=== PATIENT | female | born 1945 | race Caucasian/White ===

== ENCOUNTER 2020-03-05 08:10 | Outpatient (CLI) | payer MEDICARE, SELFPAY ==
[2020-03-05 10:00] LABS: Basophils Percent Auto 0.7 % (0.2-1.2); Eosinophils Absolute Auto 0.3 K/mm3 (0-0.3); Eosinophils Percent Auto 4.4 % (0-4.4); Hematocrit 37.7 % (37.0-47.0); Hemoglobin 12.1 g/dL (12.0-15.0); Immature Granulocyte Absolute 0.02 K/mm3 (0.00-0.031); Immature Granulocyte Percent A 0.3 % (0-0.5); Lymphocytes Absolute Auto 1.56 K/mm3 (0.9-3.2); Lymphocytes Percent Auto 26.2 % (18.3-44.2); Mean Corpuscular HGB Conc 32.1 g/dl (32-36); Mean Corpuscular Volume 93.5 fl (80-100); Mean Platelet Volume 9.4 fl (7.4-10.4); Monocytes Absolute Auto 0.5 K/mm3 (0.1-0.6); Monocytes Percent Auto 7.7 % (2.6-8.5); Neutrophils Absolute Auto 3.6 K/mm3 (1.3-6.7); Neutrophils Percent Auto 60.7 % (45.5-73.1); Platelet Count Result 287 k/mm3 (150-375); Red Blood Count 4.03 M/mm3 (4.2-5.4); Red Cell Distribution Width 13.2 % (11.5-14.5)
[2020-03-05 10:10] LABS: INR 0.9; Prothrombin Time 12.1 Seconds (11.1-14.7)
[2020-03-05 10:11] LABS: Partial Thromboplastin Time 23.6 SECONDS (22.3-36.8)
[2020-03-05 10:25] LABS: Alanine Aminotransferase 15 U/L (4-35); Albumin Level 4.4 g/dL (3.5-5.1); Alkaline Phosphatase 97 U/L (38-126); Aspartate Amino Transferase 26 U/L (14-36); Bilirubin,Total 0.3 mg/dL (0.2-1.3); Blood Urea Nitrogen 11 mg/dL (7-17); Calcium 9.4 mg/dL (8.4-10.2); Carbon Dioxide 28 mmol/L (22-30); Chloride 104 mmol/L (98-107); Estimated Glomerular Filt Rate > 60; Glucose 128 mg/dL (65-105); Potassium 3.4 mmol/L (3.4-5.0); Sodium 138 mmol/L (137-145)
[2020-03-05 10:42] LABS: Hemoglobin A1C 6.5 % (<5.7)
== END 2020-03-05 08:11 | disposition home or self-care (01) ==
LOC: ANHSURGERY 08:14
PROVIDERS: PCP Family Medicine; Visit Provider Urology
DX: E11.9 Type 2 diabetes mellitus without complications (principal); N81.4 Uterovaginal prolapse, unspecified; Z01.812 Encounter for preprocedural laboratory examination
CPT/HCPCS: 36415; 80053; 83036; 85025; 85610; 85730; 86850; 86900; 86901; 87077; 87086; 87088

== ENCOUNTER 2020-03-12 00:08 | Outpatient (CLI) | payer MEDICARE, SELFPAY ==
[2020-03-12 17:53] LABS: SARS-CoV-2 RNA PCR Negative
== END 2020-03-12 00:09 | disposition home or self-care (01) ==
LOC: ANHCOVIDDT 00:09
PROVIDERS: PCP Family Medicine; Visit Provider Urology
DX: Z20.828 Contact with and (suspected) exposure to other viral communicable diseases (principal); Z01.812 Encounter for preprocedural laboratory examination
CPT/HCPCS: 87635; C9803; U0003

== ENCOUNTER 2020-03-15 01:56 | Day surgery (SDC) | payer MEDICARE, SELFPAY ==
[2020-03-05 09:29] VITALS: BP 150/79; PULSE 68; RESP 16; TEMP 37; O2SAT 100
[2020-03-05 09:45] VITALS: BMI 27.3
[2020-03-05 09:46] VITALS: BMI 27.3
[2020-03-15] VITALS (20 sets, daily range): BP systolic 107–153; BP diastolic 41–72; PULSE 46–85; RESP 9–20; TEMP 36.2–36.7; O2SAT 91–100
--- NOTE | 2020-03-15 01:27 | PM.IMHP ---
H&P: HPI History of Present Illness Chief complaint: Uterine Polapse Narrative: Katja Diaz is a 75 year old female with a long history of pelvic relaxation with grade 3 cystocele and cervical descensus. She was unsing a pessary and does not want to use the pessary anymore. She has been evaluated by Dr. Chen and has opted for hysterectomy with the sacralcolpopexy. Review of Systems Review of Systems: All systems reviewed & are unremarkable except as noted in HPI and below Constitutional: Constitutional: Reports as per HPI Cardiovascular: Cardiovascular: Reports no additional cardiovascular complaints and Denies dyspnea Respiratory: Respiratory: Reports no additional respiratory complaints and Denies dyspnea Gastrointestinal: Gastrointestinal: Reports no additional gastrointestinal complaints and Denies abdominal pain Genitourinary: Genitourinary: Reports as per HPI Integumentary/Breasts: Skin/Breast: Reports as per HPI, Denies breast pain and Denies breast mass Neurologic: Reports system reviewed and no additional complaints, except as documented Psychiatric: Psychiatric: Reports no additional psychiatric complaints Endocrine: Endocrine: Reports no additional endocrine complaints [facility] Past Medical History Medical History (Updated 03/15/20 @ 06:54 by Chas Pedro MD) Arthritis Blockage of coronary artery of heart Chronic neck pain Cystocele Diabetes GERD (gastroesophageal reflux disease) History of shingles Hypertension Hypothyroidism Pelvic relaxation Surgical History Surgical History (Updated 03/15/20 @ 06:54 by Chas Pedro MD) History of coronary artery stent placement x1 stent 2012 Hx of cardiac catheterization 2012 1 STENT Social History Social History Smoking status: Never smoker Second hand tobacco smoke exposure: No Alcohol intake: never Gender identity (if verbalized by the patient): Female Meds Home Medications and Allergies Home Medications Medication Instructions Recorded Confirmed Type aspirin 81 mg tablet,delayed 81 mg PO DAILY 08/25/19 03/15/20 History release calcium carbonate 600 mg calcium 600 mg PO DAILY 08/25/19 03/15/20 History (1,500 mg) tablet esomeprazole magnesium 20 mg 20 mg PO DAILY 08/25/19 03/15/20 History capsule,delayed release losartan 25 mg tablet 25 mg PO BID 08/25/19 03/15/20 History metoprolol tartrate 25 mg tablet 12.5 mg PO BID 08/25/19 03/15/20 History levothyroxine 100 mcg tablet 100 mcg PO DAILY #90 tablet 09/10/19 03/15/20 Rx metformin 500 mg tablet,extended 500 mg PO DAILY #90 tablet 12/24/19 03/15/20 Rx release 24 hr cholecalciferol (vitamin D3) 50 50 mcg PO DAILY 01/02/20 03/15/20 History mcg (2,000 unit) capsule Adult Probiotic 3,000 mmu cells PO DAILY 03/05/20 03/15/20 History Multiple Vitamin, Womens 1 tablet PO DAILY 03/05/20 03/15/20 History docusate sodium [Colace] 100 mg PO BID #60 cap 03/15/20 Rx hydrocodone-acetaminophen [[place]] 1 tablet PO Q4H PRN #20 tablet 03/15/20 Rx Allergies Allergy/AdvReac Type Severity Reaction Status Date / Time clindamycin Allergy Unknown Rash Verified 03/15/20 06:21 Penicillins Allergy Unknown Swelling Verified 03/15/20 06:21 of Lip/Tongue/Throat Sulfa (Sulfonamide Allergy Unknown Rash Verified 03/15/20 06:21 Antibiotics) lisinopril AdvReac Mild Cough Verified 03/15/20 06:21 Exam Const: General: healthy appearing, no acute distress, alert and awake Nutritional Appearance: well nourished Orientation/consciousness: oriented to person, oriented to place, oriented to time and patient oriented x3 HENMT: Head: normal to inspection Eyes: General: appearance normal, both eyes and all related structures Neck: Neck: normal visual inspection Lymphatic: no lymphadenopathy noted Resp: Effort & Inspection: normal respiratory effort and other Auscultation: clear to auscultation bilaterall
--- NOTE | 2020-03-15 06:05 | WPDHPUPDATE1 ---
History and Physical Update Update Date/Time: 03/15/20 06:05 History and Physical has been reviewed, including an updated exam of the patient. There are NO changes in the patient's condition. Risks, benefits, and alternatives have been discussed and questions answered. Patient agrees to proceed with procedure.
[2020-03-15] MEDS: LACTATED RINGERS 1,000 ML 30 ML IV CONT ×2 (06:35→10:33)
[2020-03-15 06:45] LABS: Glucose Point of Care 111 (65-105)
--- NOTE | 2020-03-15 06:49 | WPDANESEPPF ---
Anes - Initial Pre Proc Eval Procedure: Operation Date: 03/15/20 07:30 Proposed Procedures p Robotic Sacrocolpopexy,Possible Urethral Sling - Holland Chen MD s Robotic Assisted Supracervical Hysterectomy, Bilateral Salpingo-Oophorectomy - Artem Ayala MD Date/Time: 03/15/20 06:49 Surgeon: Holland Chen MD Pre Op Diagnosis: Uterine Polapse Patient Data Age: 75 Gender: F Height: 1.55 m Weight: 65.8 kg Last Vital Signs Temp 37.0 C 03/05/20 09:29 Pulse 68 03/05/20 09:29 Resp 16 03/05/20 09:29 BP 150/79 H 03/05/20 09:29 Pulse Ox 100 03/05/20 09:29 Allergies Allergy/AdvReac Type Severity Reaction Status Date / Time clindamycin Allergy Unknown Rash Verified 03/15/20 06:21 Penicillins Allergy Unknown Swelling Verified 03/15/20 06:21 of Lip/Tongue/Throat Sulfa (Sulfonamide Allergy Unknown Rash Verified 03/15/20 06:21 Antibiotics) lisinopril AdvReac Mild Cough Verified 03/15/20 06:21 Home Medications Medication Instructions Recorded Confirmed Type aspirin 81 mg tablet,delayed 81 mg PO DAILY 08/25/19 03/15/20 History release calcium carbonate 600 mg calcium 600 mg PO DAILY 08/25/19 03/15/20 History (1,500 mg) tablet esomeprazole magnesium 20 mg 20 mg PO DAILY 08/25/19 03/15/20 History capsule,delayed release losartan 25 mg tablet 25 mg PO BID 08/25/19 03/15/20 History metoprolol tartrate 25 mg tablet 12.5 mg PO BID 08/25/19 03/15/20 History levothyroxine 100 mcg tablet 100 mcg PO DAILY #90 tablet 09/10/19 03/15/20 Rx metformin 500 mg tablet,extended 500 mg PO DAILY #90 tablet 12/24/19 03/15/20 Rx release 24 hr cholecalciferol (vitamin D3) 50 50 mcg PO DAILY 01/02/20 03/15/20 History mcg (2,000 unit) capsule lactobacillus combination no.8 3,000 mmu cells PO DAILY 03/05/20 03/15/20 History [Adult Probiotic] lrjsvyaonltl-Ce-ruyv-minerals 1 tablet PO DAILY 03/05/20 03/15/20 History [Multiple Vitamin, Womens] Laboratory Tests 03/15/20 06:36 POC Capillary Glucose 111 mg/dl H mg/dl (65-105) Other Studies: stress 03/2019 - normal perfusion, ef 73% Patient hx anesthesia problems: none Family hx anesthesia problems: none PMFSH Past Medical History Medical History (Updated 03/15/20 @ 06:54 by Chas Pedro MD) Arthritis Blockage of coronary artery of heart Chronic neck pain Cystocele Diabetes GERD (gastroesophageal reflux disease) History of shingles Hypertension Hypothyroidism Pelvic relaxation Surgical History Surgical History (Updated 03/15/20 @ 06:54 by Chas Pedro MD) History of coronary artery stent placement x1 stent 2011 Hx of cardiac catheterization 2011 1 STENT Social History Social History Smoking status: Never smoker Second hand tobacco smoke exposure: No Alcohol intake: never Gender identity (if verbalized by the patient): Female Anes - Eval Final PreProcedure Day of Procedure 03/15/20 06:49 Patient weight: overweight Heart: regular rate and rhythm Lungs: clear to auscultation and normal air movement Airway: Mallampati scale class II Neurological: alert and oriented Last oral intake: >/= 8 hours ASA classification: III Emergent: no Anesthetic plan: proceed Anesthesia type and monitoring: general ETT Informed Consent: The patient's anesthetic plan and its attendant risks and benefits were discussed with the patient/family/POA. Questions were solicited and answers provided to the satisfaction of the patient/family/POA.
--- NOTE | 2020-03-15 07:34 | SUR.PREOP ---
family update provided to daughter anthony
[2020-03-15] MEDS: levoFLOXacin 500 MG/D5W 100 ML 500 MG/100 ML BAG 100 MG IVPB (07:39)
[2020-03-15] MEDS: metroNIDAZOLE 500 MG/ISO 100ML 500 MG/100 ML BAG 100 MG IVPB ×2 (07:50→17:24)
--- NOTE | 2020-03-15 09:00 | P.OP_ITS ---
Procedure Note - Detailed Date of procedure: 03/16/20 Pre-op diagnosis: Uterine Polapse 1. Pelvic organ prolapse 2.Cystocele Post-op diagnosis: same Procedure performed: Robotic assisted laparoscopic supracervical hysterectomy with bilateral salpingo-oophorectomy. Description of procedure: Patient was taken to the operating room. General endotracheal anesthesia was administered. She was placed in low lithotomy pos ition and prepped and draped in sterile fashion. An exam under anesthesia was performed she was noted to have a prolapsing cystocele her cervix was within 1 cm of the introitus. At this time Dr. Chen started the procedure with insertion of the ports please see his note for dictation of this. After the ports were inserted then attention was turned to the surgery console and attention was turned to the right round ligament which was grafted incised in the midline and cauterized. The anterior leaf of the broad ligament was further dissected anteriorly dissecting the peritoneum from the of the bladder from the lower uterine segment. Attention was then turned to the left infundibulopelvic ligament which was cauterized and incised the fallopian tube was then cauterized from the broad ligament. The broad ligament was further cauterized the ascending uterine vessels were cauterized the uterine arteries were skeletonized and the uterine arteries were then cauterized on the right side. Attention was then turned to the left side the distal fallopian tube was adhesed to the left pelvic wall the adhesions were lysed the distal fallopian tube was then cauterized the infundibulopelvic ligament on the left was cauterized and incised the fallopian tube was further cauterized from the broad ligament. Attention was then turned to the left round ligament which was grasped in the middle and dense and cauterized and incised the anterior leaf of the broad ligament was further dissected anteriorly the vesicouterine peritoneum was dissected from the lower uterine segment the bladder was mobilized from the lower uterine segment the ascending uterine vessels were cauterized the uterine arteries were skeletonized. The cervix was then cauterized from the lower uterine segment. The cervical bed was cauterized hemostasis was noted. An Endo-Catch bag was inserted and the uterus fallopian tubes and ovaries were placed into the back and secured. Hemostasis was noted at the surgery site patient tolerated procedure well EBL was less than [address] Chen then took over the care of the patient. Anesthesia: GETA Surgeon: Artem Ayala MD Estimated blood loss (mL): 5 Drains: No Packing: No Pathology: yes (uterus with right and left fallopian tubes and ovaries) Complications: No immediate complications Condition: stable Disposition: other (Patient remained in room for Dr. Chen's procedure.) Findings: Normal uterus fallopian tubes and atretic ovaries bilaterally.
[2020-03-15] MEDS: BUPIVACAINE/EPINEPHRINE 0.25% 50 ML VIAL 27 ML INFILTRATE (10:01)
--- NOTE | 2020-03-15 10:18 | PM.PROC ---
Procedure Note - Detailed Date of procedure: 03/15/20 Pre-op diagnosis: Uterine Polapse Uterine prolapse Female perineal laxity Stress urinary incontinence Post-op diagnosis: same Procedure performed: Robotic assisted laparoscopic sacral colpopexy Perineoplasty Mid urethral sling Cystoscopy Description of procedure: She understood the risks of bleeding, infection, damage to surrounding organs, bowel injury, bowel obstruction, recurrence of prolapse, persistent or recurrent stress incontinence, mesh related complications including exposure and extrusion, diskitis, postoperative voiding dysfunction including incontinence and retention, hip and leg pain, dyspareunia, and she agrees to proceed. She was correctly identified and informed consent was obtained. She was brought to the operating room. She was given general anesthesia. She was placed in the dorsal lithotomy position. All pressure points were padded. She was given appropriate perioperative antibiotics. Time-out performed. I anesthetized the skin 3 fingerbreadths cephalad to the umbilicus. I incised the skin. I dissected down to locate the fascia. I grasped the fascia with Jose clamps. I entered the fascia sharply. I placed Vicryl sutures for later fascial closure. I placed a midline trocar. Under direct vision 2 additional trocars were placed on the right and left upper quadrant. For a few wispy adhesions of omentum to the anterior abdominal wall. These were taken down sharply. There is no sign of any injury. She was placed in steep Trendelenburg and the robot was docked. Her pairer performed the portion of the procedure and left the specimen and a sac which was extracted. I then sat at the console. With the Sizer in the vagina I created a plane on the anterior and posterior vaginal wall. This was done for several cm taking great care not to injure the vagina, bladder, or rectum. I introduced the mesh into the abdomen. I sewed the anterior leaflet of mesh on the anterior vaginal wall and posterior leaf of the mesh on the posterior vaginal wall with several Whitsett-Mal sutures taking great care not to go through and through. I then reflected the colon laterally. I opened up the posterior peritoneum over the sacral promontory. I carried this into the cul-de-sac. I kept the ureters lateral. I freed up the edges. I located the anterior longitudinal ligament of the sacrum. I tensioned the mesh appropriately. I did a vaginal exam to ensure prolapse reduction without undue tension. I then sewed the proximal leaflet of mesh onto the ligament with 3 sutures of 2 0 Whitsett-Mal. Next the mass was meticulously retroperitonealized with a running 2 0 Monocryl suture. I allowed the colon to go back into its normal anatomic location. There is no signs of any impingement or stricturing. The abdomen was exited. Fascia was closed. Skin was closed with Monocryl and glue. She was repositioned and prepped for perineal surgery. She had quite a bit of perineal laxity. I zhen out a kayce-shaped area of skin in the perineum. I anesthetized the skin. I removed this area of skin sharply. I then performed a perineoplasty with 0 Vicryl suture. I used a 2 0 Vicryl suture to close mucosa to mucosa. She had excellent perineal support without undue narrowing of the vagina. I turned my attention towards the urethral sling. Examination revealed a mild amount of cystocele. She had excellent apical support. Examination of the apex revealed an excoriated cervix but no sign of any mesh exposure or exposure of suture. I marked out the thigh incisions. I anesthetize the skin and made those incisions. I anesthetized the anterior vaginal wall over the mid urethra. I made a 1 cm incision. I dissected out laterally taking great care not to injure the urethra or the vaginal wall. I next passed the helical trocars to 1st on the left and then on the right. This was done from the thigh incision towards the vaginal inc
[2020-03-15] MEDS: ONDANSETRON INJ 4 MG/2 ML VIAL IV PUSH ×2 (11:20→17:30)
[2020-03-15] MEDS: SCOPOLAMINE 1.5 MG PATCH TRANSDERM (11:42)
[2020-03-15] MEDS: HALOPERIDOL LACTATE 5 MG/ML VIAL 1 MG IV PUSH (12:18)
--- NOTE | 2020-03-15 13:06 | PC.NURSE ---
This patient, Katja Diaz, was received from PACU on 03/15/20 at 1306. Personal belongings at side. . Patient/family oriented to unit policies and routines
[2020-03-15] MEDS: KCL 20 MEQ/D5/0.45% SOD CHL 1,000 ML 100 ML IV CONT (13:44)
[2020-03-15] MEDS: KETOROLAC 15 MG/ML VIAL (*BKC) IV PUSH (13:45)
[2020-03-15] MEDS: MORPHINE SULFATE 2 MG/ML INJ IV PUSH (13:46)
[2020-03-16] MEDS: metroNIDAZOLE 500 MG/ISO 100ML 500 MG/100 ML BAG 100 MG IVPB ×2 (01:00→09:55)
[2020-03-16 02:00] VITALS: BP 120/48; PULSE 72; RESP 20; TEMP 37.2; O2SAT 96
[2020-03-16] MEDS: ONDANSETRON INJ 4 MG/2 ML VIAL IV PUSH ×2 (02:11→13:07)
[2020-03-16] MEDS: KETOROLAC 15 MG/ML VIAL (*BKC) IV PUSH (02:12)
[2020-03-16 04:50] VITALS: BP 93/42; PULSE 73; RESP 16; TEMP 37.7; O2SAT 95
[2020-03-16 05:56] VITALS: PULSE 73; RESP 16; O2SAT 95
[2020-03-16 06:50] VITALS: BP 114/57; PULSE 62; RESP 18; TEMP 37
--- NOTE | 2020-03-16 07:35 | PM.GYNPNOP ---
[employer] - A/P Assessment and plan (1) Encounter for postoperative care: Code(s): Z48.89 - Encounter for other specified surgical aftercare Status: Acute Assessment and Plan: She is doing OK. Encourage ambulation. Adequate pain control. Anticipate this later today once ambulating and eating better. Postoperative Procedures: Procedures Operation Date: 03/15/20 07:30 Actual Procedures Side Surgeon p Robotic Sacrocolpopexy, Urethral Sling Holland Chen MD s Robotic Assisted Supracervical Hysterectomy, Bilateral Salpingo-Oophorectomy Artem Ayala MD Time Spent With Patient Time: Total time spent is greater than 50% in coordination of care (as documented) at patient's floor/unit and/or counseling patient: Time with patient: less than 15 minutes [employer]- PN:Subj Post-Op Subjective Date/time seen: 03/16/20 07:35 She had nausea and emesis last pm and early this am. She tolerated a few cheerios this am. She has sat up in chair. Has not ambulated. No flatus. Interval history: She has set up in a chair. She has had a good pain control. Subjective: pain is well controlled and patient is tolerating oral intake Review of Systems Review of Systems: All systems reviewed & are unremarkable except as noted in HPI and below Cardiovascular: Cardiovascular: Reports no additional cardiovascular complaints Respiratory: Respiratory: Reports no additional respiratory complaints Gastrointestinal: Gastrointestinal: Reports belching Genitourinary: Genitourinary: Reports no additional female genitourinary complaints Musculoskeletal: Musculoskeletal: Reports no additional musculoskeletal complaints Exam Const: General: comfortable and no acute distress Orientation/consciousness: oriented to person, oriented to place and oriented to time Resp: Auscultation: clear to auscultation bilaterally Cardio: Rate: regular rate Rhythm: regular rhythm GI: GI Palp: Yes Soft to palpation and No Tenderness to palpation present (GI) Auscultation: Hypoactive bowel sounds present and other (mild distension, no guarding, nontender) Neuro: General: oriented to person, oriented to place and oriented to time Extrem: General: no calf tenderness Psych: Mental Status: mental status grossly normal [employer] - PN: Obj Data Vital Signs Vital Signs: Vital Signs - 24 hr 03/15/20 10:32 03/15/20 10:45 03/15/20 11:00 Temperature 97.2 F L Pulse Rate 79 56 L 58 L Respiratory Rate 9 L 12 16 Blood Pressure 125/47 L 131/59 L 146/55 H Pulse Oximetry 100 100 93 03/15/20 11:15 03/15/20 11:30 03/15/20 11:45 Temperature 97.6 F Pulse Rate 46 L 49 L 54 L Respiratory Rate 14 16 18 Blood Pressure 127/46 L 130/56 L Pulse Oximetry 91 97 98 03/15/20 12:00 03/15/20 12:15 03/15/20 12:30 Temperature Pulse Rate 51 L 61 47 L Respiratory Rate 13 18 12 Blood Pressure 133/72 139/63 120/57 L Pulse Oximetry 97 97 98 03/15/20 12:45 03/15/20 13:14 03/15/20 13:15 Temperature 97.8 F 97.8 F Pulse Rate 49 L 58 L 59 L Respiratory Rate 12 20 16 Blood Pressure 134/48 L 146/50 H 146/50 H Pulse Oximetry 99 100 100 03/15/20 13:30 03/15/20 14:00 03/15/20 14:30 Temperature Pulse Rate 56 L 85 62 Respiratory Rate 16 16 16 Blood Pressure 134/51 L 153/72 H 111/45 L Pulse Oximetry 100 100 100 03/15/20 15:00 03/15/20 16:00 03/15/20 17:00 Temperature 97.4 F L 98.1 F 97.7 F Pulse Rate 56 L 60 54 L Respiratory Rate 16 18 20 Blood Pressure 107/41 L 152/58 H 140/62 Pulse Oximetry 100 100 03/15/20 18:45 03/16/20 02:00 03/16/20 04:50 Temperature 97.8 F 98.9 F 99.8 F H Pulse Rate 62 72 73 Respiratory Rate 18 20 16 Blood Pressure 146/72 H 120/48 L 93/42 L Pulse Oximetry 100 96 95 03/16/20 05:56 03/16/20 06:50 Temperature 98.6 F Pulse Rate 73 62 Respiratory Rate 16 18 Blood Pressure 114/57 L Pulse Oximetry 95 Intake/Output Intake/Output: Intake & Output 03/13/20 03/14/20 03/15/20 03/16/20 23:59 23:59 23:59 2
--- NOTE | 2020-03-16 07:55 | WPDANESPN ---
Anes - Prog Note Post-Op Date/Time: 03/16/20 07:55 Cardiovascular status: normal Respiratory status: normal Airway patency: baseline Mental status: baseline Post-Op hydration status: normal Vital Signs: Last Vital Signs Temp 37.0 C 03/16/20 06:50 Pulse 62 03/16/20 06:50 Resp 18 03/16/20 06:50 BP 114/57 L 03/16/20 06:50 Pulse Ox 95 03/16/20 05:56 I/O: Intake & Output 03/15/20 03/15/20 03/16/20 15:59 23:59 07:59 Intake Total 800 500 200 Output Total 275 250 800 Balance 525 250 -600 Post-procedural complaints: none Patient Feedback: Patient satisfied with anesthetic care.
[2020-03-16] MEDS: ENOXAPARIN 30 MG/0.3 ML SYRINGE SUB-Q (09:55)
[2020-03-16] MEDS: DOCUSATE SODIUM 100 MG CAPSULE PO (10:03)
[2020-03-16] MEDS: LOSARTAN POTASSIUM 25 MG TABLET PO (10:05)
[2020-03-16] MEDS: metFORMIN HCL XR 500 MG TAB.SR.24H PO (10:05)
[2020-03-16] MEDS: PANTOPRAZOLE 40 MG TABLET PO (10:06)
[2020-03-16] MEDS: LEVOTHYROXINE SODIUM 100 MCG TABLET PO (10:07)
[2020-03-16 10:08] VITALS: PULSE 72
[2020-03-16] MEDS: METOPROLOL TARTRATE 25 MG TABLET 12.5 MG PO (10:08)
[2020-03-16] MEDS: ACETAMINOPHEN 325 MG TABLET 650 MG PO ×2 (11:58→15:42)
--- NOTE | 2020-03-16 12:45 | WPDUROPN2 ---
Progress Note: A&P Assessment and Plan (1) Cystocele: Status: Acute Assessment and Plan: Ok to discharge home after noon dose of antibiotics, if unable to urinate please place 16fr neal and follow up for neal removal. Patient will receive a fluid bolus as she is nauseated and vomiting therefore doesn't have enough intake to produce urine. We will also give Ondansetron and give her some more time to urinate and get nausea under control. Subjective Subjective Date/Time Seen: 03/16/20 12:45 POD #1 Robotic Assisted Laparoscopic Sacral Colpopexy Review of Systems Cardiovascular: Cardiovascular: Denies chest pain Respiratory: Respiratory: Reports no additional respiratory complaints Gastrointestinal: Gastrointestinal: Reports abdominal pain (at incisions only), Reports nausea and Denies vomiting Genitourinary: Genitourinary: Reports other (neal out, no urination yet) Exam Resp: Effort & Inspection: normal respiratory effort Cardio: Rate: regular rate GI: GI Palp: Yes abdominal tenderness (over incisons only) and Yes Soft to palpation : Speculum Exam - Vagina: No vaginal bleeding Extrem: General: no edema Objective Data Vital Signs Vital Signs: Vital Signs - 24 hr 03/15/20 13:14 03/15/20 13:15 03/15/20 13:30 Temperature 97.8 F 97.8 F Pulse Rate 58 L 59 L 56 L Respiratory Rate 20 16 16 Blood Pressure 146/50 H 146/50 H 134/51 L Pulse Oximetry 100 100 100 03/15/20 14:00 03/15/20 14:30 03/15/20 15:00 Temperature 97.4 F L Pulse Rate 85 62 56 L Respiratory Rate 16 16 16 Blood Pressure 153/72 H 111/45 L 107/41 L Pulse Oximetry 100 100 100 03/15/20 16:00 03/15/20 17:00 03/15/20 18:45 Temperature 98.1 F 97.7 F 97.8 F Pulse Rate 60 54 L 62 Respiratory Rate 18 20 18 Blood Pressure 152/58 H 140/62 146/72 H Pulse Oximetry 100 100 03/16/20 02:00 03/16/20 04:50 03/16/20 05:56 Temperature 98.9 F 99.8 F H Pulse Rate 72 73 73 Respiratory Rate 20 16 16 Blood Pressure 120/48 L 93/42 L Pulse Oximetry 96 95 95 03/16/20 06:50 03/16/20 10:08 Temperature 98.6 F Pulse Rate 62 72 Respiratory Rate 18 Blood Pressure 114/57 L Pulse Oximetry Intake/Output Intake/Output: Intake & Output 03/13/20 03/14/20 03/15/20 03/16/20 23:59 23:59 23:59 23:59 Intake Total 1300 300 Output Total 525 800 Balance 775 -500 Meds/Results Medications: Active Medications Generic Name Dose Route Start Last Admin Trade Name Freq PRN Reason Stop Dose Admin Acetaminophen 650 mg 03/15/20 12:59 03/16/20 11:58 Tylenol Tablet PO 650 mg Q4H PRN Administration Mild Pain (1-3) or Fever Hydrocodone Bitart/Acetaminophen 1 tab 03/15/20 12:59 [place] 5-325 Mg PO Q4H PRN Pain Rated 4-5 Dextrose 12.5 gm 03/15/20 12:59 Dextrose 50% Syringe IV PUSH PRN PRN Hypoglycemia Protocol Diphenhydramine HCl 25 mg 03/15/20 12:59 Benadryl Inj IV PUSH Q6H PRN Itching Docusate Sodium 100 mg 03/15/20 12:59 03/16/20 10:03 Colace Capsule PO 100 mg DAILY DONNIE Administration Enoxaparin Sodium 30 mg 03/16/20 09:00 03/16/20 09:55 Lovenox SUB-Q 30 mg DAILY DONNIE Administration Glucagon 1 mg 03/15/20 12:59 Glucagon For Inj IM PRN PRN Hypoglycemia Protocol Glucose 15 gm 03/15/20 12:59 Glutose 15 PO PRN PRN Hypoglycemia Protocol Dextrose 1,000 mls @ 100 mls/hr 03/15/20 12:59 Dextrose 5% 1,000 Ml IVPB PRN PRN Hypoglycemia Protocol Potassium Chloride/Dextrose/Sod Cl 1,000 mls @ 100 mls/hr 03/15/20 12:59 03/15/20 13:44 Kcl 20 Meq/D5/0.45% Sod Chl IV CONT 100 mls/hr .Q10H DONNIE Administration Metronidazole 500 mg in 100 mls @ 100 mls/hr 03/15/20 16:00 03/16/20 09:55 Flagyl 500 Mg/Iso Soln 100 Ml IVPB 100 mls/hr Q8H DONNIE Administration Insulin Aspart 3 - 6 units 06/22/20 12:59 Novolog SUB-Q [facility] Protocol Ketorolac T
[2020-03-16] MEDS: LACTATED RINGERS 1,000 ML 100 ML IV CONT (13:07)
--- NOTE | 2020-03-16 13:30 | PC.NURSE ---
pt voided but missed the Uhat.
--- NOTE | 2020-03-16 14:46 | PC.NURSE ---
Bladder scan done; pt has 39 remaining in bladder per scanner results.
== END 2020-03-16 15:46 | disposition home or self-care (01) ==
LOC: ANHSURGERY 08:13 → ANHOB2 13:04
PROVIDERS: Obstetrics & Gynecology; PCP Family Medicine; Visit Provider Urology
PROC: (CPT 57425; principal; 2020-03-15 07:30)
PROC: 0UT94ZZ Resection of Uterus, Percutaneous Endoscopic Approach (ICD-10-PCS; CPT 57425; 2020-03-15 07:30)
DX: N81.89 Other female genital prolapse (principal); N39.3 Stress incontinence (female) (male); N80.0 Endometriosis of uterus; N73.6 Female pelvic peritoneal adhesions (postinfective); I10 Essential (primary) hypertension; I25.10 Atherosclerotic heart disease of native coronary artery without angina pectoris; E03.9 Hypothyroidism, unspecified; E11.9 Type 2 diabetes mellitus without complications; K21.9 Gastro-esophageal reflux disease without esophagitis; Z95.5 Presence of coronary angioplasty implant and graft; Z79.82 Long term (current) use of aspirin; Z79.84 Long term (current) use of oral hypoglycemic drugs
CPT/HCPCS: 57425; 57288; 58542; S2900; 88307; 99199; A9270; C1771; C1781; J0131; J0330; J1100; J1170; J1630; J1650; J1885; J1956; J2270; J2370; J2405; J2704; J2710; J3010; J3480; J7030; J7120

== ENCOUNTER 2020-11-29 13:59 | Outpatient (CLI) | payer MEDICARE, SELFPAY | END 2020-11-29 14:00 | disposition home or self-care (01) | LOC: ANHCOVIDVC 13:59 | PROVIDERS: PCP Physician Assistant | DX: Z23 Encounter for immunization (principal) | CPT/HCPCS: 0001A; 91300 ==

== ENCOUNTER 2020-12-20 13:30 | Outpatient (CLI) | payer MEDICARE, SELFPAY | END 2020-12-20 13:31 | disposition home or self-care (01) | LOC: ANHCOVIDVC 13:30 | PROVIDERS: PCP Physician Assistant | DX: Z23 Encounter for immunization (principal) | CPT/HCPCS: 0002A; 91300 ==

== ENCOUNTER 2021-08-19 16:25 | Emergency (ER) | payer MEDICARE, SELFPAY ==
--- NOTE | ~2021-08-19 | CT_ITS ---
EXAMINATION: CT brain wo con DATE: 08/19/2021 18:20 INDICATION: Status post fall. Headache. TECHNIQUE: Computed tomography (CT) of the head was performed without intravenous contrast. The dose- length product was 605.33 mGy-cm. Automated exposure control and iterative reconstruction technique w ere employed. COMPARISON: None FINDINGS: Generalized atrophy. There are scattered mild periventricular and subcortical white matter changes, most likely related to small vessel ischemic disease (microangiopathy). No ventriculomegaly or midline shift. Basilar cisterns are patent. No acute intracranial hemorrhage, infarction, mass or mass effect. There is chronic mucosal thickening of the left sphenoid sinus with mucoperiosteal react ion. Mastoids are pneumatized. IMPRESSION: 1. No acute intracranial abnormality. 2: Chronic left sphenoid sinus disease. 3: Chronic age-related findings. Reviewed, dictated and finalized at location A. HT ENGINEER
--- NOTE | ~2021-08-19 | XR_ITS ---
XR shoulder LT min 2V 08/19/2021 17:40 Indication: Left shoulder pain after trauma Procedure: 3 views left shoulder Comparison: No prior studies for comparison. Findings: Osteopenia. There is a left humeral neck fracture which may be comminuted. There is probabl e pseudosubluxation of the humeral head. Surrounding osseous structures within normal limits. Impression: 1: Nondisplaced left humeral neck fracture with probable pseudosubluxation. Reviewed, dictated and finalized at location A. TRICIAN'S ASSISTANT Impression: 1: Nondisplaced left humeral neck fracture with probable pseudosubluxation.
--- NOTE | ~2021-08-19 | CT_ITS ---
EXAMINATION: CT facial & cervical spine wo DATE: 08/19/2021 18:20 INDICATION: Facial and neck pain after fall TECHNIQUE: Computed tomography (CT) of the maxillofacial region and cervical spine was performed with out intravenous contrast. The dose-length product was 243.76 mGy-cm. Automated exposure control and iterative reconstruction technique were employed. COMPARISON: None FINDINGS: MAXILLOFACIAL CT: Chronic left sphenoid sinus disease. Nasal bone is intact. Orbits are within normal limits without ev idence for blowout fracture. Zygomatic arches and pterygoid plates within normal limits. No acute abn ormality of the mandible. Temporomandibular joints demonstrate mild degenerative changes symmetricall y. CERVICAL SPINE CT: Normal cervical alignment. There is degenerative disc disease at C5-6 and C6-7. Odontoid process with in normal limits. There is mild multilevel facet and uncinate degenerative change. There is biapical pleural thickening/scarring. No evidence for perched facet. No significant paraspinal soft tissue abn ormality. There is carotid atherosclerosis. IMPRESSION: 1. No acute abnormality of the facial bones or cervical spine. Reviewed, dictated and finalized at location A. MBLER MOTOR VEHICLE
--- NOTE | ~2021-08-19 | XR_ITS ---
XR femur LT min 2V 08/19/2021 18:29 Indication: Left leg pain after fall Procedure: 2 views left femur Comparison: No prior studies for comparison. Findings: There are amorphous areas of chondroid matrix in the distal aspect of the femur which may r epresent enchondromas or bone infarcts. No acute fracture, subluxation or dislocation. There is mild degenerative change of the left hip. No focal soft tissue abnormality. Impression: 1: No acute fracture. Reviewed, dictated and finalized at location A. ENGINEER Impression: 1: No acute fracture.
--- NOTE | ~2021-08-19 | XR_ITS ---
XR chest 1V portable 08/19/2021 18:29 Indication: Status post fall. Chest pain. Procedure: AP view of the chest Comparison: 10/16/2011 Findings: Heart size normal. There is atherosclerosis of the aorta. Calcified granulomas of the right lower lung. No focal air space disease, pulmonary edema, pleural effusion or suspected pneumothorax. There is biapical pleural thickening/scarring. There is atherosclerosis and ectasia of the aorta. Impression: 1: No acute cardiopulmonary disease. Reviewed, dictated and finalized at location A. ITECTURE CONSULTANT Impression: 1: No acute cardiopulmonary disease.
[2021-08-19 16:43] VITALS: BP 149/72; PULSE 77; RESP 15; TEMP 36.8; O2SAT 98
[2021-08-19] MEDS: HYDROcodone/acetaminophen (*CRX) 5-325 MG TABLET 1 TAB PO (18:37)
--- NOTE | 2021-08-19 18:46 | ED.FALL ---
HPI - Fall General Chief Complaint: Fall Stated Complaint: fall, left shoulder pain Time Seen by Provider: 08/19/21 17:40 Source: RN notes reviewed History of Present Illness HPI Narrative: Patient presents to emergency department from home for a fall. Patient states that they had come back home and she is carrying a drink and she had been down to get something for her cats when she had slipped and fell into the 2 steps to lead up her house patient landed on her left shoulder and had pain at that time in her left shoulder with pain with any movement of the left shoulder she states she did strike the right side of her head and does not believe she lost consciousness she also notes a bruise on her chin and left mid leg patient has been able to get up and ambulate since the fall she denies being on any blood thinners denies a headache vision changes shortness of breath or abdominal pain she does note mild pain in the left upper chest as well as left upper back around the region of the shoulder Related Data Home Medications Medication Instructions Recorded Confirmed aspirin 81 mg tablet,delayed 81 mg PO DAILY 08/25/19 07/06/21 release calcium carbonate 600 mg calcium 600 mg PO DAILY 08/25/19 07/06/21 (1,500 mg) tablet esomeprazole magnesium 20 mg 20 mg PO DAILY 08/25/19 07/06/21 capsule,delayed release losartan 25 mg tablet 25 mg PO BID 08/25/19 07/06/21 metoprolol tartrate 25 mg tablet 12.5 mg PO BID 08/25/19 07/06/21 cholecalciferol (vitamin D3) 50 50 mcg PO DAILY 01/02/20 07/06/21 mcg (2,000 unit) capsule Adult Probiotic 3,000 mmu cells PO DAILY 03/05/20 07/06/21 Multiple Vitamin, Womens 1 tablet PO DAILY 03/05/20 07/06/21 hydrocortisone valerate 0.2 % 1 applic TOPICAL BID PRN 07/07/20 07/06/21 topical cream Allergies Allergy/AdvReac Type Severity Reaction Status Date / Time clindamycin Allergy Unknown Rash Verified 07/06/21 10:33 Penicillins Allergy Unknown Swelling Verified 07/06/21 10:33 of Lip/Tongue/Throat Sulfa (Sulfonamide Allergy Unknown Rash Verified 07/06/21 10:33 Antibiotics) lisinopril AdvReac Mild Cough Verified 07/06/21 10:33 Review of Systems Review of Systems: Gen.: Denies fevers or chills ENT: Denies congestion Respiratory: Denies shortness of breath or cough CV: Denies chest pain or palpitations GI: Denies abdominal pain nausea, emesis or diarrhea Musculoskeletal: See HPI Neuro: Denies numbness, tingling, weakness or focal weakness Skin: Denies rash Except as documented, all other systems reviewed and negative PMFSH Past Medical History Medical History Arthritis Blockage of coronary artery of heart Chronic neck pain Cystocele Diabetes GERD (gastroesophageal reflux disease) History of shingles Hypertension Hypothyroidism Pelvic relaxation Prolapsed bladder Surgical History Surgical History H/O: hysterectomy History of coronary artery stent placement x1 stent 2012 Hx of cardiac catheterization 2012 1 STENT Family History Family History Father Carcinoma of colon, Onset Age: 77 Patient's father is Family history of malignant neoplasm of stomach Sibling Family history of malignant melanoma Acute myocardial infarction Grandparent Family history of type 2 diabetes mellitus Diabetes mellitus Family history of cardiovascular disease Cerebrovascular accident Family history of throat cancer Social History Social History Smoking status: Never smoker Second hand tobacco smoke exposure: No Alcohol intake: never Gender identity (if verbalized by the patient): Female Exam Narrative: APPEARANCE: Well appearing, no apparent distress, well-nourished. HEENT: normocephalic no tenderness palpation of bilateral zygomatic arc
[2021-08-19 19:16] VITALS: BP 143/74; PULSE 78; RESP 18; O2SAT 100
== END 2021-08-19 19:18 | disposition home or self-care (01) ==
PROVIDERS: Emergency Provider Emergency Medicine; PCP Family Medicine
DX: S42.215A Unspecified nondisplaced fracture of surgical neck of left humerus, initial encounter for closed fracture (principal); S70.12XA Contusion of left thigh, initial encounter; S00.83XA Contusion of other part of head, initial encounter; Z79.82 Long term (current) use of aspirin; E11.9 Type 2 diabetes mellitus without complications; K21.9 Gastro-esophageal reflux disease without esophagitis; I10 Essential (primary) hypertension; E03.9 Hypothyroidism, unspecified; N81.10 Cystocele, unspecified; Z95.5 Presence of coronary angioplasty implant and graft; J32.3 Chronic sphenoidal sinusitis; W01.0XXA Fall on same level from slipping, tripping and stumbling without subsequent striking against object, initial encounter
CPT/HCPCS: 70450; 70486; 71045; 72125; 73030; 73552; 99284; A9270

== ENCOUNTER 2022-05-10 00:30 | Day surgery (SDC) | payer MEDICARE, SELFPAY ==
[2022-05-09 12:51] VITALS: BMI 26.4
[2022-05-10] VITALS (15 sets, daily range): BP systolic 101–145; BP diastolic 47–70; PULSE 53–67; RESP 12–21; TEMP 36.5; O2SAT 95–100; BMI 26.5
[2022-05-10 09:14] LABS: Basophils Absolute Auto 0.1 K/mm3 (0.0-0.1); Basophils Percent Auto 0.8 % (0.2-1.2); Eosinophils Absolute Auto 0.2 K/mm3 (0-0.3); Eosinophils Percent Auto 4.1 % (0-4.4); Hematocrit 36.4 % (37.0-47.0); Hemoglobin 11.7 g/dL (12.0-15.0); Immature Granulocyte Absolute 0.02 K/mm3 (0.00-0.031); Immature Granulocyte Percent A 0.3 % (0-0.5); Lymphocytes Absolute Auto 1.54 K/mm3 (0.9-3.2); Lymphocytes Percent Auto 26.1 % (18.3-44.2); Mean Corpuscular HGB Conc 32.1 g/dl (32-36); Mean Corpuscular Hemoglobin 30.1 pg (26-34); Mean Corpuscular Volume 93.6 fl (80-100); Mean Platelet Volume 9.1 fl (7.4-10.4); Monocytes Absolute Auto 0.5 K/mm3 (0.1-0.6); Neutrophils Absolute Auto 3.6 K/mm3 (1.3-6.7); Neutrophils Percent Auto 60.7 % (45.5-73.1); Platelet Count Result 274 k/mm3 (150-375); Red Blood Count 3.89 M/mm3 (4.2-5.4); Red Cell Distribution Width 13.3 % (11.5-14.5); White Blood Count 5.9 K/mm3 (4.5-10.0)
[2022-05-10 09:26] LABS: Anion Gap 9 mmol/L (8-16); Blood Urea Nitrogen 8 mg/dL (7-17); Calcium 9.4 mg/dL (8.4-10.2); Carbon Dioxide 28 mmol/L (22-30); Chloride 101 mmol/L (98-107); Estimated CRCL calculation 43 ml/min; Estimated Glomerular Filt Rate > 60; Glucose 105 mg/dL (65-110); Potassium 3.7 mmol/L (3.4-5.0); Sodium 138 mmol/L (137-145)
--- NOTE | 2022-05-10 10:09 | WPDMODSED ---
Moderate Sedation Note-Pt Data Patient Data Diagnosis: coronary artery disease with previous PCI exertional dyspnea abnormal nuclear stress test Present Complaint: exertional dyspnea/intermittent chest discomfort Procedure to be performed/Plan: left heart catheterization Allergies Allergy/AdvReac Type Severity Reaction Status Date / Time clindamycin Allergy Unknown Rash Verified 05/10/22 09:09 Penicillins Allergy Unknown Swelling Verified 05/10/22 09:09 of Lip/Tongue/Throat Sulfa (Sulfonamide Allergy Unknown Rash Verified 05/10/22 09:09 Antibiotics) hydrocodone AdvReac Severe Vomiting Verified 05/10/22 09:09 lisinopril AdvReac Mild Cough Verified 05/10/22 09:09 Home Medications Medication Instructions Recorded Confirmed Type aspirin 81 mg tablet,delayed 81 mg PO DAILY 08/25/19 05/09/22 History release (Adult Low Dose Aspirin) calcium carbonate 600 mg calcium 600 mg PO DAILY 08/25/19 05/09/22 History (1,500 mg) tablet (Calcium) esomeprazole magnesium 20 mg 20 mg PO DAILY 08/25/19 05/09/22 History capsule,delayed release (Nexium) losartan 25 mg tablet 25 mg PO BID 08/25/19 05/09/22 History metoprolol tartrate 25 mg tablet 12.5 mg PO BID 08/25/19 05/10/22 History cholecalciferol (vitamin D3) 50 50 mcg PO DAILY 01/02/20 05/09/22 History mcg (2,000 unit) capsule lactobacillus combination no.8 3 3,000 mmu cells PO DAILY 03/05/20 05/09/22 History billion cell capsule (Adult Probiotic) xqwbzrbqawax-Lf-mdcu-minerals 1 tablet PO DAILY 03/05/20 05/09/22 History (Multiple Vitamin, Womens tablet) docusate sodium 100 mg capsule 100 mg PO BID #60 caps 03/15/20 05/09/22 Rx (Colace) lancets (Accu-Chek Fastclix Lancet #100 ea 10/04/21 04/12/22 Rx Drum) blood sugar diagnostic (OneTouch #100 ea 04/12/22 04/12/22 Rx Ultra Test strips) levothyroxine 88 mcg tablet 88 mcg PO DAILY #90 tabs 04/17/22 05/09/22 Rx triamcinolone acetonide 0.1 % 1 applic topical BID PRN external 04/25/22 05/09/22 Rx topical ointment vaginal irritation #30 grams metformin 500 mg tablet,extended 500 mg PO DAILY 05/09/22 05/09/22 History release 24 hr Current Medications: Active Medications Sodium Chloride (Normal Saline Iv) 500 mls @ 100 mls/hr IV CONT .[facility] Sedation/Anesthesia: No previous sedation/anesthesia problems (including family history). [facility] Past Medical History Medical History Arthritis Blockage of coronary artery of heart Chronic neck pain Cystocele Diabetes GERD (gastroesophageal reflux disease) History of shingles Hypertension Hypothyroidism Left humeral fracture Pelvic relaxation Prolapsed bladder Surgical History Surgical History H/O: hysterectomy History of coronary artery stent placement x1 stent 2011 Hx of cardiac catheterization 2012 1 STENT Family History Family History Father Carcinoma of colon, Onset Age: 77 Patient's father is Family history of malignant neoplasm of stomach Sibling Family history of malignant melanoma Acute myocardial infarction Grandparent Family history of type 2 diabetes mellitus Diabetes mellitus Family history of cardiovascular disease Cerebrovascular accident Family history of throat cancer Social History Social History (Updated 04/12/22 @ 10:11 by Analy Ellison CMA) Smoking status: Never smoker Second hand tobacco smoke exposure: No Alcohol intake: never Substance use: never Substance use type: does not use Living arrangements: with family Gender identity (if verbalized by the patient): Female Spiritual care concerns: No Mod Sed Physical Exam Physical Exam Pre Procedural Exam: Normal: Appearance, Neck, Throat, Airway, Lungs, Heart Size, Heart Rate, Heart Rhythm, Neuro Exam and Extremities Hour
--- NOTE | 2022-05-10 10:42 | P.PCNCC_ITS ---
Cardiac Cath Procedure Note Date of procedure:: 05/10/22 Performing physician:: Emerson Wright MD Indication:: coronary artery disease with previous PCI abnormal nuclear stress test Brief clinical history:: this is a 77-year-old woman with a history of coronary disease with stenting of her left anterior descending 10 years ago. She is reporting symptoms of some exertional shortness of breath as well as some nonexertional intermittent chest pain. Nuclear stress testing has demonstrated evidence of anterior ischemia Procedure Procedure performed:: left ventriculogram coronary angiogram Sedation/Medication given:: Versed 2 mg Access site:: right femoral artery Estimated blood loss:: 20 cc Procedure note:: the patient was brought to the cardiac catheterization postabsorptive state where the right femoral triangle was prepared and draped in the normal fashion. Anesthesia was given with 1% lidocaine infiltrated locally. Using the modified Seldinger technique the right femoral artery was punctured and a 5 [place]i vascular sheath was placed. After this left heart catheterization carried out. A 5 [place]raini angled pigtail catheter was used left-sided as well as to inject the left ventriculogram in the 30 degree LUCIA projection. Following this I used a 5 [place]raini JR4 catheter to engage and inject the right coronary artery and then a 5 [place]i FL4 catheter to engage and inject the left coronary artery. the cineangiograms were then reviewed and the case was terminated angiogram was done of the femoral artery through the sheath after which I elected to have the sheath removed with direct manual compression. The procedure was well tolerated. There were no apparent complications. 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 Findings:: Hemodynamics: Central aortic pressure is 110 42 left ventricle 1100 end- diastolic pressure is 6 there no gradient across the aortic valve. Left ventricle: The LV is normal in size there appears to be mild concentric hypertrophy identified. Contractility is nicely preserved in all segments the ejection fraction appears to be 60-65% by visual estimation the left main coronary artery is nicely patent the left anterior descending artery is a moderate caliber vessel extending down to the apex. There is visible stent material in the mid LAD. Left anterior descending has minimal luminal irregularities but no flow-limiting disease is seen. The stented segment remains nicely patent. There is a mid diagonal branch stable off a in the stented segment has ostial stenosis of about 50-60%. The circumflex is a moderate caliber artery that is dominant to the posterior circulation the circumflex is smooth appearing and angiographically free of disease. The right coronary artery is very small in caliber non dominant and unremarkable angiographically Conclusion:: 1. left coronary dominant circulation with no evidence of significant coronary lesions at this time 2. well-preserved left ventricular systolic contractility 3. stented segment of the patient's LAD which was treated 10 years ago remains nicely patent Emerson Wright MD [facility]
== END 2022-05-10 16:35 | disposition home or self-care (01) ==
PROVIDERS: PCP Family Medicine; Visit Provider Specialist
PROC: 4A023N7 Measurement of Cardiac Sampling and Pressure, Left Heart, Percutaneous Approach (ICD-10-PCS; CPT 93452; principal; 2022-05-10 10:00)
DX: R94.39 Abnormal result of other cardiovascular function study (principal); I25.10 Atherosclerotic heart disease of native coronary artery without angina pectoris; Z95.5 Presence of coronary angioplasty implant and graft; I10 Essential (primary) hypertension; E78.5 Hyperlipidemia, unspecified; E03.9 Hypothyroidism, unspecified; E11.9 Type 2 diabetes mellitus without complications; K21.9 Gastro-esophageal reflux disease without esophagitis; Z79.82 Long term (current) use of aspirin; Z79.84 Long term (current) use of oral hypoglycemic drugs
CPT/HCPCS: 36415; 80048; 85025; 93458; C1887; C1894; J0583; J1644; J2250; J3010; J7040

== ENCOUNTER 2023-06-01 06:39 | Outpatient (CLI) | payer MEDICARE, SELFPAY ==
--- NOTE | ~2023-06-01 | CT_ITS ---
CT of the Abdomen and Pelvis: Indication: Anemia Technique: 2.5 mm axial scans were obtained through the abdomen and pelvis following intravenous adm inistration of 100 cc of Omnipaque 350. Dose reduction technique was used on this scan by utilizing a utomated exposure control and iterative reconstruction technique. The dose-length product (DLP) was 3 83.18 mGy-cm. COMPARISON: 11/11/2013 Findings: Scans through the lung bases demonstrate moderate to large hiatal hernia. The liver, spleen, pancreas, gallbladder, adrenals and right kidney are within normal limits. 4 mm no nobstructing left lower pole renal stone present. There are atherosclerotic calcifications of the aor ta. No lymphadenopathy. No bowel obstruction or bowel wall thickening. There is no evidence to suggest acute appendicitis. Images through the pelvis were performed. Possible urinary bladder wall thickening. No adnexal mass e vident. No ascites. Impression: Moderate to large hiatal hernia, unchanged. 4 mm nonobstructing left lower pole renal stone. Possible urinary bladder wall thickening. Correlate for cystitis. Reviewed, dictated and finalized at location M. Impression: Moderate to large hiatal hernia, unchanged. 4 mm nonobstructing left lower pole renal stone. Possible urinary bladder wall thickening. Correlate for cystitis.
== END 2023-06-01 06:40 | disposition home or self-care (01) ==
PROVIDERS: PCP Family Medicine; Visit Provider Nurse Practitioner Family
DX: D64.9 Anemia, unspecified (principal); N20.0 Calculus of kidney
CPT/HCPCS: 74177; Q9967

== ENCOUNTER 2024-08-25 12:08 | Outpatient (CLI) | payer MEDICARE, SELFPAY ==
--- NOTE | ~2024-08-25 | XR_ITS ---
AP view of the pelvis and AP and lateral views of the bilateral hips Clinical history: Pain Findings: No acute fracture or dislocation is seen. Osseous alignment is anatomic. Bilateral hip and SI joint spaces are preserved. Soft tissues are unremarkable. Impression: No significant abnormality is seen. Reviewed, dictated and finalized at [facility]. MARKETING DIRECTOR Impression: No significant abnormality is seen.
--- NOTE | ~2024-08-25 | XR_ITS ---
Lumbosacral Spine: AP, oblique, and lateral views Clinical History: Pain Findings: The normal lordotic curve is maintained. The vertebral bodies and posterior elements are i ntact. There is mild to moderate degenerative disc narrowing throughout the lumbar spine. There is mo derate to advanced facet arthropathy, especially from L4 through S1.. The sacroiliac joints are norm ally outlined. Impression: Moderate degenerative spondylosis overall, as above. Reviewed, dictated and finalized at location M. NO HOST Impression: Moderate degenerative spondylosis overall, as above.
== END 2024-08-25 12:09 | disposition home or self-care (01) ==
LOC: MICIMG 12:10
PROVIDERS: PCP Family Medicine; Visit Provider Family Medicine
DX: M47.816 Spondylosis without myelopathy or radiculopathy, lumbar region (principal); M25.552 Pain in left hip; M25.551 Pain in right hip
CPT/HCPCS: 72110; 73521

== ENCOUNTER 2024-11-15 17:40 | Inpatient (IN) | payer MEDICARE, SELFPAY ==
[2024-11-15] VITALS (34 sets, daily range): BP systolic 100–134; BP diastolic 58–94; PULSE 61–118; RESP 11–28; TEMP 36.6–36.8; O2SAT 88–100
--- NOTE | ~2024-11-15 | XR_ITS ---
EXAMINATION: XR chest 2V DATE: 11/15/2024 18:20 INDICATION: Chest pain. TECHNIQUE: Frontal and lateral views of the chest were obtained. COMPARISON: Chest single view 08/19/21 FINDINGS: Again seen is mild scarring at the lung apices. Calcified pulmonary nodules and calcified h ilar and mediastinal lymph nodes are consistent with old granulomatous disease. There is a diffuse in terstitial pattern in the lungs, consistent with pulmonary edema. There is a small left pleural effus ion. No pneumothorax. The heart size is normal. IMPRESSION: 1. Mild pulmonary edema. 2. Small left pleural effusion. Reviewed, dictated and finalized at location A. REACTOR OPERATOR
--- NOTE | ~2024-11-15 | XR_ITS ---
Portable chest x-ray Comparison: 11/15/2024 Clinical History: Shortness of breath Findings: Welun-az-mgdfwaqb bilateral pleural effusions are present, with moderate bibasilar/perihil ar pulmonary edema pattern. Cardiomediastinal silhouette is stable. Bones and soft tissues are unrem arkable. Impression: Moderate pulmonary edema pattern with small to moderate bilateral pleural effusions. Correlate clinic ally for pneumonia. Reviewed, dictated and finalized at [facility]. NT CUTTER Impression: Moderate pulmonary edema pattern with small to moderate bilateral pleural effus ions. Correlate clinically for pneumonia.
--- NOTE | 2024-11-15 17:42 | ECG_ITS ---
Test Date: 2024-11-15 17:49:19 Measurements Intervals [place] Rate: 75 P: 9 MS: 117 QRS: 15 QRSD: 102 T: 63 QT: 365 QTc: 408 Interpretive Statements SINUS RHYTHM WITH MARKED SINUS ARRHYTHMIA WITH SHORT MS INTERVAL BORDERLINE ST-T WAVE ABNORMALITY- INF/LAT LEADS BASELINE ARTIFACT- I, II, AVR, AVL, AVF BORDERLINE ECG No previous ECG available for comparison Electronically Signed On 11-16-2024 07:20:18 [employer] by Faustino Díaz D.O.
--- OUTSIDE RECORDS SUMMARY | 2024-11-15 17:42 | XMS_ITS | Referral Summary ---
Author Organization [facility] [address] [place] [id number] Care Team Providers Care Utility Porter Name Role Phone Zora Chavez MD Primary Care Provider [phone] Encounters Date Type Department Care Team Description 10/21/2024 1:00 PM REPAIRER ART OBJECTS Ancillary Procedure 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); Hypertension associated with diabetes (HCC); PVC's (premature ventricular contractions); Palpitations 10/02/2024 2:15 PM REPAIRER ART OBJECTS Ancillary Procedure [facility] Cardiology [address] [place] [phone] PVC's (premature ventricular contractions); Palpitations 10/02/2024 1:30 PM REPAIRER ART OBJECTS Office Visit [facility] Cardiology [address] [place] [address] [place] [phone] Gracia Moore MD 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) (Primary Dx); Hyperlipidemia associated with type 2 diabetes mellitus (HCC); Hypertension associated with diabetes (HCC); PVC's (premature ventricular contractions); Palpitations from Last 3 Months Allergies Active Allergy Reactions Criticality Noted Date Comments Clindamycin Itching Medium Reaction: ITCHING, , , Penicillins Hives,Swelling High Reaction: HIVES, Dgicmqm-Vus-Csg Reductase Inhibitors Sulfa (Sulfonamide Antibiotics) Itching,Rash Medium 01/20/2010 Reaction: ITCHING, Medications multivitamin tablet tablet take 1 tablet by oral route every day with food 0 2 Active aspirin 81 mg tablet take 1 tablet (81MG) by oral route every day 0 2 Active metFORMIN XR (GLUCOPHAGE XR) 500 mg 24 hr tablet Take 1 tablet (500 mg total) by mouth daily 1 Active triamcinolone (KENALOG) 0.1 % ointment 2 Active Accu-Chek Fastclix Lancet Drum misc USE DIRECTED DAILY TO CHECK GLUCOSE 2 Active levothyroxine (SYNTHROID) 88 mcg tablet Take 1 tablet (88 mcg total) by mouth formulator before breakfast Active FeroSuL 325 mg (65 mg iron) tablet Take 1 tablet (325 mg total) by mouth daily 3 Active losartan (COZAAR) 25 mg tablet Take 1 tablet by mouth twice daily 180 tablet 2 4 Active metoprolol tartrate (LOPRESSOR) 25 mg immediate release tablet TAKE 1/2 TABLET (12.5 MG TOTAL) BY MOUTH 2 (TWO) TIMES A DAY. 90 tablet 2 4 Active Active Problems Problem Noted Date Diagnosed Date Palpitations 10/02/2024 Nonintractable headache 03/30/2021 Loss of balance 03/30/2021 Memory loss 03/30/2021 Atypical chest pain 03/24/2019 Mitral valve insufficiency and aortic valve insu fficiency 10/10/2018 Coronary artery disease of n ative artery of [place] river heart with stable angina pectoris 10/15/2017 Hyperlipidemia LDL goal <70 04/09/2017 Hyperlipidemia associated with type 2 diabetes m ellitus 04/09/2017 PVC's (premature ventricular contractions) 04/09 Raynaud's syndrome without gangrene 04/09/2017 Hypertension associated with diabetes 07/29/2014 Overview (12/28/2016): Essential hypertension Atherosclerosis of coronary artery 07/29/2014 Overview (12/28/2016): Coronary atherosclerosis Social History Tobacco Use Types Packs/Day Years Used Date Smoking Tobacco: Never Smokeless Tobacco: Never Tobacco Cessation:Counseling Given: Not Answered Alcohol Use Standard Drinks/Week Comments No 0 (1 standard drink = 0.6 oz pur e alcohol) AUDIT-C Answer Date Recorded Q1: How often do you have a drink containing alc ohol? Never 05/12/2021 Average Number of Drinks Not on file 021 Frequency of Binge Drinking Not on file 04/24 Comments No Sex and Gender Information Value Date Recorded Sex Assigned at Not on file Legal Sex Female 10:31 AM REPAIRER ART OBJECTS Gender Identity Not on file Sexual Orientation Not on file Last Filed Vital Signs Vital Sign Reading Time Taken Comments Blood Pressure 114/60 10/02/2024 1:45 PM REPAIRER ART OBJECTS Pulse 60 10/02/2024 1:45 PM REPAIRER ART OBJECTS Temperature - - Respiratory Rate 18 01/31/2023 9:09 AM CDT Oxygen Saturation 99% 10/02/2024 1:45 PM REPAIRER ART OBJECTS Inhaled Oxygen Concentration - - Weight 62.1 kg (137 lb) 10/02/2024 1:45 PM REPAIRER ART OBJECTS Height 157.5 cm (5' 2 ) 10/02/2024 1:45 PM REPAIRER ART OBJECTS Body Mass Index 25.06 10/02/2024 1:45 PM REPAIRER ART OBJECTS Plan of Treatment Not on file Procedures Procedure Name Priority Date/Time Associated Diagnosis Comments TRANSTHORACIC ECHO (TTE) COMPLETE W DOPPLER/CF WO CONTRAST Routine 10/21/2024 1:30 PM REPAIRER ART OBJECTS 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) Hypertension associated with diabetes (HCC) PVC's (premature ventricular contractions) Palpitations ELECTROCARDIOGRAM REPORT Routine 025 3:41 PM REPAIRER ART OBJECTS 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) PVC's (premature ventricular contractions) Palpitations MCT - MOBILE CARDIAC TELEMETRY EVENT MONITOR Routine 10/02/2024 3:24 PM REPAIRER ART OBJECTS PVC's (premature ventricular contractions) Palpitations LIPID PANEL Routine 10/09/2023 from Last 3 Months or Most Recently Relevant to Health Maintenance Results * TRANSTHORACIC ECHO (TTE) COMPLETE W DOPPLER/CF WO CONTRAST (10/21/2024 1:30 PM REPAIRER ART OBJECTS) LV EF 55-60 % CONS SCIMAGE Anatomical Region Laterality Modality Ultrasound 10/21/2024 12:5 4 PM REPAIRER ART OBJECTS Narrative 10/21/2024 4:[address] [facility] Cardiology [address], [place] [address] [address], [place] [address] P:[phone] P:[phone] Echocardiographic Report Patient Name: AMBER OLIVIER K : 1945 Study Date: 10/21/2024 12:54:34 PM Gender: F Tech: Location: [place] Ref Provider: GRACIA MOORE Height(Cm): 157 BSA: 1.65 Weight(Kg): 62.1 Heart Rate: 56 BP: 114 / 60 Quality: Good Order Provider: GRACIA MOORE PROCEDURES: Echocardiographic Report: Transthoracic echocardiogram with complete 2D, M-Mode, and color Doppler examination. With Strain Analysis. INDICATIONS: CAD, HTN, Diabetes, PVC's, Palpitations. MEASUREMENTS: 2D/MM Value Range Doppler Value Range EF Mod BP 58 % [ 54 - 74 ] ANDREZ Vmax 2.32 cm2 [ 2.00 - 4.00 ] EF Teich MM 76 % [ 54 - 74 ] AV Mean PG 4 mmHg Estimated EF 55-60 % AV Peak Kan 1.45 m/s [ 1.00 - 1.70 ] LVIDd 2D 4.84 cm [ 3.80 - 5.20 ] AV Peak PG 8 mmHg LVIDd MM 5.20 cm [ 3.80 - 5.20 ] AV VTI 31.88 cm LVIDs 2D 3.16 cm [ 2.20 - 3.50 ] LVOT Diam 1.99 cm [ 1.70 - 2.10 ] LVIDs MM 2.85 cm [ 2.20 - 3.50 ] LVOT Peak Kan 1.08 m/s [ 0.70 - 1.10 ] LVPWd 2D 0.79 cm [ 0.60 - 0.90 ] LVOT VTI 21.79 cm LVPWd MM 0.88 cm [ 0.60 - 0.90 ] MV E Peak Kan 1.23 m/s [ 0.60 - 1.30 ] IVSd 2D 1.10 cm [ 0.60 - 0.90 ] MV A Peak Kan 1.03 m/s [ 1.00 - 1.20 ] IVSd MM 0.76 cm [ 0.60 - 0.90 ] MV Decel Time 279 msec [ 104 - 258 ] LA Dimension MM 3.41 cm [ 2.70 - 3.80 ] PV Peak Kan 0.81 m/s [ 0.40 - 0.80 ] AoR Diam MM 3.13 cm [ 2.70 - 3.70 ] TR Peak Kan 3.00 m/s [ 1.00 - 2.80 ] LA Volume Index 29 cc/m2 [ 16 - 34 ] TR Peak PG 36 mmHg RVSP 44.00 mmHg [ 10.00 - 36.00 ] Lateral E` 0.07 m/s [ 0.10 - 0.15 ] E` 0.05 m/s E/E` 18 2D/MM Value Range Doppler Value Range - FINDINGS: Interpretation Site: Exam was interpreted at [facility]. Left Ventricle: Normal left ventricular size. Normal left ventricular wall thickness. Normal global left ventricular systolic function. Diastolic dysfunction is present. Ejection fraction is measured at 58 %. Ejection Fraction is visually estimated to be 55-60 %. Global Longitudinal Strain is -18 %. GLS is borderline. These segments of the LV are hypokinetic: apical segment and apical septum segment. Right Ventricle: Normal right ventricular size. Normal right ventricular systolic function. Left Atrium: There is mild enlargement of left atrium. Right Atrium: The right atrium is normal in size. Atrial Septum: Normal atrial septum. Mitral Valve: Mitral valve leaflets appear mildly thickened. Moderate mitral valve regurgitation. There is no hemodynamically significant mitral stenosis by Doppler. Aortic Valve: No evidence of hemodynamically significant aortic stenosis by Doppler. Aortic cusps appear mildly sclerotic. Trileaflet aortic valve. Moderate aortic valve regurgitation. Tricuspid Valve: Normal appearance of the tricuspid valve. Mild pulmonary hypertension based on right ventricular systolic pressure. Estimated peak RVSP is 44 mmHg. Mild tricuspid regurgitation. Pulmonic Valve: Normal appearance of the pulmonic valve. No pulmonic stenosis. Mild pulmonic regurgitation. Pericardium: Normal pericardium with no significant pericardial effusion. Aorta: Normal aortic root. IVC: Normal size and normal respiratory collapse consistent with normal right atrial pressure (<5 mmHg). CONCLUSIONS: Normal left ventricular size. Normal left ventricular wall thickness. Normal global left ventricular systolic function. Diastolic dysfunction is present. Ejection fraction is measured at 58 %. Ejection Fraction is visually estimated to be 55-60 %. Global Longitudinal Strain is -18 %. GLS is borderline. These segments of the LV are hypokinetic: apical segment and apical septum segment. There is mild enlargement of left atrium. Mitral valve leaflets appear mildly thickened. Moderate mitral valve regurgitation. Aortic cusps appear mildly sclerotic. Trileaflet aortic valve. Moderate aortic valve regurgitation. Mild pulmonary hypertension based on right ventricular systolic pressure. Estimated peak RVSP is 44 mmHg. Mild tricuspid regurgitation. Mild pulmonic regurgitation. Normal sinus rhythm. Electronically Signed By: Gracia Moore MD 10/21/2024 4:55:53 PM REPAIRER ART OBJECTS Procedure Note Gracia Moore MD - 10/21/2024 [facility] Cardiology [address], [place] [address] [address] [address] P:[phone] P:[phone] Echocardiographic Report Patient Name: AMBER OLIVIER K : 1945 Study Date: 10/21/2024 12:54:34 PM Gender: F Tech: Location: [place] Ref Provider: GRACIA MOORE Height(Cm): 157 BSA: 1.65 Weight(Kg): 62.1 Heart Rate: 56 BP: 114 / 60 Quality: Good Order Provider: GRACIA MOORE PROCEDURES: Echocardiographic Report: Transthoracic echocardiogram with complete 2D, M-Mode, and color Dopplerexamination. With Strain Analysis. INDICATIONS: CAD, HTN, Diabetes, PVC's, Palpitations. MEASUREMENTS: 2D/MM Value Range Doppler ValueRange EF Mod BP 58 % [ 54 - 74 ] ANDREZ Vmax 2.32cm2 [ 2.00 - 4.00 ] EF Teich MM 76 % [ 54 - 74 ] AV Mean PG 4mmHg Estimated EF 55-60 % AV Peak Kan 1.45m/s [ 1.00 - 1.70 ] LVIDd 2D 4.84 cm [ 3.80 - 5.20 ] AV Peak PG 8mmHg LVIDd MM 5.20 cm [ 3.80 - 5.20 ] AV VTI 31.88cm LVIDs 2D 3.16 cm [ 2.20 - 3.50 ] LVOT Diam 1.99 cm[ 1.70 - 2.10 ] LVIDs MM 2.85 cm [ 2.20 - 3.50 ] LVOT Peak Kan 1.08m/s [ 0.70 - 1.10 ] LVPWd 2D 0.79 cm [ 0.60 - 0.90 ] LVOT VTI 21.79cm LVPWd MM 0.88 cm [ 0.60 - 0.90 ] MV E Peak Kan 1.23m/s [ 0.60 - 1.30 ] IVSd 2D 1.10 cm [ 0.60 - 0.90 ] MV A Peak Kan 1.03m/s [ 1.00 - 1.20 ] IVSd MM 0.76 cm [ 0.60 - 0.90 ] MV Decel Time 279msec [ 104 - 258 ] LA Dimension MM 3.41 cm [ 2.70 - 3.80 ] PV Peak Kan 0.81m/s [ 0.40 - 0.80 ] AoR Diam MM 3.13 cm [ 2.70 - 3.70 ] TR Peak Kan 3.00m/s [ 1.00 - 2.80 ] LA Volume Index 29 cc/m2 [ 16 - 34 ] TR Peak PG 36mmHg RVSP 44.00 mmHg [ 10.00 - 36.00 ] Lateral E` 0.07 m/s [ 0.10 - 0.15 ] E` 0.05 m/s E/E` 18 2D/MM Value Range Doppler ValueRange - FINDINGS: Interpretation Site: Exam was interpreted at [facility]. Left Ventricle: Normal left ventricular size. Normal left ventricular wall thickness.Normal global left ventricular systolic function. Diastolic dysfunction is present. Ejectionfraction is measured at 58 %. Ejection Fraction is visually estimated to be 55-60 %.Global Longitudinal Strain is -18 %. GLS is borderline. These segments of the LVare hypokinetic: apical segment and apical septum segment. Right Ventricle: Normal right ventricular size. Normal right ventricular systolicfunction. Left Atrium: There is mild enlargement of left atrium. Right Atrium: The right atrium is normal in size. Atrial Septum: Normal atrial septum. Mitral Valve: Mitral valve leaflets appear mildly thickened. Moderate mitral valveregurgitation. There is no hemodynamically significant mitral stenosis by Doppler. Aortic Valve: No evidence of hemodynamically significant aortic stenosis by Doppler.Aortic cusps appear mildly sclerotic. Trileaflet aortic valve. Moderate aortic valveregurgitation. Tricuspid Valve: Normal appearance of the tricuspid valve. Mild pulmonary hypertensionbased on right ventricular systolic pressure. Estimated peak RVSP is 44 mmHg. Mildtricuspid regurgitation. Pulmonic Valve: Normal appearance of the pulmonic valve. No pulmonic stenosis. Mildpulmonic regurgitation. Pericardium: Normal pericardium with no significant pericardial effusion. Aorta: Normal aortic root. IVC: Normal size and normal respiratory collapse consistent with normal rightatrial pressure (<5 mmHg). CONCLUSIONS: Normal left ventricular size. Normal left ventricular wall thickness.Normal global left ventricular systolic function. Diastolic dysfunction is present. Ejectionfraction is measured at 58 %. Ejection Fraction is visually estimated to be 55-60 %.Global Longitudinal Strain is -18 %. GLS is borderline. These segments of the LVare hypokinetic: apical segment and apical septum segment. There is mild enlargement of left atrium. Mitral valve leaflets appear mildly thickened. Moderate mitral valveregurgitation. Aortic cusps appear mildly sclerotic. Trileaflet aortic valve. Moderateaortic valve regurgitation. Mild pulmonary hypertension based on right ventricular systolic pressure.Estimated peak RVSP is 44 mmHg. Mild tricuspid regurgitation. Mild pulmonic regurgitation. Normal sinus rhythm. Electronically Signed By: Gracia Moore MD 10/21/2024 4:55:53 PM REPAIRER ART OBJECTS Gracia Moore MD CV ECHO PROCEDURES Final Result * Electrocardiogram Report (10/02/2024 3:41 PM REPAIRER ART OBJECTS) us Gracia Moore MD ECG ORDERABLES Final Res ult * MCT Mobile Cardiac Telemetry Event Monitor (10/02/2024 3:24 PM REPAIRER ART OBJECTS) Anatomical Region Laterality Modality Electrocardiogra phy Narrative 10/24/2024 3:45 PM REPAIRER ART OBJECTS AMBULATORY [employer]OES SALESPERSON REPORT Patient Name: Amber Olivier Date of : 1945 Requesting Physician: Dr. Moore Date of interpretation: 10/24/24 Type of monitor : 7 day trimming department blocker Date of the study/Enrollment period: 10/02/2024 through 10/08/2024 Indication: Premature ventricular contractions Quality of the study: Good Interpretation: A total of 6 days 5 hours and 6 minutes recorded and analyzed Sinus rhythm/sinus bradycardia with heart rate variability between 48 and 106 beats per minute with average heart rate of 65 beats per minute. No significant pauses greater than 3 seconds. Frequent supraventricular ectopy totaling 144,871 beats which is 25% ectopic burden. Low frequency ventricular ectopy totaling 1025 beats which is less than 1% ectopic burden. No atrial fibrillation. No patient triggered events. Conclusions: Sinus rhythm with average heart rate 65 beats per minute. Low frequency ventricular ectopy. Frequent supraventricular ectopy but generally in single beat form. No patient triggered events No atrial fibrillation Voice recognition software was used to complete this document, therefore, turn laster variances may occur. Gracia Moore MD, [facility] 10/24/24 Procedure Note Gracia Moore MD - 10/24/2024 AMBULATORY SHOES SALESPERSON REPORT Patient Name: Amber Olivier Date of : 1945 Requesting Physician: Dr. Moore Date of interpretation: 10/24/24 Type of monitor : 7 day trimming department blocker Date of the study/Enrollment period: 10/02/2024 through 10/08/2024 Indication: Premature ventricular contractions Quality of the study: Good Interpretation: A total of 6 days 5 hours and 6 minutes recorded andanalyzed Sinus rhythm/sinus bradycardia with heart rate variability between 48 [id number] beats per minute with average heart rate of 65 beats per minute. No significant pauses greater than 3 seconds. Frequent supraventricular ectopy totaling 144,871 beats which is 25%ectopic burden. Low frequency ventricular ectopy totaling 1025 beatswhich is less than 1% ectopic burden. No atrial fibrillation. No patient triggered events. Conclusions: Sinus rhythm with average heart rate 65 beats per minute. Low frequency ventricular ectopy. Frequent supraventricular ectopy but generally in single beat form. No patient triggered events No atrial fibrillation Voice recognition software was used to complete this document, therefore,turn laster variances may occur. Gracia Moore MD, [facility] 10/24/24 Gracia Moore MD CV CARDIAC SERVICES [facility] Final Result * Lipid panel (10/09/2023) SCRIBED Cholesterol, Total 164 <200 EXTERNAL LAB SCRIBED HDL 77 >40 EXTERNAL LAB SCRIBED LDL 70 <100 EXTERNAL LAB SCRIBED Triglycerides 91 <150 EXTERNAL LAB Blood 10/09/2023 Historical Provider LAB BLOOD ORDERABLES Saira king Result EXTERNAL LAB from Last 3 Months or Most Recently Relevant to Health Maintenance Insurance MEDICARE [facility] MEDICARE SUPPLEMENT INSURANCE SHANNON MENEN[place] [id number] [place] [address] MEDICARE [facility] MEDIC[place] [address] MEDICARE [facility] MEDICARE SUPPLEMENT INSURANCE Care Teams Utility Porter Relationship Specialty Start Date End Date Zora Chavez MD PCP - General Family Medicine 10/04/21
--- OUTSIDE RECORDS SUMMARY | 2024-11-15 17:42 | XMS_ITS | Clinical Summary ---
Author Organization [facility] [address] Address [address] [place] [address] Care Team Providers Care Char Dust Cleaner And Salvager Name Role Phone Zora Chavez MD Primary Care Provider Allergies Active Allergy Reactions Criticality Noted Date Comments Clindamycin Itching Medium Reaction: ITCHING, , , Penicillins Hives,Swelling High Reaction: HIVES, Hjuzjkm-Kzw-Mns Reductase Inhibitors Sulfa (Sulfonamide Antibiotics) Itching,Rash Medium [...] 1 tablet (88 mcg total) by mouth early childhood education instructor before breakfast Active FeroSuL 325 mg (65 [...] 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 10/15/2017 Hyperlipidemia LDL goal <70 04/09/2017 Hyperlipidemia associated with type 2 diabetes m ellitus 04/09/2017 PVC's (premature ventricular contractions) 04/09 Raynaud's syndrome without gangrene 04/09/2017 Hypertension associated with diabetes 07/29/2014 Overview (12/28/2016): Essential hypertension Atherosclerosis of coronary artery 07/29/2014 Overview (12/28/2016): Coronary atherosclerosis Encounters Date Type Department Care Team Description 10/21/2024 1:00 PM AUDIT SENIOR ASSOCIATE Ancillary Procedure [facility] Medical [facility] Cardiology [address] [facility] [address] [place] [phone] 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); Hypertension associated with diabetes (HCC); PVC's (premature ventricular contractions); Palpitations 10/02/2024 2:15 PM AUDIT SENIOR ASSOCIATE Ancillary Procedure [facility] Cardiology [address] [place] [address] [address] [place] [phone] PVC's (premature ventricular contractions); Palpitations 10/02/2024 1:30 PM AUDIT SENIOR ASSOCIATE Office Visit [facility] Cardiology [address] [place] [address] [address] [place] [phone] Gracia Moore MD 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) (Primary Dx); Hyperlipidemia associated with type 2 diabetes mellitus (HCC); Hypertension associated with diabetes (HCC); PVC's (premature ventricular contractions); Palpitations from Last 3 Months Medical History Medical History Date Comments Gastroesophageal reflux disease GERD Adiposity Obesity Hypothyroidism Hypothyroidism Hx Other Medical 1999 Hiatal Hernia Vertigo Vertigo GERD (gastroesophageal reflux disease) Family History Medical History Relation Name Comments Colon cancer Father 2 Cancer, colon; Cause of : Cancer, colon Alzheimer's disease Mother 2 Alzheime r's Disease; Cause of : Alzheimer's Disease Relation Name Status Comments Father 1 (Age 77) Father 2 Mother 1 (Age 92) Mother 2 Social History Tobacco Use Types Packs/Day Years [...] on file Legal Sex Female 10:31 AM AUDIT SENIOR ASSOCIATE Gender Identity Not on file Sexual Orientation Not on file Obstetrics History Last Filed Vital Signs Vital Sign Reading Time Taken Comments Blood Pressure 114/60 10/02/2024 1:45 PM AUDIT SENIOR ASSOCIATE Pulse 60 10/02/2024 1:45 PM AUDIT SENIOR ASSOCIATE Temperature - - Respiratory Rate 18 01/31/2023 9:09 AM CDT Oxygen Saturation 99% 10/02/2024 1:45 PM AUDIT SENIOR ASSOCIATE Inhaled Oxygen Concentration - - Weight 62.1 kg (137 lb) 10/02/2024 1:45 PM AUDIT SENIOR ASSOCIATE Height 157.5 cm (5' 2 ) 10/02/2024 1:45 PM AUDIT SENIOR ASSOCIATE Body Mass Index 25.06 10/02/2024 1:45 PM AUDIT SENIOR ASSOCIATE Plan of Treatment Health Maintenance Due Date Last Done Comments Albumin Creatinine Ratio, Urine 1945 Depression Screening 1945 Hemoglobin A1C 1945 Osteoporosis Screening-Bone Density Scan 1945 eGFR 1945 Dilated Eye Exam 1945 Foot Exam 1945 Hepatitis B Screening 12/31/1961 Zoster Vaccine (1 of 2) 12/31/1993 Well Visit 65+ 12/31/2008 DTaP/Tdap/Td Vaccine (1 - Tdap) 03/21/2016 6, 06/27/2005 Fall Risk Assessment 02/01/2024 01/31/2023 Influenza Vaccine (#1) 2024 Lipid Panel 10/09/2024 10/09/2023, 03/24, 03/24/2019, Additional history exists Pneumococcal vaccine 65+ Completed 06/03/2016, 12/23 Procedures Procedure Name Priority Date/Time Associated Diagnosis Comments TRANSTHORACIC ECHO (TTE) COMPLETE W DOPPLER/CF WO CONTRAST Routine 10/21/2024 1:30 PM AUDIT SENIOR ASSOCIATE 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) Hypertension associated with diabetes (HCC) PVC's (premature ventricular contractions) Palpitations ELECTROCARDIOGRAM REPORT Routine 025 3:41 PM AUDIT SENIOR ASSOCIATE 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) PVC's (premature ventricular contractions) Palpitations MCT - MOBILE CARDIAC TELEMETRY EVENT MONITOR Routine 10/02/2024 3:24 PM AUDIT SENIOR ASSOCIATE PVC's (premature ventricular contractions) Palpitations LIPID PANEL Routine 10/09/2023 from Last 3 Months or Most Recently Relevant to Health Maintenance Results * TRANSTHORACIC ECHO (TTE) COMPLETE W DOPPLER/CF WO CONTRAST (10/21/2024 1:30 PM AUDIT SENIOR ASSOCIATE) LV EF 55-60 % CONS SCIMAGE Anatomical Region Laterality Modality Ultrasound 10/21/2024 12:5 4 PM AUDIT SENIOR ASSOCIATE Narrative 10/21/2024 4:57 PM AUDIT SENIOR ASSOCIATE [facility] Cardiology [address], [place] [address] [address] [facility] [address], [place] [address] P:[phone] P:[phone] Echocardiographic Report Patient Name: AMBER OLIVIER K : 1945 Study Date: 10/21/2024 12:54:34 PM Gender: F Tech: Location: [place] Ref Provider: GRACIA MOORE Height(Cm): 157 BSA: [...] FINDINGS: Interpretation Site: Exam was interpreted at [facility]. Left Ventricle: Normal left ventricular size. Normal [...] By: Gracia Moore MD 10/21/2024 4:55:53 PM AUDIT SENIOR ASSOCIATE Procedure Note Gracia Moore MD - 10/21/2024 [facility]iology [address] [facility] [address], [place] [address] [address] [facility] [address], [place] [address] P:[phone] P:[phone] Echocardiographic Report Patient Name: AMBER OLIVIER K : 1945 Study Date: 10/21/2024 12:54:34 PM Gender: F Tech: Location: [facility] Provider: GRACIA MOORE Height(Cm): 157 BSA: 1.65 [...] FINDINGS: Interpretation Site: Exam was interpreted at [facility]. Left Ventricle: Normal left ventricular size. Normal [...] By: Gracia Moore MD 10/21/2024 4:55:53 PM AUDIT SENIOR ASSOCIATE Gracia Moore MD CV ECHO PROCEDURES Final Result * Electrocardiogram Report (10/02/2024 3:41 PM AUDIT SENIOR ASSOCIATE) Gracia Moore MD ECG ORDERABLES Final Res ult * MCT Mobile Cardiac Telemetry Event Monitor (10/02/2024 3:24 PM AUDIT SENIOR ASSOCIATE) Anatomical Region Laterality Modality Electrocardiogra phy Narrative 10/24/2024 3:45 PM AUDIT SENIOR ASSOCIATE AMBULATORY WEARING APPAREL PRESSER REPORT Patient Name: Amber Olivier Date of : 1945 Requesting Physician: Dr. Moore Date of interpretation: 10/24/24 Type of monitor : 7 day cardiac monitor Date of the study/Enrollment period: 10/02/2024 through [...] was used to complete this document, therefore, web content editor variances may occur. Gracia Moore MD, [facility] 10/24/24 Procedure Note Gracia Moore MD - 10/24/2024 AMBULATORY WEARING APPAREL PRESSER REPORT Patient Name: Amber Olivier Date of : 1945 Requesting Physician: Dr. Moore Date of interpretation: 10/24/24 Type of monitor : 7 day cardiac monitor Date of the study/Enrollment period: 10/02/2024 through 10/08/2024 Indication: Premature ventricular contractions Quality of the study: Good Interpretation: A total of 6 days 5 hours and 6 minutes recorded andanalyzed Sinus rhythm/sinus bradycardia with heart rate variability between 48 ped249 beats per minute with average heart rate [...] software was used to complete this document, therefore,web content editor variances may occur. Gracia Moore MD, [facility] 10/24/24 Gracia Moore MD CV CARDIAC SERVICES PROCE YASMEEN Final Result * Lipid panel (10/09/2023) SCRIBED Cholesterol, Total 164 <200 EXTERNAL LAB SCRIBED HDL 77 >40 EXTERNAL LAB SCRIBED LDL 70 <100 EXTERNAL LAB SCRIBED Triglycerides 91 <150 EXTERNAL LAB Blood 10/09/2023 Historical Provider LAB BLOOD ORDERABLES Saira king Result EXTERNAL LAB from Last 3 Months or Most Recently Relevant to Health Maintenance [place] [address] [facility] MEDICARE SUPPLEMENT INSURANCE MEDICARE [facility] MEDICARE SUPPLEMENT INSURANCE MEDICARE [facility] MEDICARE SUPPLEMENT INSURANCE Care Teams Char Dust Cleaner And Salvager Relationship Specialty Start Date End Date Zora Chavez MD PCP - General Family Medicine 10/04/21
[2024-11-15 18:18] LABS: Basophils Percent Auto 0.7 % (0.2-1.2); Eosinophils Absolute Auto 0.2 K/mm3 (0-0.3); Eosinophils Percent Auto 3.3 % (0-4.4); Hematocrit 33.4 % (37.0-47.0); Hemoglobin 10.8 g/dL (12.0-15.0); Immature Granulocyte Absolute 0.02 K/mm3 (0.00-0.031); Immature Granulocyte Percent A 0.4 % (0-0.5); Lymphocytes Absolute Auto 0.96 K/mm3 (0.9-3.2); Lymphocytes Percent Auto 17.7 % (18.3-44.2); Mean Corpuscular HGB Conc 32.3 g/dl (32-36); Mean Corpuscular Hemoglobin 32.2 pg (26-34); Mean Corpuscular Volume 99.7 fl (80-100); Mean Platelet Volume 9.2 fl (7.4-10.4); Monocytes Absolute Auto 0.4 K/mm3 (0.1-0.6); Monocytes Percent Auto 7.2 % (2.6-8.5); Neutrophils Absolute Auto 3.8 K/mm3 (1.3-6.7); Neutrophils Percent Auto 70.7 % (45.5-73.1); Platelet Count Result 235 k/mm3 (150-375); Red Blood Count 3.35 M/mm3 (4.2-5.4); Red Cell Distribution Width 13.6 % (11.5-14.5); White Blood Count 5.4 K/mm3 (4.5-10.0)
[2024-11-15 18:29] LABS: Alanine Aminotransferase 16 U/L (6-35); Albumin Level 3.9 g/dL (3.5-5.1); Alkaline Phosphatase 84 U/L (38-126); Anion Gap 10 mmol/L (4-12); Aspartate Amino Transferase 27 U/L (14-36); Bilirubin,Total 0.5 mg/dL (0.2-1.3); Blood Urea Nitrogen 13 mg/dL (7-17); Carbon Dioxide 23 mmol/L (22-30); Chloride 104 mmol/L (98-107); Estimated CRCL calculation 37 ml/min; Estimated Glomerular Filt Rate > 60; Glucose 150 mg/dL (65-110); Lipase 172 U/L (23-300); Potassium 4.1 mmol/L (3.4-5.0); Prothrombin Time 13.2 Seconds (11.1-14.7); Sodium 137 mmol/L (137-145)
[2024-11-15 18:43] LABS: Troponin I 0.701 ng/mL (0.000-0.034)
[2024-11-15] MEDS: ASPIRIN 81 MG CHEWABLE TABLET 324 MG PO (19:13)
--- NOTE | 2024-11-15 19:59 | ED_ITS ---
HPI - Chest Pain General Chief Complaint: Chest Pain Stated Complaint: CHEST PAIN SINCE 1630 Time Seen by Provider: 11/15/24 19:02 History of Present Illness HPI narrative: Patient is an 79-year-old female with history of coronary artery disease presents to the emergency department this evening complaining of chest pain which started around 3-330 p.m.. Patient does have a history of cognitive impairment and secondary to this them majority of the history of present illness and review of systems obtained from patient's daughter and has been who are currently present at bedside. Patient does see Dr. 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 Patient had a left heart catheterization performed by Dr. Wilkerson approximately 2 years ago which showed patent stents. Patient does take a daily baby aspirin. She states that although her chest pain has improved while she was waiting in the emergency department, she still does have some mild chest pain. Patient was administered a full dose aspirin upon arrival to the emergency department. Denies any recent illness, fevers or chills. Related Data Home Medications ?Medication ?Instructions ?Recorded ?Confirmed ?Last Taken ?Type losartan 25 mg tablet 25 mg PO BID 08/25/19 06/09/24 05/10/22 07:00 History metoprolol tartrate 25 mg tablet 12.5 mg PO BID 08/25/19 06/09/24 05/10/22 07:00 History blghnewiatma-Zw-slih-minerals 1 tablet PO DAILY 03/05/20 06/09/24 05/09/22 History (Multiple Vitamin, Womens tablet) Allergies Allergy/AdvReac Type Severity Reaction Status Date / Time clindamycin Allergy Unknown Rash Verified 11/15/24 17:41 Penicillins Allergy Unknown Swelling Verified 11/15/24 17:41 of Lip/Tongue/Throat Sulfa (Sulfonamide Allergy Unknown Rash Verified 11/15/24 17:41 Antibiotics) hydrocodone AdvReac Severe Vomiting Verified 11/15/24 17:41 lisinopril AdvReac Mild Cough Verified 11/15/24 17:41 Review of Systems 2 Review of Systems: All systems are reviewed and are negative unless stated otherwise in the HPI. [facility] Past Medical History Medical History Back pain Anemia Eroded bladder suspension mesh Left humeral fracture Prolapsed bladder Hypothyroidism Arthritis GERD (gastroesophageal reflux disease) Pelvic relaxation Chronic neck pain Cystocele Diabetes Blockage of coronary artery of heart Hypertension History of shingles Surgical History Surgical History H/O: hysterectomy Hx of cardiac catheterization 2011 1 STENT History of coronary artery stent placement x1 stent 2012 Family History Family History Father Carcinoma of colon, Onset Age: 77 Patient's father is Family history of malignant neoplasm of stomach Sibling Family history of malignant melanoma Acute myocardial infarction Grandparent Family history of type 2 diabetes mellitus Diabetes mellitus Family history of cardiovascular disease Cerebrovascular accident Family history of throat cancer Social History Social History Smoking status: Never smoker Second hand tobacco smoke exposure: No Alcohol intake: never Substance use: never Substance use type: does not use Lack of Transportation: No Lack of Food: Never True Current Housing: I Have Housing Concerned About Future Housing: No Difficulty Paying Gas/Electric Bills: No Difficulty Paying for Meds: No Currently Unemployed: No Education: Associate Degree Difficulty w/ Childcare or Family Care: No Living arrangements: with family Gender identity (if verbalized by the patient): Female Spiritual care concerns: No Agree to blood products: Yes Exam 2 Narrative: General: Alert, awake, afebrile, in no acute distress. HEENT: PERRL, no rhinorrhea, no post nasal drip, oropharynx clear. Neck: Trachea midline, no JVD, no lymphadenopathy. Cardiovascular: Regular rate and rhythm, no murmurs, rubs or gallops, no peripheral edema. Respiratory: Clear to auscultation bilaterally, no tachypnea, no wheezing, no rhonchi, no rubs, no respiratory distress. Abdomen: Soft, nontender, nondistended, no rebound, no guarding, no peritoneal signs. Musculoskeletal: No joint swelling or deformity, normal muscle tone. Skin: No rashes or petechia, no signs of infection. Psychiatric: Alert and oriented, normal behavior and judgment for situation. Neurological: Alert and oriented to person, place, and time. Follows all commands. No focal deficits, speech is clear and fluent. Course Vital Signs Vital signs: Vital Signs Temperature 98.2 F 11/15/24 17:52 Pulse Rate 61 11/15/24 17:52 Respiratory Rate 18 11/15/24 17:52 Blood Pressure 112/61 11/15/24 17:52 Pulse Oximetry 98 11/15/24 17:52 Oxygen Delivery Room Air 11/15/24 17:52 Temperature 97.9 F 11/15/24 19:06 Pulse Rate 75 11/15/24 19:06 Respiratory Rate 18 11/15/24 19:06 Blood Pressure 117/79 11/15/24 19:06 Pulse Oximetry 97 11/15/24 19:10 Oxygen Delivery Room Air 11/15/24 19:10 MDM - Chest Pain MDM Narrative Medical decision making narrative: The patient was evaluated by myself in the emergency department. History is obtained from patient who is an independent historian and physical exam was performed. External medical records were reviewed at this time. IV was established and pertinent tests were ordered. Patient was administered 1 L IV fluid bolus with normal saline. EKG was obtained which revealed sinus rhythm rate of 75 beats per minute with ST depressions noted in the inferior lateral leads. No ST changes, T wave inversions or evidence of acute ischemia. EKG was independently interpreted by me and is currently pending official cardiology read. Laboratory results obtained revealing an elevated troponin of 0.701 otherwise unremarkable. Imaging studies obtained included CXR which was independently interpreted by me revealing: IMPRESSION: 1. Mild pulmonary edema. 2. Small left pleural effusion. Differential diagnosis considerations include acute coronary syndrome, infectious process such as pneumonia, acute viral syndrome. Comorbidities impacting this visit include history of coronary artery disease. I have evaluated and discussed social determinants of health with the patient that could potentially impact subsequent diagnosis and treatment plans. On repeat assessment of the patient, reevaluation revealed that the patient is doing well and is in no acute distress. Patient symptoms have improved since she arrived to our emergency department. Repeat vital signs were all reviewed and noted to be stable. Differential diagnosis and treatment plan were discussed with the patient at bedside. Patient agrees with discussion and after shared medical decision making agrees with admission. All questions were answered to the patient's satisfaction. Case discussed with the on-call level vial setter Dr. Johnson at 8 regarding patient's NSTEMI and ischemic EKG changes and he agreed to evaluate the patient in the morning. Patient was started on heparin drip for her NSTEMI. Patient's HASBLED was calculated and noted to be 2 which places the patient at moderate risk of major bleeding. This was discussed with the patient and family members at bedside who understands risk and want to proceed with full medical treatment for patient's NSTEMI. Case was discussed with the on-call hospitalist Dr. Dominique at 2034 who accepted IMU admission. Critical care time of 75 minutes, exclusive of separately performed procedures, necessary for treating or preventing eminent or life-threatening deterioration of patient's condition of NSTEMI and IV heparin infusion, focused on patient care provided personally by me and time spent during initial evaluation, physical examination, ordering and performing treatments and interventions, ordering and reviewing laboratory studies, ordering and reviewing radiographic studies, re-evaluation of the patient's condition, evaluation of the patient's response to treatment, and discussion of patient case with multiple consultants. Lab Data 11/15/24 18:11 11/15/24 18:11 Labs: Lab Results 11/15/24 Range/Units 18:11 WBC 5.4 (4.5-10.0) K/mm3 RBC 3.35 L (4.2-5.4) M/mm3 Hgb 10.8 L (12.0-15.0) g/dL Hct 33.4 L (37.0-47.0) % MCV 99.7 (80-100) fl MCH 32.2 (26-34) pg MCHC 32.3 (32-36) g/dl RDW 13.6 (11.5-14.5) % Plt Count 235 (150-375) k/mm3 MPV 9.2 (7.4-10.4) fl Immature Gran % (Auto) 0.4 (0-0.5) % Neut % (Auto) 70.7 (45.5-73.1) % Lymph % (Auto) 17.7 L (18.3-44.2) % [place] % (Auto) 7.2 (2.6-8.5) % Eos % (Auto) 3.3 (0-4.4) % Baso % (Auto) 0.7 (0.2-1.2) % Lymph # (Auto) 0.96 (0.9-3.2) K/mm3 [place] # (Auto) 0.4 (0.1-0.6) K/mm3 Eos # (Auto) 0.2 (0-0.3) K/mm3 Baso # (Auto) 0.0 (0.0-0.1) K/mm3 Abs Immat Gran (auto) 0.02 (0.00-0.031) K/mm3 Absolute Neuts (auto) 3.8 (1.3-6.7) K/mm3 Absolute Nucleated RBC 0.000 (0.0-0.012) K/mm3 Nucleated RBC % 0.0 (0.0-0.2) % PT 13.2 (11.1-14.7) Seconds INR 1.0 APTT 23.0 (22.3-36.8) Seconds Sodium 137 (137-145) mmol/L Potassium 4.1 (3.4-5.0) mmol/L Chloride 104 (98-107) mmol/L Carbon Dioxide 23 (22-30) mmol/L Anion Gap 10 (4-12) mmol/L BUN 13 D (7-17) mg/dL Creatinine 0.80 (0.7-1.0) mg/dL Estim Creat Clear Calc 37 ml/min Estimated GFR > 60 (59 - ) Glucose 150 H (65-110) mg/dL Calcium 9.0 (8.4-10.2) mg/dL Total Bilirubin 0.5 (0.2-1.3) mg/dL AST 27 (14-36) U/L ALT 16 (6-35) U/L Alkaline Phosphatase 84 (38-126) U/L Troponin I 0.701 H* (0.000-0.034) ng/mL Total Protein 7.0 (6.3-8.2) g/dL Albumin 3.9 (3.5-5.1) g/dL Lipase 172 (23-300) U/L Critical Care Time Critical Care Time Total Critical Care Time: 75 (Please refer to [facility] for attestation.) Discharge Plan Discharge Clinical Impression: Chest pain, Non-STEMI (non-ST elevated myocardial infarction) Patient Disposition: Still a Patient Condition: Stable Patient Language: Greek Prescriptions: No Action ferrous sulfate 325 mg (65 mg iron) tablet 325 mg PO DAILY Qty: 1 0RF losartan 25 mg tablet 25 mg PO BID metoprolol tartrate 25 mg tablet 12.5 mg PO BID (DME) OneTouch Ultra Test Strip See Rx Instructions .Route Qty: 100 3RF Rx Instructions: use As directed daily to check glucose Multiple Vitamin, Womens Tablet 1 tablet PO DAILY (DME) lancets [Accu-Chek Fastclix Lancet Drum] Misc See Rx Instructions .Route Qty: 100 2RF Rx Instructions: use As directed daily to check glucose levothyroxine 88 mcg tablet See Rx Instructions .ROUTE .COMPLEX Qty: 90 2RF Dose Instruction: Take 1 tablet by mouth once daily Rx Instructions: Take 1 tablet by mouth once daily triamcinolone acetonide 0.1 % ointment 1 applic topical BID PRN (Reason: external vaginal irritation) Qty: 30 0RF metformin 500 mg tablet extended release 24 hr 500 mg PO DAILY Qty: 90 1RF Follow-up/Referrals: Zora Chavez MD [Primary Care Provider] -
--- OUTSIDE RECORDS SUMMARY | 2024-11-15 20:15 | XMS_ITS | Referral Summary ---
Author Organization [place] [address] [place] [phone] Care Team Providers Care Cylinder Batcher Name Role Phone Zora Chavez MD Primary Care Provider [phone] Encounters Date Type Department Care Team Description 10/21/2024 1:00 PM CAKE WINDER Ancillary Procedure [facility] Medical [facility] Cardiology [address] [place] [address] [place] [phone] Coronary artery disease of [place] artery of [place] heart with stable angina pectoris (HCC); Hypertension associated with diabetes (HCC); PVC's (premature ventricular contractions); Palpitations 10/02/2024 2:15 PM CAKE WINDER Ancillary Procedure [facility] Cardiology [address] [place] [phone] PVC's (premature ventricular contractions); Palpitations 10/02/2024 1:30 PM CAKE WINDER Office Visit [facility] Cardiology [address] [place] [address] [place] [phone] Gracia Moore MD Coronary artery disease of [place] artery of [place] heart with stable angina pectoris (HCC) (Primary Dx); Hyperlipidemia associated with type 2 diabetes mellitus (HCC); Hypertension associated with diabetes (HCC); PVC's (premature ventricular contractions); Palpitations from Last 3 Months Allergies Active Allergy Reactions Criticality Noted Date Comments Clindamycin Itching Medium Reaction: ITCHING, , , Penicillins Hives,Swelling High Reaction: HIVES, Zhqrpwp-Hxq-Tfv Reductase Inhibitors Sulfa (Sulfonamide Antibiotics) Itching,Rash Medium [...] 1 tablet (88 mcg total) by mouth mica plate layer hand before breakfast Active FeroSuL 325 mg (65 [...] artery disease of n ative artery of [place] heart with stable angina pectoris 10/15/2017 Hyperlipidemia [...] on file Legal Sex Female 10:31 AM CAKE WINDER Gender Identity Not on file Sexual Orientation Not on file Last Filed Vital Signs Vital Sign Reading Time Taken Comments Blood Pressure 114/60 10/02/2024 1:45 PM CAKE WINDER Pulse 60 10/02/2024 1:45 PM CAKE WINDER Temperature - - Respiratory Rate 18 01/31/2023 9:09 AM CDT Oxygen Saturation 99% 10/02/2024 1:45 PM CAKE WINDER Inhaled Oxygen Concentration - - Weight 62.1 kg (137 lb) 10/02/2024 1:45 PM CAKE WINDER Height 157.5 cm (5' 2 ) 10/02/2024 1:45 PM CAKE WINDER Body Mass Index 25.06 10/02/2024 1:45 PM CAKE WINDER Plan of Treatment Not on file Procedures Procedure Name Priority Date/Time Associated Diagnosis Comments TRANSTHORACIC ECHO (TTE) COMPLETE W DOPPLER/CF WO CONTRAST Routine 10/21/2024 1:30 PM CAKE WINDER Coronary artery disease of [place] artery of [place] heart with stable angina pectoris (HCC) Hypertension associated with diabetes (HCC) PVC's (premature ventricular contractions) Palpitations ELECTROCARDIOGRAM REPORT Routine 025 3:41 PM CAKE WINDER Coronary artery disease of [place] artery of [place] heart with stable angina pectoris (HCC) PVC's (premature ventricular contractions) Palpitations MCT - MOBILE CARDIAC TELEMETRY EVENT MONITOR Routine 10/02/2024 3:24 PM CAKE WINDER PVC's (premature ventricular contractions) Palpitations LIPID PANEL Routine 10/09/2023 from Last 3 Months or Most Recently Relevant to Health Maintenance Results * TRANSTHORACIC ECHO (TTE) COMPLETE W DOPPLER/CF WO CONTRAST (10/21/2024 1:30 PM CAKE WINDER) LV EF 55-60 % CONS SCIMAGE Anatomical Region Laterality Modality Ultrasound 10/21/2024 12:5 4 PM CAKE WINDER Narrative 10/21/2024 4:57 PM CAKE WINDER [facility] Medical [facility] Cardiology [address] [facility] [address], [place] [address] [address] [facility] [address], [place] [address] P:[phone] P:[phone] Echocardiographic Report Patient Name: AMBER OLIVIER K : 1945 Study Date: 10/21/2024 12:54:34 PM Gender: F Tech: Location: OR Ref Provider: GRACIA MOORE Height(Cm): 157 BSA: [...] Site: Exam was interpreted at [facility]. Left Ventricle: Normal left ventricular size. [...] By: Gracia Moore MD 10/21/2024 4:55:53 PM CAKE WINDER Procedure Note Gracia Moore MD - 10/21/2024 [facility] Medical Group Cardiology [address] [facility] [address], [place] [address] [address] [facility] [address], [place] [address] P:[phone] P:[phone] Echocardiographic Report Patient Name: AMBER OLIVIER K : 1945 Study Date: 10/21/2024 12:54:34 PM Gender: F Tech: Location: [place] Ref Provider: GRACIA MOORE Height(Cm): 157 BSA: [...] Site: Exam was interpreted at [facility]. Left Ventricle: Normal left ventricular size. [...] By: Gracia Moore MD 10/21/2024 4:55:53 PM CAKE WINDER Gracia Moore MD CV ECHO PROCEDURES Final Result * Electrocardiogram Report (10/02/2024 3:41 PM CAKE WINDER) us Gracia Moore MD ECG ORDERABLES Final Res ult * MCT Mobile Cardiac Telemetry Event Monitor (10/02/2024 3:24 PM CAKE WINDER) Anatomical Region Laterality Modality Electrocardiogra phy Narrative 10/24/2024 3:45 PM CAKE WINDER AMBULATORY TALENT REP REPORT Patient Name: Amber Oilvier Date of : 1945 Requesting Physician: Dr. Moore Date of interpretation: 10/24/24 Type of monitor : 7 day threat monitoring analyst Date of the study/Enrollment period: 10/02/2024 through [...] was used to complete this document, therefore, quarryman variances may occur. Gracia Moore MD, [facility] 10/24/24 Procedure Note Gracia Moore MD - 10/24/2024 AMBULATORY TALENT REP REPORT Patient Name: Amber Olivier Date of : 1945 Requesting Physician: Dr. Moore Date of interpretation: 10/24/24 Type of monitor : 7 day threat monitoring analyst Date of the study/Enrollment period: 10/02/2024 through 10/08/2024 Indication: Premature ventricular contractions Quality of the study: Good Interpretation: A total of 6 days 5 hours and 6 minutes recorded andanalyzed Sinus rhythm/sinus bradycardia with heart rate variability between 48 mah993 beats per minute with average heart rate [...] software was used to complete this document, therefore,quarryman variances may occur. Gracia Moore MD, [facility] 10/24/24 Gracia Moore MD CV CARDIAC SERVICES [facility] Final Result * Lipid panel (10/09/2023) SCRIBED Cholesterol, Total 164 <200 EXTERNAL LAB SCRIBED HDL 77 >40 EXTERNAL LAB SCRIBED LDL 70 <100 EXTERNAL LAB SCRIBED Triglycerides 91 <150 EXTERNAL LAB Blood 10/09/2023 Historical Provider LAB BLOOD ORDERABLES Saira king Result EXTERNAL LAB from Last 3 Months or Most Recently Relevant to Health Maintenance Insurance MEDICARE [facility] MEDICARE SUPPLEMENT INSURANCE SHANNON [address]ENENDEZ [id number] [place] [address] MEDICARE [facility] [place] [address] MEDICARE [facility] MEDICARE SUPPLEMENT INSURANCE Care Teams Cylinder Batcher Relationship Specialty Start Date End Date Zora Chavez MD PCP - General Family Medicine 10/04/21
--- OUTSIDE RECORDS SUMMARY | 2024-11-15 20:15 | XMS_ITS | Clinical Summary ---
Author Organization [facility] [address] Address [address] [place] [address] Care Team Providers Care Order Takers Supervisor Name Role Phone Zora Chavez MD Primary Care Provider [phone] Allergies Active Allergy Reactions Criticality Noted Date Comments Clindamycin Itching Medium Reaction: ITCHING, , , Penicillins Hives,Swelling High Reaction: HIVES, Kibflwc-Txh-Clo Reductase Inhibitors Sulfa (Sulfonamide Antibiotics) Itching,Rash Medium [...] (88 mcg total) by mouth early childhood specialist before breakfast Active FeroSuL 325 mg (65 [...] artery disease of n ative artery of [place] heart with stable angina pectoris 10/15/2017 Hyperlipidemia LDL goal <70 04/09/2017 Hyperlipidemia associated with type 2 diabetes m ellitus 04/09/2017 PVC's (premature ventricular contractions) 04/09 Raynaud's syndrome without gangrene 04/09/2017 Hypertension associated with diabetes 07/29/2014 Overview (12/28/2016): Essential hypertension Atherosclerosis of coronary artery 07/29/2014 Overview (12/28/2016): Coronary atherosclerosis Encounters Date Type Department Care Team Description 10/21/2024 1:00 PM SLASHER SAWYER Ancillary Procedure [facility] Medical [facility] Cardiology [address] [facility] [address] [place] [phone] Coronary artery disease of [place] artery of [place] heart with stable angina pectoris (HCC); Hypertension associated with diabetes (HCC); PVC's (premature ventricular contractions); Palpitations 10/02/2024 2:15 PM SLASHER SAWYER Ancillary Procedure [facility] Cardiology [address] [place] [address] [address] [place] [phone] PVC's (premature ventricular contractions); Palpitations 10/02/2024 1:30 PM SLASHER SAWYER Office Visit [facility] Cardiology [address] [place] [address] [address] [place] [phone] Gracia Moore MD Coronary artery disease of [place] artery of [place] heart with stable angina pectoris (HCC) (Primary [...] on file Legal Sex Female 10:31 AM SLASHER SAWYER Gender Identity Not on file Sexual Orientation Not on file Obstetrics History Last Filed Vital Signs Vital Sign Reading Time Taken Comments Blood Pressure 114/60 10/02/2024 1:45 PM SLASHER SAWYER Pulse 60 10/02/2024 1:45 PM SLASHER SAWYER Temperature - - Respiratory Rate 18 01/31/2023 9:09 AM CDT Oxygen Saturation 99% 10/02/2024 1:45 PM SLASHER SAWYER Inhaled Oxygen Concentration - - Weight 62.1 kg (137 lb) 10/02/2024 1:45 PM SLASHER SAWYER Height 157.5 cm (5' 2 ) 10/02/2024 1:45 PM SLASHER SAWYER Body Mass Index 25.06 10/02/2024 1:45 PM SLASHER SAWYER Plan of Treatment Health Maintenance Due Date [...] DOPPLER/CF WO CONTRAST Routine 10/21/2024 1:30 PM SLASHER SAWYER Coronary artery disease of [place] artery of [place] heart with stable angina pectoris (HCC) Hypertension associated with diabetes (HCC) PVC's (premature ventricular contractions) Palpitations ELECTROCARDIOGRAM REPORT Routine 025 3:41 PM SLASHER SAWYER Coronary artery disease of [place] artery of [place] heart with stable angina pectoris (HCC) PVC's (premature ventricular contractions) Palpitations MCT - MOBILE CARDIAC TELEMETRY EVENT MONITOR Routine 10/02/2024 3:24 PM SLASHER SAWYER PVC's (premature ventricular contractions) Palpitations LIPID PANEL Routine 10/09/2023 from Last 3 Months or Most Recently Relevant to Health Maintenance Results * TRANSTHORACIC ECHO (TTE) COMPLETE W DOPPLER/CF WO CONTRAST (10/21/2024 1:30 PM SLASHER SAWYER) LV EF 55-60 % CONS SCIMAGE Anatomical Region Laterality Modality Ultrasound 10/21/2024 12:5 4 PM SLASHER SAWYER Narrative 10/21/2024 4:57 PM SLASHER SAWYER [facility] Medical Group Cardiology [address], [place] [address] [address] [facility] [address], [place] [address] P:[phone] P:[phone] Echocardiographic Report Patient Name: AMBER OLIVIER K : 1945 Study Date: 10/21/2024 12:54:34 PM Gender: F Tech: Location: [place] Ref Provider: GRACIA MOORE Height(Cm): 157 BSA: [...] FINDINGS: Interpretation Site: Exam was interpreted at [facility]. Left Ventricle: Normal left ventricular size. [...] By: Gracia Moore MD 10/21/2024 4:55:53 PM SLASHER SAWYER Procedure Note Gracia Moore MD - 10/21/2024 [facility] Medical Group Cardiology [address] [facility] [address] [address] [address] [facility] [address], [place] [address] P:[phone] P:[phone] Echocardiographic Report Patient Name: AMBER OLIVIRE K : 1945 Study Date: 10/21/2024 12:54:34 PM Gender: F Tech: Location: [facility] Provider: GRACIA MOORE Height(Cm): 157 BSA: 1.65 Weight(Kg): 62.1 Heart Rate: 56 BP: 114 / 60 Quality: Good Order Provider: GRACIA MOORE PROCEDURES: Echocardiographic Report: Transthoracic echocardiogram with complete 2D, M-Mode, and color Dopplerexamination. With Strain Analysis. INDICATIONS: CAD, HTN, Diabetes, PVC's, Palpitations. MEASUREMENTS: 2D/MM Value Range Doppler ValueRange EF Mod BP 58 % [ 54 - 74 ] ANDRZE Vmax 2.32cm2 [ 2.00 - 4.00 ] [...] FINDINGS: Interpretation Site: Exam was interpreted at [facility]. Left Ventricle: Normal left ventricular size. [...] By: Gracia Moore MD 10/21/2024 4:55:53 PM SLASHER SAWYER Gracia Moore MD CV ECHO PROCEDURES Final Result * Electrocardiogram Report (10/02/2024 3:41 PM SLASHER SAWYER) Gracia Moore MD ECG ORDERABLES Final Res ult * MCT Mobile Cardiac Telemetry Event Monitor (10/02/2024 3:24 PM SLASHER SAWYER) Anatomical Region Laterality Modality Electrocardiogra phy Narrative 10/24/2024 3:45 PM SLASHER SAWYER AMBULATORY VEGETABLE BUNCHER REPORT Patient Name: Amber Olivier Date of : 1945 Requesting Physician: Dr. Moore Date of interpretation: 10/24/24 Type of monitor : 7 day condenser tube tender Date of the study/Enrollment period: 10/02/2024 through [...] was used to complete this document, therefore, folder and notcher variances may occur. Gracia Moore MD, [facility] 10/24/24 Procedure Note Gracia Moore MD - 10/24/2024 AMBULATORY VEGETABLE BUNCHER REPORT Patient Name: Amber Olivier Date of : 1945 Requesting Physician: Dr. Moore Date of interpretation: 10/24/24 Type of monitor : 7 day condenser tube tender Date of the study/Enrollment period: 10/02/2024 through 10/08/2024 Indication: Premature ventricular contractions Quality of the study: Good Interpretation: A total of 6 days 5 hours and 6 minutes recorded andanalyzed Sinus rhythm/sinus bradycardia with heart rate variability between 48 plu266 beats per minute with average heart rate [...] software was used to complete this document, therefore,folder and notcher variances may occur. Gracia Moore MD, [facility] 10/24/24 Gracia Moore MD CV CARDIAC [...] Recently Relevant to Health Maintenance [place] [address] [facility] MEDICARE SUPPLEMENT INSURANCE MEDICARE [facility] MEDICARE SUPPLEMENT INSURANCE MEDICARE [facility] MEDICARE SUPPLEMENT INSURANCE Care Teams Order Takers Supervisor Relationship Specialty Start Date End Date Zora Chavez MD PCP - General Family Medicine 10/04/21
[2024-11-15] MEDS: SODIUM CHLORIDE 0.9% IV 1,000 ML 999 ML IV CONT (21:10)
[2024-11-15] MEDS: HEPARIN SODIUM 5,000 UNITS/ML VIAL 3000 UNITS IV PUSH (21:11)
[2024-11-15] MEDS: HEPARIN SOD/D5W 100 UNITS/ML 25,000 UNITS/250 ML BAG 6 UNITS IV CONT (21:17)
[2024-11-15 21:36] LABS: Troponin I 0.919 ng/mL (0.000-0.034)
--- NOTE | 2024-11-15 23:03 | P.HP_ITS ---
H&P: HPI History of Present Illness Date/Time: 11/15/24 23:03 Chief Complaint: Chest pain Narrative: 79-year-old female with a past medical history of coronary artery disease with prior LAD stent 2011, moderate to severe dementia, hiatal hernia, GERD, hypothyroidism and diabetes among other comorbidities who presented to the ER in the company of her and daughter due to reported chest pain. The patient and her were at the [employer] playing the slots whenever the patient complained of chest pain. She indicates that her chest pain was substernal in nature and was pretty bad. The patient's daughter provides the majority of the history is patient has dementia that has progressed to the point that she at times cannot remember her or daughter's name. At the time my evaluation the patient actually denied having chest pain. But evidently well nursing staff had been placing an IV just prior to my evaluation the patient had reported recurrent chest pain and had become diaphoretic. The ER provider at place patient on a nitro drip at that time. Patient had already been started on heparin drip due to an elevated troponin. Patient is on 81 mg aspirin daily. Patient's blood pressures were stable in the ER. Initial troponin was 0.701 and EKG demonstrated some minimal ST depression with sinus arrhythmia. Chest pain is not reproducible to palpation. On review of the patient's chart appears the patient had a cardiac catheterization April 2022 that demonstrated patency of her LAD stent and 50- 60% ostial stenosis off of the diagonal branch. Sources of information include patient and family report, review of past medical records, and ER physician report. Review of Systems 2 Review of Systems: Review of systems limited due to patient's history of dementia. Patient has chronic urinary incontinence. Family reports normal recent bowel movements without hematochezia or melena. [facility]LY [facility] Past Medical History Medical History (Updated 11/16/24 @ 06:31 by Brittni Dominique DO) Raynaud's disease without gangrene Diastolic dysfunction Noted on echocardiogram September 2018 EF 60 65% grade 1 diastolic dysfunction mild left atrial enlargement mild mitral and aortic insufficiency mild tricuspid and pulmonic insufficiency myocardial perfusion study in 2018 was normal, myocardial perfusion imaging September 2020 normal Vertigo Hiatal hernia Dementia Coronary artery disease LAD Primary hypertension Back pain Anemia Left humeral fracture Hypothyroidism Arthritis GERD (gastroesophageal reflux disease) Chronic neck pain Diabetes History of shingles Surgical History Surgical History (Updated 11/15/24 @ 21:01 by Brittni Dominique DO) History of total abdominal hysterectomy and bilateral salpingo-oophorectomy (03/15/20) Supracervical History of sacrocolpopexy (03/15/20) With erosion of mesh History of coronary artery stent placement (05/2012) LAD stent 2011 with repeat cardiac catheterization Family History Family History Father Carcinoma of colon, Onset Age: 77 Patient's father is Family history of malignant neoplasm of stomach Sibling Family history of malignant melanoma Acute myocardial infarction Grandparent Family history of type 2 diabetes mellitus Diabetes mellitus Family history of cardiovascular disease Cerebrovascular accident Family history of throat cancer Social History Social History (Updated 11/16/24 @ 06:24 by Brittni Dominiuqe DO) Social History: Patient lives with her of around 35 years. She is a lifelong nonsmoker. She used to occasionally drink alcohol but does not do so anymore. She had 3 biologic children and several step children. Code status: Full code Healthcare power of litigation attorney: Christina Huynh (daughter) Smoking status: Never smoker Second hand tobacco smoke exposure: No Alcohol intake: never Substance use: never Substance use type: does not use Do You Feel Safe in your Home?: Yes Lack of Transportation: No Lack of Food: Never True Current Housing: I Have Housing Concerned About Future Housing: No Difficulty Paying Gas/Electric Bills: No Difficulty Paying for Meds: No Currently Unemployed: No Education: Associate Degree Difficulty w/ Childcare or Family Care: No Living arrangements: with family Gender identity (if verbalized by the patient): Female Spiritual care concerns: No Agree to blood products: Yes Meds Home Medications and Allergies Home Medications ?Medication ?Instructions ?Recorded ?Confirmed ?Type losartan 25 mg tablet 25 mg PO BID 08/25/19 11/16/24 History metoprolol tartrate 25 mg tablet 12.5 mg PO BID 08/25/19 11/16/24 History lggyfscxxogj-Ys-vxbh-minerals 1 tablet PO DAILY 03/05/20 11/16/24 History (Multiple Vitamin, Womens tablet) lancets (Accu-Chek Fastclix Lancet #100 ea 10/04/21 11/16/24 Rx Drum) blood sugar diagnostic (OneTouch #100 ea 04/12/22 11/16/24 Rx Ultra Test strips) ferrous sulfate 325 mg (65 mg 325 mg PO DAILY #1 tablet 02/14/24 11/16/24 Rx iron) tablet metformin 500 mg tablet,extended 500 mg PO DAILY #90 tabs 05/25/24 11/16/24 Rx release 24 hr aspirin 81 mg chewable tablet 81 mg PO DAILY 11/16/24 11/16/24 History (Maxime Chewable Low Dose Aspirin) docusate sodium 100 mg capsule 100 mg PO DAILY PRN constipation 11/16/24 11/16/24 History (Colace) levothyroxine 88 mcg tablet See Rx Instructions .Route .COMPLEX 11/16/24 11/16/24 History Allergies Allergy/AdvReac Type Severity Reaction Status Date / Time clindamycin Allergy Unknown Rash Verified 11/16/24 02:13 Penicillins Allergy Unknown Swelling Verified 11/16/24 02:13 of Lip/Tongue/Throat Sulfa (Sulfonamide Allergy Unknown Rash Verified 11/16/24 02:13 Antibiotics) hydrocodone AdvReac Severe Vomiting Verified 11/16/24 02:13 lisinopril AdvReac Mild Cough Verified 11/16/24 02:13 statins AdvReac Unknown Uncoded 11/16/24 02:13 Vital Signs Vital Signs - 24 hr 11/15/24 17:52 11/15/24 18:56 11/15/24 19:06 Temperature 98.2 F 97.9 F Pulse Rate 61 97 75 Respiratory Rate 18 24 H 18 Blood Pressure 112/61 117/79 117/79 Pulse Oximetry 98 100 98 Oxygen Delivery Room Air Room Air 11/15/24 19:09 11/15/24 19:10 11/15/24 19:15 Temperature Pulse Rate 77 80 Respiratory Rate 21 H 19 Blood Pressure Pulse Oximetry 98 97 96 Oxygen Delivery Room Air 11/15/24 19:31 11/15/24 19:32 11/15/24 19:49 Temperature Pulse Rate 75 75 71 Respiratory Rate 19 21 H 18 Blood Pressure 105/58 L Pulse Oximetry 96 99 97 Oxygen Delivery 11/15/24 20:18 11/15/24 20:36 11/15/24 20:45 Temperature Pulse Rate 118 H 74 68 Respiratory Rate 20 18 19 Blood Pressure Pulse Oximetry 100 98 Oxygen Delivery 11/15/24 20:46 Temperature Pulse Rate 68 Respiratory Rate 22 H Blood Pressure 100/59 L Pulse Oximetry 98 Oxygen Delivery Exam 2 Narrative: Weight 65.4 kg BMI 26.4 Const: Other: Well-developed, well-nourished, elderly, sitting up in bed head of bed at 45? HENMT: Other: Head is normocephalic atraumatic, mucous membranes are tacky, no oral pharyngeal erythema, fair dentition Eyes: Other: Pupils are equal and reactive, no scleral icterus, positive conjunctival pallor Neck: Other: No lymphadenopathy, trachea midline Chest: Other: Nontender to palpation Resp: Other: Clear to auscultation bilaterally, no increased work of breathing Cardio: Other: Regular rate, regular rhythm, 2+ bilateral radial pedal pulses GI: Other: Soft, nontender, nondistended, positive bowel sounds Skin: Other: Positive pallor, non jaundice Neuro: Other: Patient is alert oriented to person only, she cannot even give me a gas as to the month or year, she giggles whenever it is asked where she is at, she has difficulty recalling her daughter and 's name who are at bedside, she has no gross motor deficits noted although exam limited Extrem: Other: No clubbing, cyanosis or edema, moves all extremities equally, 5/5 carpenter apprentice strength bilateral Psych: Other: Inappropriate giggling, otherwise pleasant and cooperative, confused, poor judgment and insight H&P: Results Labs Labs: Laboratory Tests 11/15/24 18:11 11/15/24 18:11 11/15/24 11/15/24 18:11 20:54 WBC 5.4 RBC 3.35 L Hgb 10.8 L Hct 33.4 L MCV 99.7 MCH 32.2 MCHC 32.3 RDW 13.6 Plt Count 235 MPV 9.2 Immature Gran % (Auto) 0.4 Neut % (Auto) 70.7 Lymph % (Auto) 17.7 L [place] % (Auto) 7.2 Eos % (Auto) 3.3 Baso % (Auto) 0.7 Lymph # (Auto) 0.96 [place] # (Auto) 0.4 Eos # (Auto) 0.2 Baso # (Auto) 0.0 Abs Immat Gran (auto) 0.02 Absolute Neuts (auto) 3.8 Absolute Nucleated RBC 0.000 Nucleated RBC % 0.0 PT 13.2 INR 1.0 APTT 23.0 Sodium 137 Potassium 4.1 Chloride 104 Carbon Dioxide 23 Anion Gap 10 BUN 13 D Creatinine 0.80 Estim Creat Clear Calc 37 Estimated GFR > 60 Glucose 150 H Calcium 9.0 Total Bilirubin 0.5 AST 27 ALT 16 Alkaline Phosphatase 84 Troponin I 0.701 H* 0.919 H* D Total Protein 7.0 Albumin 3.9 Lipase 172 Impressions Chest X-Ray 11/15/24 18:24 IMPRESSION: 1. Mild pulmonary edema. 2. Small left pleural effusion. ekg: Sinus rhythm with sinus arrhythmia short [place] interval minimal ST depression lateral leads QTC 408 rate 75 cardiology interpretation pending Assessment and Plan Assessment and plan (1) Non-STEMI (non-ST elevated myocardial infarction): Code(s): I21.4 - Non-ST elevation (NSTEMI) myocardial infarction Status: Acute (2) Chest pain: Qualifiers: Chest pain type: chest pain due to myocardial ischemia Ischemic chest pain type: stable angina pectoris Qualified Code(s): I20.89 - Other forms of angina pectoris Code(s): R07.9 - Chest pain, unspecified Status: Acute (3) Type 2 diabetes mellitus with hyperglycemia: Qualifiers: Diabetes mellitus senior care insulin use: without termite control servicer use Q ualified Code(s): E11.65 - Type 2 diabetes mellitus with hyperglycemia Code(s): E11.65 - Type 2 diabetes mellitus with hyperglycemia Status: Acute (4) GERD (gastroesophageal reflux disease): Qualifiers: Esophagitis presence: esophagitis presence not specified Qualified Code(s): K21.9 - Gastro-esophageal reflux disease without esophagitis Code(s): K21.9 - Gastro-esophageal reflux disease without esophagitis Status: Acute (5) Dementia: Qualifiers: Dementia type: Alzheimer's Alzheimer's disease onset: late onset D ementia severity: moderate Dementia behavioral or psychological symptom: w ithout behavioral, psychotic, or mood disturbance or anxiety Qualified Code(s): G30.1 - Alzheimer's disease with late onset; F02.B0 - Dementia in other diseases classified elsewhere, moderate, without behavioral disturbance, psychotic disturbance, mood disturbance, and anxiety Code(s): F03.90 - Unspecified dementia, unspecified severity, without behavioral disturbance, psychotic disturbance, mood disturbance, and anxiety Status: Acute Plan The patient and chest pain with troponin elevation consistent with non STEMI. Patient reportedly had recurrence of chest pain in the ER but but time she arrived to the IMU she did not have recurrent chest pain. The patient had been started on nitroglycerin IV in the ER but this was discontinued shortly after arrival to the ICU as she had no recurrence of chest pain. She has been started on heparin drip. Will continue to trend troponins. Will continue home aspirin therapy. Patient did receive a full-dose aspirin on arrival to the ER. If chest pain recurs will place patient on transdermal nitroglycerin. Will resume the patient's home metoprolol and losartan. Cardiology has been consulted. The patient is NPO until evaluated by Cardiology. However given no recurrence of chest pain acute cardiac intervention less likely. Will check fasting lipid panel. The remainder the patient's home medications have been reviewed and reconciled as appropriate. Will hold patient's home metformin and will place on low-dose sliding scale insulin with Accu-Cheks a.c. HS with hypoglycemia protocol as needed. The patient does have a history of GERD difficult to obtain any further details the patient's chest pain. Given lack of occurrence around time of consumption of food GI cause less likely. The patient's case was discussed with the patient's , Cassius, and patient's daughter/POA, Christina, who were at bedside. Plan care discussed and all questions were answered.
[2024-11-15] MEDS: NITROGLYCERIN/D5W 200 MCG/ML 50 MG/250 ML BTL IV CONT (23:16)
--- OUTSIDE RECORDS SUMMARY | 2024-11-15 23:56 | XMS_ITS | Clinical Summary ---
Author Organization [facility] [address] Address [address] [place] [address] Care Team Providers Care Policy Loan Calculator Name Role Phone Zora Chavez MD Primary Care Provider [phone] Allergies Active Allergy Reactions Criticality Noted Date Comments Clindamycin Itching Medium Reaction: ITCHING, , , Penicillins Hives,Swelling High Reaction: HIVES, Aupphni-Rom-Frs Reductase Inhibitors Sulfa (Sulfonamide Antibiotics) Itching,Rash Medium [...] 1 tablet (88 mcg total) by mouth front desk associate before breakfast Active FeroSuL 325 mg (65 [...] artery disease of n ative artery of [place] heart with stable angina pectoris 10/15/2017 Hyperlipidemia LDL goal <70 04/09/2017 Hyperlipidemia associated with type 2 diabetes m ellitus 04/09/2017 PVC's (premature ventricular contractions) 04/09 Raynaud's syndrome without gangrene 04/09/2017 Hypertension associated with diabetes 07/29/2014 Overview (12/28/2016): Essential hypertension Atherosclerosis of coronary artery 07/29/2014 Overview (12/28/2016): Coronary atherosclerosis Encounters Date Type Department Care Team Description 10/21/2024 1:00 PM TRANSFORMER BUILDER Ancillary Procedure [facility] Cardiology [address] [facility] [address] [place] [phone] Coronary artery disease of [place] artery of [place] heart with stable angina pectoris (HCC); Hypertension associated with diabetes (HCC); PVC's (premature ventricular contractions); Palpitations 10/02/2024 2:15 PM TRANSFORMER BUILDER Ancillary Procedure [facility] Cardiology [address] [place] [address] [address] [place] [phone] PVC's (premature ventricular contractions); Palpitations 10/02/2024 1:30 PM TRANSFORMER BUILDER Office Visit [facility] Cardiology [address] [place] [address] [address] [place] [phone] Gracia Moore MD Coronary artery disease of [place] artery of [place] heart with stable angina pectoris (HCC) (Primary [...] on file Legal Sex Female 10:31 AM TRANSFORMER BUILDER Gender Identity Not on file Sexual Orientation Not on file Obstetrics History Last Filed Vital Signs Vital Sign Reading Time Taken Comments Blood Pressure 114/60 10/02/2024 1:45 PM TRANSFORMER BUILDER Pulse 60 10/02/2024 1:45 PM TRANSFORMER BUILDER Temperature - - Respiratory Rate 18 01/31/2023 9:09 AM CDT Oxygen Saturation 99% 10/02/2024 1:45 PM TRANSFORMER BUILDER Inhaled Oxygen Concentration - - Weight 62.1 kg (137 lb) 10/02/2024 1:45 PM TRANSFORMER BUILDER Height 157.5 cm (5' 2 ) 10/02/2024 1:45 PM TRANSFORMER BUILDER Body Mass Index 25.06 10/02/2024 1:45 PM TRANSFORMER BUILDER Plan of Treatment Health Maintenance Due Date [...] DOPPLER/CF WO CONTRAST Routine 10/21/2024 1:30 PM TRANSFORMER BUILDER Coronary artery disease of [place] artery of [place] heart with stable angina pectoris (HCC) Hypertension associated with diabetes (HCC) PVC's (premature ventricular contractions) Palpitations ELECTROCARDIOGRAM REPORT Routine 025 3:41 PM TRANSFORMER BUILDER Coronary artery disease of [place] artery of [place] heart with stable angina pectoris (HCC) PVC's (premature ventricular contractions) Palpitations MCT - MOBILE CARDIAC TELEMETRY EVENT MONITOR Routine 10/02/2024 3:24 PM TRANSFORMER BUILDER PVC's (premature ventricular contractions) Palpitations LIPID PANEL Routine 10/09/2023 from Last 3 Months or Most Recently Relevant to Health Maintenance Results * TRANSTHORACIC ECHO (TTE) COMPLETE W DOPPLER/CF WO CONTRAST (10/21/2024 1:30 PM TRANSFORMER BUILDER) LV EF 55-60 % CONS SCIMAGE Anatomical Region Laterality Modality Ultrasound 10/21/2024 12:5 4 PM TRANSFORMER BUILDER Narrative 10/21/2024 4:57 PM TRANSFORMER BUILDER [facility] Cardiology [address], [place] [address] [address] [facility] [address], [place] [address] P:[phone] P:[phone] Echocardiographic Report Patient Name: AMBER OLIVIER K : 1945 Study Date: 10/21/2024 12:54:34 PM Gender: F Tech: Location: [place] Ref Provider: GRACIA MOORE Height(Cm): 157 BSA: [...] FINDINGS: Interpretation Site: Exam was interpreted at [facility]. Left Ventricle: Normal left ventricular size. [...] By: Gracia Moore MD 10/21/2024 4:55:53 PM TRANSFORMER BUILDER Procedure Note Gracia Moore MD - 10/21/2024 [facility] [address] [facility] [address], [place] [address] [address] [facility] [address], [id number] [address] P:[phone] P:[phone] Echocardiographic Report Patient Name: AMBER OLIVIER K : 1945 Study Date: 10/21/2024 12:54:34 PM Gender: F Tech: Location: [facility] Provider: GRACIA MOORE Height(Cm): 157 BSA: [...] FINDINGS: Interpretation Site: Exam was interpreted at [facility]. Left Ventricle: Normal left ventricular size. [...] By: Gracia Moore MD 10/21/2024 4:55:53 PM TRANSFORMER BUILDER Gracia Moore MD CV ECHO PROCEDURES Final Result * Electrocardiogram Report (10/02/2024 3:41 PM TRANSFORMER BUILDER) Gracia Moore MD ECG ORDERABLES Final Res ult * MCT Mobile Cardiac Telemetry Event Monitor (10/02/2024 3:24 PM TRANSFORMER BUILDER) Anatomical Region Laterality Modality Electrocardiogra phy Narrative 10/24/2024 3:45 PM TRANSFORMER BUILDER AMBULATORY CLIENT APPLICATION SUPPORT ENGINEER REPORT Patient Name: Amber Olivier Date of : 1945 Requesting Physician: Dr. Moore Date of interpretation: 10/24/24 Type of monitor : 7 day monitoring tech Date of the study/Enrollment period: 10/02/2024 through [...] was used to complete this document, therefore, skoog operator variances may occur. Gracia Moore MD, [facility] 10/24/24 Procedure Note Gracia Moore MD - 10/24/2024 AMBULATORY CLIENT APPLICATION SUPPORT ENGINEER REPORT Patient Name: Amber Olivier Date of : 1945 Requesting Physician: Dr. Moore Date of interpretation: 10/24/24 Type of monitor : 7 day monitoring tech Date of the study/Enrollment period: 10/02/2024 through 10/08/2024 Indication: Premature ventricular contractions Quality of the study: Good Interpretation: A total of 6 days 5 hours and 6 minutes recorded andanalyzed Sinus rhythm/sinus bradycardia with heart rate variability between 48 [id number] beats per minute with average heart rate [...] software was used to complete this document, therefore,skoog operator variances may occur. Gracia Moore MD, [facility] 10/24/24 Gracia Moore MD CV CARDIAC [...] Recently Relevant to Health Maintenance Insurance MEDICARE [facility] MEDICARE SUPPLEMENT INSURANCE MEDICARE [facility] MEDICARE SUPPLEMENT INSURANCE MEDICARE [facility] MEDICARE SUPPLEMENT INSURANCE Care Teams Policy Loan Calculator Relationship Specialty Start Date End Date Zora Chavez MD PCP - General Family Medicine 10/04/21
--- OUTSIDE RECORDS SUMMARY | 2024-11-15 23:56 | XMS_ITS | Referral Summary ---
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); Hypertension associated with diabetes (HCC); PVC's (premature ventricular contractions); Palpitations 10/02/2024 2:15 PM IMAGING SYSTEM ADMINISTRATOR Ancillary Procedure [facility] [address] [place] [phone] PVC's (premature ventricular contractions); Palpitations 10/02/2024 1:30 PM IMAGING SYSTEM ADMINISTRATOR Office Visit [facility] [address] [place] [address] [place] [phone] Gracia Moore MD 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) (Primary Dx); Hyperlipidemia associated with type 2 diabetes mellitus (HCC); Hypertension associated with diabetes (HCC); PVC's (premature ventricular contractions); Palpitations from Last 3 Months Allergies Active Allergy Reactions Criticality Noted Date Comments Clindamycin Itching Medium Reaction: ITCHING, , , Penicillins Hives,Swelling High Reaction: HIVES, Rnkkwvs-Otg-Ren Reductase Inhibitors Sulfa (Sulfonamide Antibiotics) Itching,Rash Medium [...] 1 tablet (88 mcg total) by mouth manager transport before breakfast Active FeroSuL 325 mg (65 [...] artery disease of n ative artery of [place] heart with stable angina pectoris 10/15/2017 Hyperlipidemia [...] on file Legal Sex Female 10:31 AM IMAGING SYSTEM ADMINISTRATOR Gender Identity Not on file Sexual Orientation Not on file Last Filed Vital Signs Vital Sign Reading Time Taken Comments Blood Pressure 114/60 10/02/2024 1:45 PM IMAGING SYSTEM ADMINISTRATOR Pulse 60 10/02/2024 1:45 PM IMAGING SYSTEM ADMINISTRATOR Temperature - - Respiratory Rate 18 01/31/2023 9:09 AM CDT Oxygen Saturation 99% 10/02/2024 1:45 PM IMAGING SYSTEM ADMINISTRATOR Inhaled Oxygen Concentration - - Weight 62.1 kg (137 lb) 10/02/2024 1:45 PM IMAGING SYSTEM ADMINISTRATOR Height 157.5 cm (5' 2 ) 10/02/2024 1:45 PM IMAGING SYSTEM ADMINISTRATOR Body Mass Index 25.06 10/02/2024 1:45 PM IMAGING SYSTEM ADMINISTRATOR Plan of Treatment Not on file Procedures Procedure Name Priority Date/Time Associated Diagnosis Comments TRANSTHORACIC ECHO (TTE) COMPLETE W DOPPLER/CF WO CONTRAST Routine 10/21/2024 1:30 PM IMAGING SYSTEM ADMINISTRATOR 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) Hypertension associated with diabetes (HCC) PVC's (premature ventricular contractions) Palpitations ELECTROCARDIOGRAM REPORT Routine 025 3:41 PM IMAGING SYSTEM ADMINISTRATOR 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) PVC's (premature ventricular contractions) Palpitations MCT - MOBILE CARDIAC TELEMETRY EVENT MONITOR Routine 10/02/2024 3:24 PM IMAGING SYSTEM ADMINISTRATOR PVC's (premature ventricular contractions) Palpitations LIPID PANEL Routine 10/09/2023 from Last 3 Months or Most Recently Relevant to Health Maintenance Results * TRANSTHORACIC ECHO (TTE) COMPLETE W DOPPLER/CF WO CONTRAST (10/21/2024 1:30 PM IMAGING SYSTEM ADMINISTRATOR) LV EF 55-60 % CONS SCIMAGE Anatomical Region Laterality Modality Ultrasound 10/21/2024 12:5 4 PM IMAGING SYSTEM ADMINISTRATOR Narrative 10/21/2024 4:57 PM IMAGING SYSTEM ADMINISTRATOR [facility] Medical Group Cardiology [address] [facility] [address], [place] [address] [address] [facility] [address], [place] [address] P:[phone] P:[phone] Echocardiographic Report Patient Name: AMBER OLIVIER K : 1945 Study Date: 10/21/2024 12:54:34 PM Gender: F Tech: Location: [place] Ref Provider: GRACIA MOORE Height(Cm): 157 BSA: [...] 0.60 - 0.90 ] MV A Peak Akn 1.03 m/s [ 1.00 - 1.20 ] [...] FINDINGS: Interpretation Site: Exam was interpreted at [facility]. Left Ventricle: Normal left ventricular size. Normal [...] By: Gracia Moore MD 10/21/2024 4:55:53 PM IMAGING SYSTEM ADMINISTRATOR Procedure Note Gracia Moore MD - 10/21/2024 [facility] Medical Group Cardiology [address] [facility] [address] [address] [address] [facility] [address] [place], [place] [address] P:[phone] P:[phone] Echocardiographic Report Patient Name: AMBER OLIVIER K : 1945 Study Date: 10/21/2024 12:54:34 PM Gender: F Tech: Location: [place] Ref Provider: GRACIA MOORE Height(Cm): 157 BSA: [...] FINDINGS: Interpretation Site: Exam was interpreted at [facility]. Left Ventricle: Normal left ventricular size. Normal [...] By: Gracia Moore MD 10/21/2024 4:55:53 PM IMAGING SYSTEM ADMINISTRATOR Gracia Moore MD CV ECHO PROCEDURES Final Result * Electrocardiogram Report (10/02/2024 3:41 PM IMAGING SYSTEM ADMINISTRATOR) us Gracia Moore MD ECG ORDERABLES Final Res ult * MCT Mobile Cardiac Telemetry Event Monitor (10/02/2024 3:24 PM IMAGING SYSTEM ADMINISTRATOR) Anatomical Region Laterality Modality Electrocardiogra phy Narrative 10/24/2024 3:45 PM IMAGING SYSTEM ADMINISTRATOR AMBULATORY NURSE HEALTHCARE MANAGER REPORT Patient Name: Amber Olivier Date of : 1945 Requesting Physician: Dr. Moore Date of interpretation: 10/24/24 Type of monitor : 7 day environmental monitoring technician Date of the study/Enrollment period: 10/02/2024 through [...] was used to complete this document, therefore, concrete block plant supervisor variances may occur. Gracia Moore MD, [facility] 10/24/24 Procedure Note Gracia Moore MD - 10/24/2024 AMBULATORY NURSE HEALTHCARE MANAGER REPORT Patient Name: Amber Olivier Date of : 1945 Requesting Physician: Dr. Moore Date of interpretation: 10/24/24 Type of monitor : 7 day environmental monitoring technician Date of the study/Enrollment period: 10/02/2024 through 10/08/2024 Indication: Premature ventricular contractions Quality of the study: Good Interpretation: A total of 6 days 5 hours and 6 minutes recorded andanalyzed Sinus rhythm/sinus bradycardia with heart rate variability between 48 [id number] beats per minute with average heart rate [...] software was used to complete this document, therefore,concrete block plant supervisor variances may occur. Gracia Moore MD, [facility] 10/24/24 Gracia Moore MD CV CARDIAC SERVICES [facility] Final Result * Lipid panel (10/09/2023) SCRIBED Cholesterol, Total 164 <200 EXTERNAL LAB SCRIBED HDL 77 >40 EXTERNAL LAB SCRIBED LDL 70 <100 EXTERNAL LAB SCRIBED Triglycerides 91 <150 EXTERNAL LAB Blood 10/09/2023 Historical Provider LAB BLOOD ORDERABLES Saira king Result EXTERNAL LAB from Last 3 Months or Most Recently Relevant to Health Maintenance Insurance MEDICARE COUNT INCLUDES THE [facility] MEDICARE SUPPLEMENT INSURANCE [place] [address]ENENDEZ [phone] [place] [address] MEDICARE COUNT INCLUDES THE [facility] MEDICARE [place] [address] MEDICARE COUNT INCLUDES THE [facility] MEDICARE SUPPLEMENT INSURANCE Care Teams Family Nurse Practitioner Relationship Specialty Start Date End Date Zora Chavez MD PCP - General Family Medicine 10/04/21
[2024-11-16] VITALS (25 sets, daily range): BP systolic 102–130; BP diastolic 56–91; PULSE 71–101; RESP 16–26; TEMP 36.5–36.8; O2SAT 80–98; BMI 26.4
[2024-11-16 00:47] LABS: Troponin I 0.843 ng/mL (0.000-0.034)
--- NOTE | 2024-11-16 01:33 | ADMGEN ---
This patient, Katja Diaz, was admitted to Intensive Care Unit-2 at 0110. Patient/family oriented to hospital policies and general routines including ID bracelet, bed and alarms, visiting hours, pain management, procedures, bathroom and other care routines, personal items, smoking policy, room service/diet, and visiting hours. Information on how to activate the Rapid Response Team has been discussed. Patient/Family are encouraged to report perceived risks to care and to ask questions if they do not understand what they are told or what they should do.
[2024-11-16 02:29] LABS: Cholesterol 155 mg/dL (0-200); HDL Direct 76 mg/dL; Triglycerides 74 mg/dL (<150)
[2024-11-16 02:40] LABS: LDL Cholesterol Direct 56 mg/dL
[2024-11-16 03:56] LABS: Basophils Percent Auto 0.5 % (0.2-1.2); Eosinophils Absolute Auto 0.2 K/mm3 (0-0.3); Eosinophils Percent Auto 2.1 % (0-4.4); Hematocrit 33.7 % (37.0-47.0); Hemoglobin 10.9 g/dL (12.0-15.0); Immature Granulocyte Absolute 0.03 K/mm3 (0.00-0.031); Immature Granulocyte Percent A 0.4 % (0-0.5); Lymphocytes Absolute Auto 1.44 K/mm3 (0.9-3.2); Lymphocytes Percent Auto 18.1 % (18.3-44.2); Mean Corpuscular HGB Conc 32.3 g/dl (32-36); Mean Corpuscular Hemoglobin 31.9 pg (26-34); Mean Corpuscular Volume 98.5 fl (80-100); Mean Platelet Volume 9.2 fl (7.4-10.4); Monocytes Absolute Auto 0.6 K/mm3 (0.1-0.6); Monocytes Percent Auto 7.2 % (2.6-8.5); Neutrophils Absolute Auto 5.7 K/mm3 (1.3-6.7); Neutrophils Percent Auto 71.7 % (45.5-73.1); Platelet Count Result 235 k/mm3 (150-375); Red Blood Count 3.42 M/mm3 (4.2-5.4); Red Cell Distribution Width 13.6 % (11.5-14.5)
[2024-11-16 03:57] LABS: MRSA (PCR) NOT DETECTED (NOT DETECTE)
[2024-11-16 04:11] LABS: Partial Thromboplastin Time 50.5 Seconds (22.3-36.8)
[2024-11-16] MEDS: HEPARIN SODIUM 5,000 UNITS/ML VIAL 4000 UNITS IV PUSH (04:44)
[2024-11-16 09:06] LABS: Anion Gap 7 mmol/L (4-12); Blood Urea Nitrogen 13 mg/dL (7-17); Calcium 8.5 mg/dL (8.4-10.2); Carbon Dioxide 25 mmol/L (22-30); Chloride 106 mmol/L (98-107); Estimated CRCL calculation 51 ml/min; Estimated Glomerular Filt Rate > 60; Glucose 109 mg/dL (65-110); Potassium 4.4 mmol/L (3.4-5.0); Sodium 138 mmol/L (137-145)
[2024-11-16 09:15] LABS: NT Pro B Type Natriuretic Pept 9740 pg/mL (19.9-100)
--- NOTE | 2024-11-16 09:46 | P.CONIN_ITS ---
Assessment and Plan Assessment and plan (1) Non-STEMI (non-ST elevated myocardial infarction): Code(s): I21.4 - Non-ST elevation (NSTEMI) myocardial infarction Status: Acute Assessment and Plan: NSTEMI in a patient with history of coronary disease status post stenting in the past. Her history of chest pain is not completely reliable as patient has dementia and some history was provided by patient's daughter. Patient does have elevated troponin and abnormal EKG Currently on heparin infusion aspirin Cozaar metoprolol Patient not on statin as an outpatient despite history of coronary disease and is listed as allergy in patient's chart Cardiology has been consult Echo is ordered Monitor (2) Type 2 diabetes mellitus with hyperglycemia: Qualifiers: Diabetes mellitus senior living insulin use: without senior living use Q ualified Code(s): E11.65 - Type 2 diabetes mellitus with hyperglycemia Code(s): E11.65 - Type 2 diabetes mellitus with hyperglycemia Status: Acute Assessment and Plan: Sliding scale in's (3) CHF (congestive heart failure): Code(s): I50.9 - Heart failure, unspecified Status: Acute Assessment and Plan: Chest x-ray shows pulmonary edema,. Patient has bilateral crackles and lower extremity edema suggestive of CHF Check BNP Lasix IV Echo ordered and pending (4) Dementia: Qualifiers: Dementia type: Alzheimer's Alzheimer's disease onset: late onset D ementia severity: moderate Dementia behavioral or psychological symptom: w ithout behavioral, psychotic, or mood disturbance or anxiety Qualified Code(s): G30.1 - Alzheimer's disease with late onset; F02.B0 - Dementia in other diseases classified elsewhere, moderate, without behavioral disturbance, psychotic disturbance, mood disturbance, and anxiety Code(s): F03.90 - Unspecified dementia, unspecified severity, without behavioral disturbance, psychotic disturbance, mood disturbance, and anxiety Status: Acute Assessment and Plan: Appears at baseline (5) Chest pain: Qualifiers: Chest pain type: chest pain due to myocardial ischemia Ischemic chest pain type: stable angina pectoris Qualified Code(s): I20.89 - Other forms of angina pectoris Code(s): R07.9 - Chest pain, unspecified Status: Acute Assessment and Plan: Her history of chest pain is not reliable but patient does have elevated troponin and abnormal EKG making diagnosis of NSTEMI. I will also check flu rule out pleuritic chest pain has her chest x-ray shows infiltrates. Plan DVT prophylaxis -heparin infusion Nutrition -npo Code Status - Full Code Total Critical Care Time - 30 minutes Due to a high probability of clinically significant, life threatening deterioration, the patient required my highest level of preparedness to intervene emergently and I personally spent this critical care time directly and personally managing the patient. This critical care time included obtaining a history; examining the patient; pulse oximetry; ordering and review of studies; arranging urgent treatment with development of a management plan; evaluation of patient's response to treatment; frequent reassessment; and discussions with other providers. It was exclusive of separately billable procedures and treating other patients and teaching time. Please see Assessment and Plan section and the rest of the note for further information on patient assessment and treatment Venetian Blind Tape Cutter Consult Note Consult date: 11/16/24 Reason for consult: NSTEMI HPI: Katja Diaz is a 79 year old female with past medical history of coronary disease with prior LAD stent 2011, moderate to severe dementia, hiatal hernia, GERD, hypothyroidism and diabetes who presented to the ER yesterday due to chest pain. As per reports The patient and her were at the [employer] playing the slots whenever the patient complained of chest pain. Patient has dementia and unable to provide any reliable history. Some of the history was provided by patient's and cooperative with patient's daughter.. Patient points towards her sternum when asked about the chest pain but then unable to give any details about severity radiation or quality of the chest pain. She is unable to clearly state whether it is a consistent chest pain or intermittent. She does complain of pain on palpation of that area.. She does admit to having cough but denies any shortness of breath. Family reports no nausea vomiting fever abdominal pain diarrhea. Limited review of system was obtainable. Workup in the ER showed mildly elevated troponin level and EKG showing ST depression. Patient was diagnosed with non STEMI patient started on heparin infusion and nitroglycerin infusion nitroglycerin infusion was quickly weaned off as patient's symptom improved. Patient admitted to ICU further evaluation managed Review of Systems 2 Review of Systems: ROS unobtainable: Yes unobtainable due to medical condition and unobtainable due to mental status PMFSH Past Medical History Medical History Raynaud's disease without gangrene Diastolic dysfunction Noted on echocardiogram September 2018 EF 60 65% grade 1 diastolic dysfunction mild left atrial enlargement mild mitral and aortic insufficiency mild tricuspid and pulmonic insufficiency myocardial perfusion study in 2019 was normal, myocardial perfusion imaging September 2020 normal Vertigo Hiatal hernia Dementia Coronary artery disease LAD Primary hypertension Back pain Anemia Left humeral fracture Hypothyroidism Arthritis GERD (gastroesophageal reflux disease) Chronic neck pain Diabetes History of shingles Surgical History Surgical History History of total abdominal hysterectomy and bilateral salpingo-oophorectomy (03/15/20) Supracervical History of sacrocolpopexy (03/15/20) With erosion of mesh History of coronary artery stent placement (05/2012) LAD stent 2011 with repeat cardiac catheterization Family History Family History Father Carcinoma of colon, Onset Age: 77 Patient's father is Family history of malignant neoplasm of stomach Sibling Family history of malignant melanoma Acute myocardial infarction Grandparent Family history of type 2 diabetes mellitus Diabetes mellitus Family history of cardiovascular disease Cerebrovascular accident Family history of throat cancer Social History Social History Social History: Patient lives with her of around 35 years. She is a lifelong nonsmoker. She used to occasionally drink alcohol but does not do so anymore. She had 3 biologic children and several step children. Code status: Full code Healthcare power of civil litigation attorney: Christina Huynh (daughter) Smoking status: Never smoker Second hand tobacco smoke exposure: No Alcohol intake: never Substance use: never Substance use type: does not use Do You Feel Safe in your Home?: Yes Lack of Transportation: No Lack of Food: Never True Current Housing: I Have Housing Concerned About Future Housing: No Difficulty Paying Gas/Electric Bills: No Difficulty Paying for Meds: No Currently Unemployed: No Education: Associate Degree Difficulty w/ Childcare or Family Care: No Living arrangements: with family Gender identity (if verbalized by the patient): Female Spiritual care concerns: No Agree to blood products: Yes Meds Home Medications and Allergies Home Medications ?Medication ?Instructions ?Recorded ?Confirmed ?Type losartan 25 mg tablet 25 mg PO BID 08/25/19 11/16/24 History metoprolol tartrate 25 mg tablet 12.5 mg PO BID 08/25/19 11/16/24 History oftyknsczdxs-Bw-tcte-minerals 1 tablet PO DAILY 03/05/20 11/16/24 History (Multiple Vitamin, Womens tablet) lancets (Accu-Chek Fastclix Lancet #100 ea 10/04/21 11/16/24 Rx Drum) blood sugar diagnostic (OneTouch #100 ea 04/12/22 11/16/24 Rx Ultra Test strips) ferrous sulfate 325 mg (65 mg 325 mg PO DAILY #1 tablet 02/14/24 11/16/24 Rx iron) tablet metformin 500 mg tablet,extended 500 mg PO DAILY #90 tabs 05/25/24 11/16/24 Rx release 24 hr aspirin 81 mg chewable tablet 81 mg PO DAILY 11/16/24 11/16/24 History (Maxime Chewable Low Dose Aspirin) docusate sodium 100 mg capsule 100 mg PO DAILY PRN constipation 11/16/24 11/16/24 History (Colace) levothyroxine 88 mcg tablet See Rx Instructions .Route .COMPLEX 11/16/24 11/16/24 History Allergies Allergy/AdvReac Type Severity Reaction Status Date / Time clindamycin Allergy Unknown Rash Verified 11/16/24 02:13 Penicillins Allergy Unknown Swelling Verified 11/16/24 02:13 of Lip/Tongue/Throat Sulfa (Sulfonamide Allergy Unknown Rash Verified 11/16/24 02:13 Antibiotics) hydrocodone AdvReac Severe Vomiting Verified 11/16/24 02:13 lisinopril AdvReac Mild Cough Verified 11/16/24 02:13 statins AdvReac Unknown Uncoded 11/16/24 02:13 Vital Signs Vital Signs - 24 hr 11/15/24 17:52 11/15/24 18:56 11/15/24 19:06 Temperature 36.8 C 36.6 C Pulse Rate 61 97 75 Respiratory Rate 18 24 H 18 Blood Pressure 112/61 117/79 117/79 Pulse Oximetry 98 100 98 Oxygen Delivery Room Air Room Air Oxygen Flow Rate 11/15/24 19:09 11/15/24 19:10 11/15/24 19:15 Temperature Pulse Rate 77 80 Respiratory Rate 21 H 19 Blood Pressure Pulse Oximetry 98 97 96 Oxygen Delivery Room Air Oxygen Flow Rate 11/15/24 19:31 11/15/24 19:32 11/15/24 19:49 Temperature Pulse Rate 75 75 71 Respiratory Rate 19 21 H 18 Blood Pressure 105/58 L Pulse Oximetry 96 99 97 Oxygen Delivery Oxygen Flow Rate 11/15/24 20:18 11/15/24 20:36 11/15/24 20:45 Temperature Pulse Rate 118 H 74 68 Respiratory Rate 20 18 19 Blood Pressure Pulse Oximetry 100 98 Oxygen Delivery Oxygen Flow Rate 11/15/24 20:46 11/15/24 20:47 11/15/24 21:03 Temperature Pulse Rate 68 69 75 Respiratory Rate 22 H 19 18 Blood Pressure 100/59 L Pulse Oximetry 98 96 97 Oxygen Delivery Oxygen Flow Rate 11/15/24 21:15 11/15/24 22:07 11/15/24 22:15 Temperature Pulse Rate 75 87 76 Respiratory Rate 20 21 H 23 H Blood Pressure Pulse Oximetry 99 88 L 97 Oxygen Delivery Oxygen Flow Rate 11/15/24 22:16 11/15/24 22:30 11/15/24 22:31 Temperature Pulse Rate 79 80 80 Respiratory Rate 21 H 28 H 15 Blood Pressure 126/80 128/76 Pulse Oximetry 94 93 91 Oxygen Delivery Oxygen Flow Rate 11/15/24 22:54 11/15/24 23:00 11/15/24 23:01 Temperature Pulse Rate 93 86 90 Respiratory Rate 14 21 H 22 H Blood Pressure 133/65 Pulse Oximetry 96 93 92 Oxygen Delivery Oxygen Flow Rate 11/15/24 23:16 11/15/24 23:30 11/15/24 23:31 Temperature Pulse Rate 84 79 80 Respiratory Rate 27 H 26 H Blood Pressure 112/67 134/79 Pulse Oximetry 96 96 Oxygen Delivery Oxygen Flow Rate 11/15/24 23:36 11/15/24 23:41 11/15/24 23:45 Temperature Pulse Rate 76 74 90 Respiratory Rate 16 21 H 21 H Blood Pressure 109/73 115/74 Pulse Oximetry 99 100 Oxygen Delivery Oxygen Flow Rate 11/15/24 23:46 11/15/24 23:51 11/15/24 23:56 Temperature Pulse Rate 88 74 79 Respiratory Rate 22 H 25 H 22 H Blood Pressure 115/79 114/86 116/94 H Pulse Oximetry 97 97 98 Oxygen Delivery Oxygen Flow Rate 11/15/24 23:57 11/16/24 00:09 11/16/24 00:15 Temperature Pulse Rate 79 85 84 Respiratory Rate 11 L 26 H 22 H Blood Pressure 116/83 Pulse Oximetry 98 96 Oxygen Delivery Oxygen Flow Rate 11/16/24 00:27 11/16/24 00:42 11/16/24 00:45 Temperature Pulse Rate 89 85 Respiratory Rate 23 H 24 H Blood Pressure Pulse Oximetry 96 91 Oxygen Delivery Nasal Cannula Oxygen Flow Rate 2 11/16/24 01:19 11/16/24 01:22 11/16/24 01:30 Temperature Pulse Rate 78 101 H Respiratory Rate 16 Blood Pressure 118/56 L Pulse Oximetry 98 94 Oxygen Delivery Oxygen Flow Rate 2 11/16/24 01:31 11/16/24 01:36 11/16/24 02:00 Temperature Pulse Rate 72 79 76 Respiratory Rate 21 H 18 Blood Pressure 113/67 113/67 107/60 Pulse Oximetry 94 93 Oxygen Delivery Oxygen Flow Rate 11/16/24 02:00 11/16/24 04:00 11/16/24 04:00 Temperature Pulse Rate 78 96 Respiratory Rate Blood Pressure Pulse Oximetry 95 Oxygen Delivery Nasal Cannula Oxygen Flow Rate 2 11/16/24 04:20 11/16/24 05:56 11/16/24 05:56 Temperature 36.8 C Pulse Rate 85 82 80 Respiratory Rate 18 17 Blood Pressure 112/64 115/63 Pulse Oximetry 97 95 Oxygen Delivery Oxygen Flow Rate 11/16/24 08:00 Temperature 36.5 C Pulse Rate 82 Respiratory Rate 22 H Blood Pressure 111/67 Pulse Oximetry 96 Oxygen Delivery Oxygen Flow Rate Exam 2 Narrative: General: Pt is alert awake and in NAD Lungs/Chest: Trachea central Clear BS B/L, bibasilar crackle, some pain on palpation and sternum Cardiac: RRR. Normal S1 S2. No murmurs Circulation: Pedal pulses are intact and symmetrical. Abdomen: Normal bowel sounds.. Soft. NT. ND. Extremities: No clubbing, cyanosis or bilateral lower extremity edema present : Harris in place Neurologic: Follows commands. Moves all 4 extremities PERRL AO x 0 Skin: No Rash Results Labs 11/16/24 03:45 11/16/24 08:47 Labs: Impressions Chest X-Ray 11/15/24 18:24 IMPRESSION: 1. Mild pulmonary edema. 2. Small left pleural effusion. Short CBC 11/15/24 11/16/24 Range/Units 18:11 03:45 WBC 5.4 8.0 (4.5-10.0) K/mm3 Hgb 10.8 L 10.9 L (12.0-15.0) g/dL Hct 33.4 L 33.7 L (37.0-47.0) % Plt Count 235 235 (150-375) k/mm3 BMP 11/15/24 11/16/24 18:11 08:47 Sodium 137 138 Potassium 4.1 4.4 Chloride 104 106 Carbon Dioxide 23 25 BUN 13 D 13 Creatinine 0.80 0.67 L Glucose 150 H 109 Calcium 9.0 8.5 Cardiac Enzymes 11/15/24 11/15/24 11/16/24 Range/Units 18:11 20:54 00:14 Troponin I 0.701 H* 0.919 H* D 0.843 H* (0.000-0.034) ng/mL Liver Function 11/15/24 Range/Units 18:11 Total Bilirubin 0.5 (0.2-1.3) mg/dL AST 27 (14-36) U/L ALT 16 (6-35) U/L Alkaline Phosphatase 84 (38-126) U/L Albumin 3.9 (3.5-5.1) g/dL
[2024-11-16] MEDS: ASPIRIN 81 MG CHEWABLE TABLET PO (10:06)
[2024-11-16] MEDS: METOPROLOL TARTRATE 12.5 MG TABLET PO ×2 (10:06→20:28)
[2024-11-16] MEDS: LEVOTHYROXINE SODIUM 88 MCG TABLET PO (10:07)
[2024-11-16] MEDS: FUROSEMIDE INJ 40 MG/4 ML VIAL 20 MG IV PUSH (10:08)
[2024-11-16 11:09] LABS: Influenza A QL RT-PCR Negative (Negative); Influenza B QL RT-PCR Negative (Negative); RSV RNA, RT-PCR Negative (Negative); SARS-CoV-2 RNA PCR Negative (Negative)
[2024-11-16 11:26] LABS: Partial Thromboplastin Time 116.1 Seconds (22.3-36.8)
[2024-11-16 16:18] LABS: Glucose Point of Care 122 mg/dl (65-105)
[2024-11-16 18:36] LABS: Partial Thromboplastin Time 76.9 Seconds (22.3-36.8)
[2024-11-16 21:27] LABS: Glucose Point of Care 109 mg/dl (65-105)
--- NOTE | 2024-11-16 23:07 | PC.NURSE ---
2299 spoke with Madeline ORTEGA about patients complaint of nausea and need for bowel movement. Requested Zofran and stated I would offer PRN Colace. Madeline ORTEGA orders one time dose 4mg Zofran IVP and if patient/daughter want it she can also have a Dulcolax suppository x1. Spoke with daughter; she thinks due to Moms dementia she isn't sure if she is actually constipated (had BM 11/15) and declines PO Colace and Dulcolax suppository at this time.
[2024-11-16] MEDS: ONDANSETRON INJ 4 MG/2 ML VIAL IV PUSH (23:13)
[2024-11-17] VITALS (19 sets, daily range): BP systolic 106–114; BP diastolic 56–76; PULSE 71–99; RESP 19–23; TEMP 36.4–36.9; O2SAT 88–98
--- NOTE | 2024-11-17 | ECHO_ITS ---
Patient Info Name: Katja Diaz Age: 79 years : 1945 Gender: Female Ht: 62 in Wt: 144 lbs BSA: 1.71 m2 HR: 83 bpm BP: 114 / 76 mmHg Heart Rhythm: Sinus Rhythm Technical Quality: Fair Exam Date: 11/17/2024 9:16 AM Exam Location: Echo Lab Patient Status: Inpatient Admit Date: 11/16/2024 Staff Ordering Physician: Alexis Go MD Inventory Associate And Driver: Roseann Bajwa RDCS Attending Provider: Brittni Dominique DO Exam Type: CA echo dop color flow w con Study Info Indications - NSTEMI Complete two-dimensional, color flow and Doppler transthoracic echocardiogram is performed with contrast to opacify the left ventricle and to improve the deliniation of the left ventricle endocardial borders. Contrast/Agitated Saline Contrast/Ag. Saline: Definity Amount: 2.00 ml Existing IV Access: Yes Summary 1. Left ventricular chamber dimension is mildly enlarged. 2. There is mildly increased left ventricular wall thickness. 3. Left ventricular systolic function is moderately reduced, estimated at 35-40%. 4. There is hypokinesis of the mid inferoseptum, anteroseptum. The apex is akinetic. 5. Right ventricular chamber dimension is normal. 6. Right ventricular systolic function is normal. 7. Left atrial chamber dimension is mildly enlarged. 8. There is moderate aortic valve regurgitation. 9. There is moderate to severe mitral valve regurgitation. 10. There is moderate tricuspid valve regurgitation. 11. Pulmonary hypertension, estimated pulmonary arterial systolic pressure is 47 mmHg. 12. Left pleural effusion present. Left Ventricle There is hypokinesis of the mid inferoseptum, anteroseptum. The apex is akinetic. Left ventricular chamber dimension is mildly enlarged. Left ventricular systolic function is moderately reduced, estimated at 35-40%. There is mildly increased left ventricular wall thickness. Right Ventricle Right ventricular chamber dimension is normal. Right ventricular systolic function is normal. Left Atria Left atrial chamber dimension is mildly enlarged. Right Atria Right atrial chamber dimension is normal. Atrial Septum Intact interatrial septum visualized by color flow imaging. Aortic Valve The aortic valve is not well visualized. There is no aortic valve stenosis. There is moderate aortic valve regurgitation. Pulmonic Valve The pulmonic valve is not well visualized. There is trace pulmonic regurgitation. Mitral Valve There is moderate to severe mitral valve regurgitation. Tricuspid Valve There is moderate tricuspid valve regurgitation. Pulmonary hypertension, estimated pulmonary arterial systolic pressure is 47 mmHg. Pericardium/Pleural Left pleural effusion present. There is no pericardial effusion. Inferior Vena Cava Normal inferior vena cava with >50% collapse upon inspiration consistent with normal right atrial pressure, 3 mmHg. Aorta The aortic root size at the sinus of Valsalva is normal. Left Ventricular Outflow Tract Name Value Normal LVOT 2D LVOT Diameter 1.94 cm LVOT Doppler LVOT Peak Gradient 3 mmHg LVOT Mean Gradient 2 mmHg LVOT VTI 17.63 cm LVOT VTI/AV VTI Ratio 0.62 LVOT Stroke Volume 52.20 ml LVOT CO 10.45 l/min LVOT CI 6.12 L/min/m2 Pulmonic Valve Name Value Normal RVOT Doppler RVOT Peak Gradient 1 mmHg PV Doppler PV Peak Gradient 1 mmHg Mitral Valve Name Value Normal MV Doppler MV Peak Gradient 8 mmHg MV Mean Gradient 3 mmHg MV Decel [place] 729.52 cm/s2 MV PHT 0 s MV Area (PHT) 4.43 cm2 4.00-5.00 MV Area (Cont Eq VTI) 1.24 cm2 MV Regurgitation Doppler MR ERO (PISA) 0.08 cm2 MR Volume (PISA) 14.22 ml MV Diastolic Function MV E Peak Velocity 125.04 cm/s MV A Peak Velocity 68.82 cm/s MV E/A 1.82 MV Decel Time 0 s MV Annular TDI MV E/e' (Septal) 30.03 <=8.00 MV E/e' (Lateral) 14.02 <=8.00 MV E/e' (Average) 22.02 Tricuspid Valve Name Value Normal TV Regurgitation Doppler TR Peak Velocity 333.09 cm/s TR Peak Gradient 44 mmHg TR ERO (PISA) 0.16 cm2 Estimated PAP/RSVP RA Pressure 3 mmHg <=5 PA Systolic Pressure 47 mmHg <36 RV Systolic Pressure 47 mmHg <36 Aorta Name Value Normal Ascending Aorta Ao Root Diameter (MM) 3.57 cm Ao Root Diam Index (MM) 2.09 cm/m2 Aortic Valve Name Value Normal AV Doppler AV Peak Velocity 151.60 cm/s AV Peak Gradient 9 mmHg AV Mean Gradient 5 mmHg AV VTI 28.37 cm AV Area (Cont Eq VTI) 1.84 cm2 >=3.00 AV Area (Cont Eq Akn) 1.61 cm2 AV Regurgitation 2D LVOT Area 2.96 cm2 AV Regurgitation Doppler AR Decel Time 1 s AR Decel [place] 288.23 cm/s2 AR PHT 0 s Ventricles Name Value Normal LV Dimensions 2D/MM IVS Diastolic Thickness (2D) 1.43 cm 0.60-1.00 LVID Diastole (2D) 3.92 cm 3.80-5.20 LVIW Diastolic Thickness (2D) 1.36 cm 0.60-0.90 LVID Systole (2D) 3.21 cm 2.20-3.50 LVOT Diameter 1.94 cm LV Mass (2D Cubed) 201.62 g 67.00-162.00 LV Mass Index (2D Cubed) 0.01 g/cm2 0.00-0.01 Relative Wall Thickness (2D) 0.69 LV Fractional Shortening/Ejection Fraction 2D/MM LV Fractional Shortening (2D) 28 % 27-45 LV EF (2D Teichren) 53 % 54-74 LV Diastolic Volume (4C MOD) 141.44 ml LV EF (4C MOD) 51 % LV Diastolic Volume (2C MOD) 103.75 ml LV EF (2C MOD) 39 % LV Diastolic Volume (BP MOD) 126.22 ml 46.00-106.00 LV Diastolic Volume Index (BP MOD) 0.07 l/m2 0.03-0.06 LV Systolic Volume (BP MOD) 66.07 ml 14.00-42.00 LV Systolic Volume Index (BP MOD) 0.04 l/m2 0.01-0.02 LV EF (BP MOD) 48 % 54-74 LV Diastolic Length (4C) 7.88 cm LV Systolic Length (4C) 6.61 cm LV Stroke Volume (4C MOD) 72.43 ml Atria Name Value Normal LA Dimensions LA Dimension (MM) 3.49 cm 2.70-3.80 LA Volume (4C A-L) 53.25 ml LA Volume (BP A-L) 64.08 ml RA Dimensions RA Area (4C) 12.58 cm2 <=18.00 Report Signatures
[2024-11-17 01:36] LABS: Partial Thromboplastin Time 78.1 Seconds (22.3-36.8)
--- NOTE | 2024-11-17 02:48 | PC.NURSE ---
0121 Dr Melton called per episode of desaturation. CXR ordered fo the morning.
[2024-11-17 05:14] LABS: Hematocrit 33.9 % (37.0-47.0); Hemoglobin 11.2 g/dL (12.0-15.0); Mean Corpuscular Hemoglobin 32.4 pg (26-34); Mean Platelet Volume 9.2 fl (7.4-10.4); Platelet Count Result 235 k/mm3 (150-375); Red Blood Count 3.46 M/mm3 (4.2-5.4); Red Cell Distribution Width 13.3 % (11.5-14.5)
[2024-11-17 05:27] LABS: Partial Thromboplastin Time 72.8 Seconds (22.3-36.8)
[2024-11-17 05:29] LABS: Alanine Aminotransferase 15 U/L (6-35); Albumin Level 3.7 g/dL (3.5-5.1); Alkaline Phosphatase 95 U/L (38-126); Anion Gap 8 mmol/L (4-12); Aspartate Amino Transferase 31 U/L (14-36); Bilirubin,Total 0.8 mg/dL (0.2-1.3); Blood Urea Nitrogen 13 mg/dL (7-17); Calcium 8.7 mg/dL (8.4-10.2); Carbon Dioxide 25 mmol/L (22-30); Chloride 103 mmol/L (98-107); Estimated CRCL calculation 50 ml/min; Estimated Glomerular Filt Rate > 60; Glucose 105 mg/dL (65-110); Magnesium 2.2 mg/dL (1.6-2.3); Sodium 136 mmol/L (137-145)
[2024-11-17] MEDS: LEVOTHYROXINE SODIUM 88 MCG TABLET PO (05:52)
[2024-11-17 07:57] LABS: Glucose Point of Care 104 mg/dl (65-105)
[2024-11-17] MEDS: METOPROLOL TARTRATE 12.5 MG TABLET PO ×2 (09:10→21:02)
[2024-11-17] MEDS: ASPIRIN 81 MG CHEWABLE TABLET PO (09:10)
--- NOTE | 2024-11-17 09:13 | PM.CNCAR ---
Assessment and Plan Assessment and plan (1) Non-STEMI (non-ST elevated myocardial infarction): Code(s): I21.4 - Non-ST elevation (NSTEMI) myocardial infarction Status: Acute (2) Type 2 diabetes mellitus with hyperglycemia: Qualifiers: Diabetes mellitus technician terminal and repeater insulin use: without technician terminal and repeater use Qualified Code(s): E11.65 - Type 2 diabetes mellitus with hyperglycemia Code(s): E11.65 - Type 2 diabetes mellitus with hyperglycemia Status: Acute (3) Anemia: Code(s): D64.9 - Anemia, unspecified Status: Acute (4) Moderate mitral regurgitation: Code(s): I34.0 - Nonrheumatic mitral (valve) insufficiency Status: Acute (5) Acute on chronic heart failure with preserved ejection fraction: Code(s): I50.33 - Acute on chronic diastolic (congestive) heart failure Status: Acute (6) Moderate aortic regurgitation: Code(s): I35.1 - Nonrheumatic aortic (valve) insufficiency Status: Acute Plan -continue aspirin 81 mg daily -she is not on a statin due to statin allergy -Continue heparin drip -can stop nitro drip if she remains chest pain free -Continue metoprolol -TTE -trend troponin to peak -cardiac catheterization in a.m. to evaluate for NSTEMI -IV Lasix 20 mg once daily -measured weight daily, ins and outs daily and dose diuretic -check and replace electrolytes as needed keeping potassium greater than 2 and magnesium greater than 4 -she will need close follow-up for her valvular heart disease with repeat TTE in 3-6 months. Recommend outpatient structural heart disease consult after she recovers from her acute illness -and SGLT2 inhibitor if blood pressure allows History of Present Illness History of Present Illness Consult date/time: 11/17/24 09:13 Reason For Visit: NSTEMI, CP Narrative: Katja Diaz is a 79-year-old female with past medical history of dementia, coronary artery disease status post PCI to LAD more than 10 years ago, moderate mitral regurgitation, moderate tricuspid regurgitation, hypertension, HFpEF, anemia, hypothyroidism, GERD, diabetes who presented to the ER along with her and daughter with chief complaint of sudden onset left-sided chest pain. History is obtained from the patient's and daughter as patient has dementia. Patient and her were at the [facility] the [employer] when the patient complained of chest pain. Pain was substernal in nature and of intensity 8/10. In the ER, she was started on nitroglycerin and heparin drips. She was noted to have an elevated troponin that peaked at 0.843 and a BNP of 9740. EKG showed sinus rhythm with sinus arrhythmia and nonspecific ST-T wave changes. Cardiology was consulted for further management. At this time patient denies any chest pain, diaphoresis, shortness of breath, lightheadedness, dizziness, presyncope, syncope, nausea, emesis, fever, chills, abdominal pain. Workup: Hemoglobin 11.2 Troponin peaked at 0.843 B and P 9 740 LDL 56 EKG sinus rhythm with sinus arrhythmia, nonspecific ST-T wave changes TTE in 2018 showed LV ejection fraction of 60-65% and moderate MR and moderate TR TTE in 09/2024 showed LVEF of 58% and moderate MR and moderate AR Monitor in 09/2024 with average heart rate 65 beats per minute, low frequency ventricular ectopy, frequent supraventricular ectopy but generally in single beat form, no atrial fibrillation and no patient triggered events Catheterization in 2021 showed patent LAD stent and 60% stenosis of an ostial diagonal Review of Systems Review of Systems: A complete review of systems could not be performed due to dementia. [facility] Past Medical History Medical History Raynaud's disease without gangrene Diastolic dysfunction Noted on echocardiogram September 2018 EF 60 65% grade 1 diastolic dysfunction mild left atrial enlargement mild mitral and aortic insufficiency mild tricuspid and pulmonic insufficiency myocardial perfusion study in 2019 was normal, myocardial perfusion imaging September 2020 normal Vertigo Hiatal hernia Dementia Coronary artery disease LAD Primary hypertension Back pain Anemia Left humeral fracture Hypothyroidism Arthritis GERD (gastroesophageal reflux disease) Chronic neck pain Diabetes History of shingles Surgical History Surgical History History of total abdominal hysterectomy and bilateral salpingo-oophorectomy (03/15/20) Supracervical History of sacrocolpopexy (03/15/20) With erosion of mesh History of coronary artery stent placement (05/2012) LAD stent 2011 with repeat cardiac catheterization Family History Family History Father Carcinoma of colon, Onset Age: 77 Patient's father is Family history of malignant neoplasm of stomach Sibling Family history of malignant melanoma Acute myocardial infarction Grandparent Family history of type 2 diabetes mellitus Diabetes mellitus Family history of cardiovascular disease Cerebrovascular accident Family history of throat cancer Social History Social History Social History: Patient lives with her of around 35 years. She is a lifelong nonsmoker. She used to occasionally drink alcohol but does not do so anymore. She had 3 biologic children and several step children. Code status: Full code Healthcare power of contract attorney: Christina Huynh (daughter) Smoking status: Never smoker Second hand tobacco smoke exposure: No Alcohol intake: never Substance use: never Substance use type: does not use Do You Feel Safe in your Home?: Yes Lack of Transportation: No Lack of Food: Never True Current Housing: I Have Housing Concerned About Future Housing: No Difficulty Paying Gas/Electric Bills: No Difficulty Paying for Meds: No Currently Unemployed: No Education: Associate Degree Difficulty w/ Childcare or Family Care: No Living arrangements: with family Gender identity (if verbalized by the patient): Female Spiritual care concerns: No Agree to blood products: Yes Meds Home Medications and Allergies Home Medications ?Medication ?Instructions ?Recorded ?Confirmed ?Type losartan 25 mg tablet 25 mg PO BID 08/25/19 11/16/24 History metoprolol tartrate 25 mg tablet 12.5 mg PO BID 08/25/19 11/16/24 History wfgwidsxwehx-Ow-kuiw-minerals 1 tablet PO DAILY 03/05/20 11/16/24 History (Multiple Vitamin, Womens tablet) lancets (Accu-Chek Fastclix Lancet #100 ea 10/04/21 11/16/24 Rx Drum) blood sugar diagnostic (OneTouch #100 ea 04/12/22 11/16/24 Rx Ultra Test strips) ferrous sulfate 325 mg (65 mg 325 mg PO DAILY #1 tablet 02/14/24 11/16/24 Rx iron) tablet metformin 500 mg tablet,extended 500 mg PO DAILY #90 tabs 05/25/24 11/16/24 Rx release 24 hr aspirin 81 mg chewable tablet 81 mg PO DAILY 11/16/24 11/16/24 History (Maxime Chewable Low Dose Aspirin) docusate sodium 100 mg capsule 100 mg PO DAILY PRN constipation 11/16/24 11/16/24 History (Colace) levothyroxine 88 mcg tablet See Rx Instructions .Route .COMPLEX 11/16/24 11/16/24 History Allergies Allergy/AdvReac Type Severity Reaction Status Date / Time clindamycin Allergy Unknown Rash Verified 11/16/24 02:13 Penicillins Allergy Unknown Swelling Verified 11/16/24 02:13 of Lip/Tongue/Throat Sulfa (Sulfonamide Allergy Unknown Rash Verified 11/16/24 02:13 Antibiotics) hydrocodone AdvReac Severe Vomiting Verified 11/16/24 02:13 lisinopril AdvReac Mild Cough Verified 11/16/24 02:13 statins AdvReac Unknown Uncoded 11/16/24 02:13 Vital Signs Vital Signs - 24 hr 11/16/24 10:00 11/16/24 10:00 11/16/24 10:06 Temperature Pulse Rate 93 93 84 Respiratory Rate 25 H Blood Pressure 103/67 Pulse Oximetry 96 Oxygen Delivery Oxygen Flow Rate 11/16/24 12:00 11/16/24 12:00 11/16/24 12:00 Temperature Pulse Rate 82 71 Respiratory Rate 19 Blood Pressure 102/65 Pulse Oximetry 93 93 Oxygen Delivery Room Air Oxygen Flow Rate 11/16/24 14:00 11/16/24 16:00 11/16/24 16:00 Temperature 36.7 C Pulse Rate 77 79 75 Respiratory Rate 23 H Blood Pressure 130/91 H Pulse Oximetry Oxygen Delivery Oxygen Flow Rate 11/16/24 16:00 11/16/24 18:00 11/16/24 20:00 Temperature Pulse Rate 79 82 Respiratory Rate 21 H Blood Pressure Pulse Oximetry 96 Oxygen Delivery Room Air Room Air Oxygen Flow Rate 11/16/24 20:00 11/16/24 20:00 11/16/24 20:28 Temperature 36.7 C Pulse Rate 82 83 77 Respiratory Rate 22 H Blood Pressure 115/74 Pulse Oximetry 96 Oxygen Delivery Oxygen Flow Rate 11/16/24 22:47 11/16/24 23:30 11/17/24 00:00 Temperature Pulse Rate 82 98 Respiratory Rate Blood Pressure Pulse Oximetry 80 L Oxygen Delivery Room Air Oxygen Flow Rate 11/17/24 00:30 11/17/24 00:30 11/17/24 02:00 Temperature 36.7 C Pulse Rate 96 88 78 Respiratory Rate 23 H 23 H Blood Pressure 111/66 Pulse Oximetry 96 94 Oxygen Delivery Nasal Cannula Oxygen Flow Rate 1 11/17/24 04:00 11/17/24 05:00 11/17/24 05:00 Temperature 36.9 C Pulse Rate 77 84 Respiratory Rate 20 Blood Pressure 113/71 Pulse Oximetry 92 92 Oxygen Delivery Room Air Oxygen Flow Rate 11/17/24 06:00 11/17/24 08:00 11/17/24 09:10 Temperature 36.6 C Pulse Rate 76 83 80 Respiratory Rate 19 Blood Pressure 114/76 Pulse Oximetry 95 Oxygen Delivery Oxygen Flow Rate Exam Narrative: General: Alert oriented x3, no acute distress Neck: Supple, JVD + Chest: Bilaterally clear to auscultation, no rales or rhonchi Cardiac: S1, S2 +, regular rate, regular rhythm, no murmurs or rubs Extremities: Bilateral lower extremity edema 1+, no skin rash Neurologic: Dementia, no focal weakness Results Labs and Meds 11/17/24 05:02 11/17/24 05:02 Lab results: Cardiac Enzymes 11/17/24 Range/Units 05:02 AST 31 (14-36) U/L Coagulation 11/16/24 11/16/24 11/17/24 Range/Units 11:00 18:15 01:06 APTT 116.1 H 76.9 H 78.1 H (22.3-36.8) Seconds 11/17/24 Range/Units 05:02 APTT 72.8 H (22.3-36.8) Seconds CBC 11/17/24 Range/Units 05:02 WBC 7.0 (4.5-10.0) K/mm3 RBC 3.46 L (4.2-5.4) M/mm3 Hgb 11.2 L (12.0-15.0) g/dL Hct 33.9 L (37.0-47.0) % Plt Count 235 (150-375) k/mm3 Comprehensive Metabolic Panel 11/17/24 Range/Units 05:02 Sodium 136 L (137-145) mmol/L Potassium 4.0 (3.4-5.0) mmol/L Chloride 103 (98-107) mmol/L Carbon Dioxide 25 (22-30) mmol/L BUN 13 (7-17) mg/dL Creatinine 0.69 L (0.7-1.0) mg/dL Glucose 105 (65-110) mg/dL Calcium 8.7 (8.4-10.2) mg/dL AST 31 (14-36) U/L ALT 15 (6-35) U/L Alkaline Phosphatase 95 (38-126) U/L Total Protein 7.0 (6.3-8.2) g/dL Albumin 3.7 (3.5-5.1) g/dL Intake and Output 11/16/24 11/17/24 11/17/24 23:59 07:59 15:59 Intake Total 538.1 82.5 Output Total 1160 100 Balance -621.9 -17.5 Intake: IV 58.1 82.5 Heparin Sod/D5w 100 Units/ml 25 58.1 82.5 ,000 units In 250 ml @ 700 UNITS/HR 7 mls/hr IV CONT .Q24H [facility] Rx#:[id number] Oral 480 Output: Urine 1160 100 Patient Weight 11/17/24 23:59 Weight 66.8 kg EKG Interpretation EKG shows: sinus rhythm
[2024-11-17] MEDS: HEPARIN SOD/D5W 100 UNITS/ML 25,000 UNITS/250 ML BAG 7 UNITS IV CONT (09:23)
[2024-11-17] MEDS: PERFLUTREN LIPID MICROSPHERES 1.5 ML VIAL DILUTED TO 10 ML TOTAL VOLUME IV PUSH (09:35)
--- NOTE | 2024-11-17 12:02 | IVDEFINITY ---
Prior to administration of IV Definity the patient was educated on the risks and benefits of the imaging enhancing agent including potential adverse side effects. The patient verbalized understanding. Allergies were verified. No exclusion criteria were identified and at least one of the following inclusion criteria were met: 1) physician request, 2) patient technically difficult to image (per the [place] [employer]ocardi[employer] guidelines of two or more segments not discernable within the apical view), or 3) questionable left ventricular function. ?
[2024-11-17 12:04] LABS: Glucose Point of Care 95 mg/dl (65-105)
[2024-11-17 15:22] LABS: Glucose Point of Care 100 mg/dl (65-105)
--- NOTE | 2024-11-17 16:13 | PCCPR ---
Spoke with Katja and her daughter at bedside. Overview of program given and daughter verbalized understanding. States she lives in [facility] offered the [facility] location as an alternative she states they frequently travel to [place] and have difficulty making apt's before the afternoon. Info left at bedside.
[2024-11-17 20:41] LABS: Glucose Point of Care 104 mg/dl (65-105)
--- NOTE | 2024-11-17 23:21 | PC.NURSE ---
This patient, Katja Diaz, was transferred to IMU [id number] on 11/17/24 at 2308. Personal belongings sent with patient and daughter staying overnight. Report given to Lisa Salazar RN. Appropriate documentation sent with patient.
[2024-11-18] VITALS (37 sets, daily range): BP systolic 83–123; BP diastolic 46–80; PULSE 60–123; RESP 11–62; TEMP 36.4–37.2; O2SAT 91–98
--- NOTE | 2024-11-18 00:35 | ECG_ITS ---
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
--- NOTE | 2024-11-18 01:00 | PC.NURSE ---
Notified Dr. Melton of EKG reading afib rate 97 to 100's. No shortness of breath, chest pain, or complaints otherwise from patient. Instructed to notify cardiology in AM.
[2024-11-18 05:07] LABS: Basophils Percent Auto 0.5 % (0.2-1.2); Eosinophils Absolute Auto 0.1 K/mm3 (0-0.3); Eosinophils Percent Auto 1.2 % (0-4.4); Hemoglobin 10.6 g/dL (12.0-15.0); Immature Granulocyte Absolute 0.02 K/mm3 (0.00-0.031); Immature Granulocyte Percent A 0.3 % (0-0.5); Lymphocytes Absolute Auto 1.37 K/mm3 (0.9-3.2); Lymphocytes Percent Auto 21.3 % (18.3-44.2); Mean Corpuscular HGB Conc 32.1 g/dl (32-36); Mean Corpuscular Hemoglobin 32.4 pg (26-34); Mean Corpuscular Volume 100.9 fl (80-100); Mean Platelet Volume 9.5 fl (7.4-10.4); Monocytes Absolute Auto 0.5 K/mm3 (0.1-0.6); Monocytes Percent Auto 8.1 % (2.6-8.5); Neutrophils Absolute Auto 4.4 K/mm3 (1.3-6.7); Neutrophils Percent Auto 68.6 % (45.5-73.1); Platelet Count Result 218 k/mm3 (150-375); Red Blood Count 3.27 M/mm3 (4.2-5.4); Red Cell Distribution Width 13.3 % (11.5-14.5); White Blood Count 6.4 K/mm3 (4.5-10.0)
[2024-11-18 05:27] LABS: Partial Thromboplastin Time 31.4 Seconds (22.3-36.8)
[2024-11-18 05:28] LABS: Alanine Aminotransferase 14 U/L (6-35); Albumin Level 3.3 g/dL (3.5-5.1); Alkaline Phosphatase 85 U/L (38-126); Anion Gap 9 mmol/L (4-12); Aspartate Amino Transferase 26 U/L (14-36); Bilirubin,Total 0.8 mg/dL (0.2-1.3); Blood Urea Nitrogen 14 mg/dL (7-17); Calcium 8.3 mg/dL (8.4-10.2); Carbon Dioxide 19 mmol/L (22-30); Chloride 105 mmol/L (98-107); Estimated CRCL calculation 60 ml/min; Estimated Glomerular Filt Rate > 60; Glucose 98 mg/dL (65-110); Magnesium 2.4 mg/dL (1.6-2.3); Phosphorus 3.2 mg/dL (2.5-4.5); Potassium 3.9 mmol/L (3.4-5.0); Sodium 133 mmol/L (137-145)
[2024-11-18] MEDS: HEPARIN SODIUM 5,000 UNITS/ML VIAL 4000 UNITS IV PUSH (06:08)
[2024-11-18 07:31] LABS: Glucose Point of Care 111 mg/dl (65-105)
--- NOTE | 2024-11-18 08:28 | P.PNIM_ITS ---
Progress Note: A&P Assessment and Plan (1) Acquired hypothyroidism: Code(s): E03.9 - Hypothyroidism, unspecified Status: Acute (2) Non-STEMI (non-ST elevated myocardial infarction): Code(s): I21.4 - Non-ST elevation (NSTEMI) myocardial infarction Status: Acute (3) Acute on chronic heart failure with preserved ejection fraction: Code(s): I50.33 - Acute on chronic diastolic (congestive) heart failure Status: Acute (4) Type 2 diabetes mellitus with hyperglycemia: Qualifiers: Diabetes mellitus detention insulin use: without detention use Qualified Code(s): E11.65 - Type 2 diabetes mellitus with hyperglycemia Code(s): E11.65 - Type 2 diabetes mellitus with hyperglycemia Status: Acute Plan (1) Non-STEMI (non-ST elevated myocardial infarction): Code(s): I21.4 - Non-ST elevation (NSTEMI) myocardial infarction Status: Acute Assessment and Plan: NSTEMI in a patient with history of coronary disease status post stenting in the past. Her history of chest pain is not completely reliable as patient has dementia and some history was provided by patient's daughter. Patient does have elevated troponin and abnormal EKG Currently on heparin infusion aspirin Cozaar metoprolol Patient not on statin as an outpatient despite history of coronary disease and is listed as allergy in patient's chart Cardiology has been consult Echo is done, pending report Patient does not have chest pain today, nitroglycerin drip is stopped. Continue heparin drip per manager of engineering recommendation (2) Type 2 diabetes mellitus with hyperglycemia: Qualifiers: Diabetes mellitus detention insulin use: without detention use Qualified Code(s): E11.65 - Type 2 diabetes mellitus with hyperglycemia Code(s): E11.65 - Type 2 diabetes mellitus with hyperglycemia Status: Acute Assessment and Plan: Sliding scale in's (3) CHF (congestive heart failure): Code(s): I50.9 - Heart failure, unspecified Status: Acute Assessment and Plan: Chest x-ray shows pulmonary edema,. Patient has bilateral crackles and lower extremity edema suggestive of CHF Check BNP Lasix IV Echo ordered and pending (4) Dementia: Qualifiers: Dementia type: Alzheimer's Alzheimer's disease onset: late onset Dementia severity: moderate Dementia behavioral or psychological symptom: without behavioral, psychotic, or mood disturbance or anxiety Qualified Code(s): G30.1 - Alzheimer's disease with late onset; F02.B0 - Dementia in other diseases classified elsewhere, moderate, without behavioral disturbance, psychotic disturbance, mood disturbance, and anxiety Code(s): F03.90 - Unspecified dementia, unspecified severity, without behavioral disturbance, psychotic disturbance, mood disturbance, and anxiety Status: Acute Assessment and Plan: Appears at baseline (5) Chest pain: Qualifiers: Chest pain type: chest pain due to myocardial ischemia Ischemic chest pain type: stable angina pectoris Qualified Code(s): I20.89 - Other forms of angina pectoris Due to NSTEMI Started nitroglycerin drip initially, chronic patient has no chest pain Stop nitroglycerin drip per manager of engineering Subjective Date/time seen: 11/18/24 08:28 Interval history: I saw examined patient today in presents of patient's and daughter. Patient denies chest pain, shortness breast, abdomen pain, nausea vomiting diarrhea. Patient feels comfortable today. Patient is afebrile, blood pressure stable, pulse ox 98 on 2 L oxygen Exam Narrative: GENERAL: Pleasant, in no acute distress. Well-nourished. - EYES: EOMI. Anicteric. - HENT: Moist mucous membranes. - LUNGS: Clear to auscultation bilateral ly, no wheezing, rhonchi, or rales. - CARDIOVASCULAR: Regular rate and rhyth m. No murmur. No JVD. - ABDOMEN: Soft, non-tender and non-dist ended. No palpable masses. - EXTREMITIES: No edema. Peripheral puls es 2+. Non-tender. - NEUROLOGIC: No focal neurological defi cits. CN II-XII grossly intact. - PSYCHIATRIC: Awake, Alert and oriented x 3. Appropriate mood and affect. - SKIN: No rashes or lesions. Warm. - LYMPH: No cervical lymphadenopathy. Objective Data Vital Signs Vital Signs: Vital Signs - 24 hr 11/17/24 09:10 11/17/24 10:00 11/17/24 12:00 Temperature 97.6 F Pulse Rate 80 71 78 Respiratory Rate 19 Blood Pressure 109/56 L Pulse Oximetry 98 Oxygen Delivery Oxygen Flow Rate 11/17/24 12:00 11/17/24 12:00 11/17/24 14:00 Temperature Pulse Rate 76 86 Respiratory Rate Blood Pressure Pulse Oximetry 96 Oxygen Delivery Nasal Cannula Oxygen Flow Rate 1 11/17/24 15:56 11/17/24 16:00 11/17/24 16:00 Temperature 98.4 F Pulse Rate 99 94 Respiratory Rate 22 H Blood Pressure 106/65 Pulse Oximetry 96 96 Oxygen Delivery Room Air Oxygen Flow Rate 11/17/24 16:45 11/17/24 17:36 11/17/24 18:00 Temperature Pulse Rate 76 Respiratory Rate Blood Pressure Pulse Oximetry 88 L 96 Oxygen Delivery Nasal Cannula Nasal Cannula Oxygen Flow Rate 2 2 11/17/24 20:00 11/17/24 20:00 11/17/24 20:00 Temperature 97.8 F Pulse Rate 93 93 Respiratory Rate 21 H Blood Pressure 111/70 Pulse Oximetry 96 90 Oxygen Delivery Nasal Cannula Oxygen Flow Rate 2 11/17/24 21:02 11/17/24 22:00 11/18/24 00:00 Temperature Pulse Rate 77 72 Respiratory Rate Blood Pressure Pulse Oximetry 96 Oxygen Delivery Nasal Cannula Oxygen Flow Rate 2 11/18/24 00:00 11/18/24 00:13 11/18/24 02:27 Temperature 98.2 F Pulse Rate 103 H 100 80 Respiratory Rate 20 Blood Pressure 123/80 Pulse Oximetry 91 Oxygen Delivery Oxygen Flow Rate 11/18/24 03:41 11/18/24 04:00 11/18/24 06:02 Temperature 99.0 F Pulse Rate 80 83 Respiratory Rate 20 Blood Pressure 106/57 L Pulse Oximetry 97 98 Oxygen Delivery Nasal Cannula Oxygen Flow Rate 2 11/18/24 06:31 11/18/24 07:57 Temperature 98.0 F Pulse Rate 60 69 Respiratory Rate 18 Blood Pressure 111/66 Pulse Oximetry 97 Oxygen Delivery Oxygen Flow Rate Intake/Output Intake/Output: Intake & Output 11/15/24 11/16/24 11/17/24 11/18/24 23:59 23:59 23:59 23:59 Intake Total 1000 641.8 239.9 57.2 Output Total 1260 450 200 Balance 1000 -618.2 -210.1 -142.8 Meds/Results Medications: Active Medications Generic Name Dose Route Start Last Admin Trade Name Freq PRN Reason Stop Dose Admin Aspirin 81 mg 11/16/24 09:00 11/17/24 09:10 Aspirin 81 Mg Chewable Tablet PO 81 mg DAILY DONNIE Administration Dextrose 12.5 gm 11/15/24 21:00 Dextrose 50% 25 Gm/50 Ml Syringe IV PUSH PRN PRN Hypoglycemia Protocol Docusate Sodium 100 mg 11/16/24 06:34 Docusate Sodium 100 Mg Capsule PO DAILY PRN constipation Ferrous Sulfate 325 mg 11/16/24 09:00 11/17/24 09:46 Ferrous Sulfate [address] BY MOUTH Not Given DAILY DONNIE Glucagon 1 mg 11/15/24 21:00 Glucagon For Inj 1 Mg Vial IM PRN PRN Hypoglycemia Protocol Glucose 15 gm 11/15/24 21:00 Glucose Oral Gel 15 Gm Of Glucse In 37.5 Gm Tube PO PRN PRN Hypoglycemia Protocol Heparin Sodium (Porcine) 4,000 units 11/15/24 19:56 11/18/24 06:08 Heparin Sodium 5,000 Units/Ml Vial IV PUSH 4,000 units PRN PRN Administration aPTT less than 55 seconds Heparin Sodium (Porcine) 2,000 units 11/15/24 19:56 Heparin Sodium 5,000 Units/Ml Vial IV PUSH PRN PRN aPTT 55 - 70 seconds Heparin Sodium/Dextrose 25,000 units in 250 mls @ 9 mls/hr 11/15/24 20:00 11/18/24 06:10 Heparin Sodium/D5w 100 Units/Ml IV CONT 900 units/hr .Q24H DONNIE 9 mls/hr Titration Protocol 900 UNITS/HR Dextrose 1,000 mls @ 100 mls/hr 11/15/24 21:00 Dextrose 5% 1,000 Ml IVPB PRN PRN Hypoglycemia Protocol Insulin Aspart 2 - 5 units 11/16/24 08:00 11/17/24 15:50 Insulin Aspart (*Bkc) 100 Units/Ml SUB-Q Not Given TIDWM [facility] Protocol Levothyroxine Sodium 88 mcg 11/16/24 06:45 11/17/24 05:52 Levothyroxine Sodium 88 Mcg Tablet PO 88 mcg DAILY@0630 DONNIE Administration Losartan Potassium 25 mg 11/16/24 09:00 11/17/24 16:28 Losartan Potassium 25 Mg Tablet PO Not Given BID DONNIE Metoprolol Tartrate 12.5 mg 11/16/24 09:00 11/17/24 21:02 Metoprolol Tartrate 12.5 Mg Tablet PO 12.5 mg Q12HR DONNIE Administration Multivitamins/Calcium 1 tablet 11/16/24 09:00 11/17/24 09:46 Therapeutic Multivitamins/Minerals Tab (*Bkc) PO Not Given DAILY DONNIE Radiology Results: ITS Impressions Chest X-Ray 11/17/24 06:52 Impression: Moderate pulmonary edema pattern with small to moderate bilateral pleural effusions. Correlate clinically for pneumonia. Labs Labs: Laboratory Results - last 24 hr 11/17/24 11/17/24 11/17/24 11:40 15:20 20:29 WBC RBC Hgb Hct MCV MCH MCHC RDW Plt Count MPV Immature Gran % (Auto) Neut % (Auto) Lymph % (Auto) [place] % (Auto) Eos % (Auto) Baso % (Auto) Lymph # (Auto) [place] # (Auto) Eos # (Auto) Baso # (Auto) Abs Immat Gran (auto) Absolute Neuts (auto) Absolute Nucleated RBC Nucleated RBC % APTT Sodium Potassium Chloride Carbon Dioxide Anion Gap BUN Creatinine Estim Creat Clear Calc Estimated GFR Glucose POC Capillary Glucose 95 100 104 Calcium Phosphorus Magnesium Total Bilirubin AST ALT Alkaline Phosphatase Total Protein Albumin 11/18/24 11/18/24 04:46 07:26 WBC 6.4 RBC 3.27 L Hgb 10.6 L Hct 33.0 L MCV 100.9 H MCH 32.4 MCHC 32.1 RDW 13.3 Plt Count 218 MPV 9.5 Immature Gran % (Auto) 0.3 Neut % (Auto) 68.6 Lymph % (Auto) 21.3 [place] % (Auto) 8.1 Eos % (Auto) 1.2 Baso % (Auto) 0.5 Lymph # (Auto) 1.37 [place] # (Auto) 0.5 Eos # (Auto) 0.1 Baso # (Auto) 0.0 Abs Immat Gran (auto) 0.02 Absolute Neuts (auto) 4.4 Absolute Nucleated RBC 0.000 Nucleated RBC % 0.0 APTT 31.4 Sodium 133 L Potassium 3.9 Chloride 105 Carbon Dioxide 19 L Anion Gap 9 BUN 14 Creatinine 0.57 L Estim Creat Clear Calc 60 Estimated GFR > 60 Glucose 98 POC Capillary Glucose 111 H Calcium 8.3 L Phosphorus 3.2 Magnesium 2.4 H Total Bilirubin 0.8 AST 26 ALT 14 Alkaline Phosphatase 85 Total Protein 6.0 L Albumin 3.3 L
[2024-11-18] MEDS: METOPROLOL TARTRATE 12.5 MG TABLET PO ×2 (08:57→22:50)
[2024-11-18] MEDS: LOSARTAN POTASSIUM 25 MG TABLET PO (08:57)
[2024-11-18] MEDS: ASPIRIN 81 MG CHEWABLE TABLET PO (08:57)
[2024-11-18] MEDS: FERROUS SULFATE 325 MG TABLET DR BY MOUTH (08:57)
[2024-11-18] MEDS: THERAPEUTIC MULTIVITAMINS/MINERALS TAB (*BKC) 1 TABLET PO (08:57)
[2024-11-18 12:19] LABS: Glucose Point of Care 89 mg/dl (65-105)
--- NOTE | 2024-11-18 13:05 | P.SEDATION_ITS ---
Moderate Sedation Note-Pt Data Patient Data Allergies Allergy/AdvReac Type Severity Reaction Status Date / Time clindamycin Allergy Unknown Rash Verified 11/16/24 02:13 Penicillins Allergy Unknown Swelling Verified 11/16/24 02:13 of Lip/Tongue/Throat Sulfa (Sulfonamide Allergy Unknown Rash Verified 11/16/24 02:13 Antibiotics) hydrocodone AdvReac Severe Vomiting Verified 11/16/24 02:13 lisinopril AdvReac Mild Cough Verified 11/16/24 02:13 statins AdvReac Unknown Uncoded 11/16/24 02:13 Home Medications ?Medication ?Instructions ?Recorded ?Confirmed ?Type losartan 25 mg tablet 25 mg PO BID 08/25/19 11/16/24 History metoprolol tartrate 25 mg tablet 12.5 mg PO BID 08/25/19 11/16/24 History indevdfulaig-Gv-wnxp-minerals 1 tablet PO DAILY 03/05/20 11/16/24 History (Multiple Vitamin, Womens tablet) lancets (Accu-Chek Fastclix Lancet #100 ea 10/04/21 11/16/24 Rx Drum) blood sugar diagnostic (OneTouch #100 ea 04/12/22 11/16/24 Rx Ultra Test strips) ferrous sulfate 325 mg (65 mg 325 mg PO DAILY #1 tablet 02/14/24 11/16/24 Rx iron) tablet metformin 500 mg tablet,extended 500 mg PO DAILY #90 tabs 05/25/24 11/16/24 Rx release 24 hr aspirin 81 mg chewable tablet 81 mg PO DAILY 11/16/24 11/16/24 History (Maxime Chewable Low Dose Aspirin) docusate sodium 100 mg capsule 100 mg PO DAILY PRN constipation 11/16/24 11/16/24 History (Colace) levothyroxine 88 mcg tablet See Rx Instructions .Route .COMPLEX 11/16/24 11/16/24 History Current Medications: Active Medications Aspirin (Aspirin 81 Mg Chewable Tablet) 81 mg PO DAILY [facility] Last Admin: 11/18/24 08:57 Dose: 81 mg Dextrose (Dextrose 50% 25 Gm/50 Ml Syringe) 12.5 gm IV PUSH PRN PRN; Protocol PRN Reason: Hypoglycemia Docusate Sodium (Docusate Sodium 100 Mg Capsule) 100 mg PO DAILY PRN PRN Reason: constipation Ferrous Sulfate (Ferrous Sulfate [address]) 325 mg BY MOUTH DAILY [facility] Last Admin: 11/18/24 08:57 Dose: 325 mg Glucagon (Glucagon For Inj 1 Mg Vial) 1 mg IM PRN PRN; Protocol PRN Reason: Hypoglycemia Glucose (Glucose Oral Gel 15 Gm Of Glucse In 37.5 Gm Tube) 15 gm PO PRN PRN; Protocol PRN Reason: Hypoglycemia Heparin Sodium (Porcine) (Heparin Sodium 5,000 Units/Ml Vial) 4,000 units IV PUSH PRN PRN PRN Reason: aPTT less than 55 seconds Last Admin: 11/18/24 06:08 Dose: 4,000 units Heparin Sodium (Porcine) (Heparin Sodium 5,000 Units/Ml Vial) 2,000 units IV PUSH PRN PRN PRN Reason: aPTT 55 - 70 seconds Heparin Sodium/Dextrose (Heparin Sodium/D5w 100 Units/Ml) 25,000 units in 250 mls @ 9 mls/hr IV CONT .Q24H [facility]; Protocol Last Titration: 11/18/24 06:10 Dose: 900 units/hr, 9 mls/hr Dextrose (Dextrose 5% 1,000 Ml) 1,000 mls @ 100 mls/hr IVPB PRN PRN; Protocol PRN Reason: Hypoglycemia Insulin Aspart (Insulin Aspart (*Bkc) 100 Units/Ml) 2 - 5 units SUB-Q TIDWM [facility]; Protocol Last Admin: 11/18/24 12:11 Dose: Not Given Levothyroxine Sodium (Levothyroxine Sodium 88 Mcg Tablet) 88 mcg PO DAILY@0630 [facility] Last Admin: 11/18/24 08:56 Dose: Not Given Losartan Potassium (Losartan Potassium 25 Mg Tablet) 25 mg PO BID [facility] Last Admin: 11/18/24 08:57 Dose: 25 mg Metoprolol Tartrate (Metoprolol Tartrate 12.5 Mg Tablet) 12.5 mg PO Q12HR [facility] Last Admin: 11/18/24 08:57 Dose: 12.5 mg Multivitamins/Calcium (Therapeutic Multivitamins/Minerals Tab (*Bkc)) 1 tablet PO DAILY [facility] Last Admin: 11/18/24 08:57 Dose: 1 tablet Ondansetron HCl (Ondansetron Inj 4 Mg/2 Ml Vial) 4 mg IV PUSH Q6H PRN PRN Reason: Nausea And Vomiting Sedation/Anesthesia: No previous sedation/anesthesia problems (including family history). PMFSH Past Medical History Medical History Raynaud's disease without gangrene Diastolic dysfunction Noted on echocardiogram September 2018 EF 60 65% grade 1 diastolic dysfunction mild left atrial enlargement mild mitral and aortic insufficiency mild tricuspid and pulmonic insufficiency myocardial perfusion study in 2019 was normal, myocardial perfusion imaging September 2020 normal Vertigo Hiatal hernia Dementia Coronary artery disease LAD Primary hypertension Back pain Anemia Left humeral fracture Hypothyroidism Arthritis GERD (gastroesophageal reflux disease) Chronic neck pain Diabetes History of shingles Surgical History Surgical History History of total abdominal hysterectomy and bilateral salpingo-oophorectomy (03/15/20) Supracervical History of sacrocolpopexy (03/15/20) With erosion of mesh History of coronary artery stent placement (05/2012) LAD stent 2011 with repeat cardiac catheterization Family History Family History Father Carcinoma of colon, Onset Age: 77 Patient's father is Family history of malignant neoplasm of stomach Sibling Family history of malignant melanoma Acute myocardial infarction Grandparent Family history of type 2 diabetes mellitus Diabetes mellitus Family history of cardiovascular disease Cerebrovascular accident Family history of throat cancer Social History Social History Social History: Patient lives with her of around 35 years. She is a lifelong nonsmoker. She used to occasionally drink alcohol but does not do so anymore. She had 3 biologic children and several step children. Code status: Full code Healthcare power of operations business partner: Christinalamberto Huynh (daughter) Smoking status: Never smoker Second hand tobacco smoke exposure: No Alcohol intake: never Substance use: never Substance use type: does not use Do You Feel Safe in your Home?: Yes Lack of Transportation: No Lack of Food: Never True Current Housing: I Have Housing Concerned About Future Housing: No Difficulty Paying Gas/Electric Bills: No Difficulty Paying for Meds: No Currently Unemployed: No Education: Associate Degree Difficulty w/ Childcare or Family Care: No Living arrangements: with family Gender identity (if verbalized by the patient): Female Spiritual care concerns: No Agree to blood products: Yes Mod Sed Physical Exam Physical Exam Pre Procedural Exam: Normal: Lungs, Heart Rate and Heart Rhythm Hours since solid foods: 12 Hours since liquid intake: 12 Mallampati Classification: class III Internal Medicine - PN: Obj Da Vital Signs Vital Signs: Vital Signs - 24 hr 11/17/24 14:00 11/17/24 15:56 11/17/24 16:00 Temperature 36.9 C Pulse Rate 86 99 Pulse Rate [Right Radial] Respiratory Rate 22 H Blood Pressure 106/65 Pulse Oximetry 96 96 Oxygen Delivery Room Air Oxygen Flow Rate 11/17/24 16:00 11/17/24 16:45 11/17/24 17:36 Temperature Pulse Rate 94 Pulse Rate [Right Radial] Respiratory Rate Blood Pressure Pulse Oximetry 88 L 96 Oxygen Delivery Nasal Cannula Nasal Cannula Oxygen Flow Rate 2 2 11/17/24 18:00 11/17/24 20:00 11/17/24 20:00 Temperature Pulse Rate 76 93 Pulse Rate [Right Radial] Respiratory Rate Blood Pressure Pulse Oximetry 96 Oxygen Delivery Nasal Cannula Oxygen Flow Rate 2 11/17/24 20:00 11/17/24 21:02 11/17/24 22:00 Temperature 36.6 C Pulse Rate 93 77 72 Pulse Rate [Right Radial] Respiratory Rate 21 H Blood Pressure 111/70 Pulse Oximetry 90 Oxygen Delivery Oxygen Flow Rate 11/18/24 00:00 11/18/24 00:00 11/18/24 00:13 Temperature 36.8 C Pulse Rate 103 H 100 Pulse Rate [Right Radial] Respiratory Rate 20 Blood Pressure 123/80 Pulse Oximetry 96 91 Oxygen Delivery Nasal Cannula Oxygen Flow Rate 2 11/18/24 02:27 11/18/24 03:41 11/18/24 04:00 Temperature Pulse Rate 80 80 Pulse Rate [Right Radial] Respiratory Rate Blood Pressure Pulse Oximetry 97 Oxygen Delivery Nasal Cannula Oxygen Flow Rate 2 11/18/24 06:02 11/18/24 06:31 11/18/24 07:57 Temperature 37.2 C 36.7 C Pulse Rate 83 60 69 Pulse Rate [Right Radial] Respiratory Rate 20 18 Blood Pressure 106/57 L 111/66 Pulse Oximetry 98 97 Oxygen Delivery Oxygen Flow Rate 11/18/24 08:57 11/18/24 11:45 11/18/24 12:00 Temperature 36.4 C L Pulse Rate 80 62 63 Pulse Rate [Right Radial] 63 Respiratory Rate 11 L 17 Blood Pressure 96/52 L 93/50 L Pulse Oximetry 92 93 Oxygen Delivery Oxygen Flow Rate 11/18/24 12:15 11/18/24 12:30 Temperature Pulse Rate 68 68 Pulse Rate [Right Radial] 68 68 Respiratory Rate Blood Pressure 96/47 L 93/53 L Pulse Oximetry Oxygen Delivery Oxygen Flow Rate Intake/Output Intake/Output: Intake & Output 11/15/24 11/16/24 11/17/24 11/18/24 23:59 23:59 23:59 23:59 Intake Total 1000 641.8 239.9 57.2 Output Total 1260 450 200 Balance 1000 -618.2 -210.1 -142.8 Meds/Results Medications: Active Medications Generic Name Dose Route Start Last Admin Trade Name Davidq PRN Reason Stop Dose Admin Aspirin 81 mg 11/16/24 09:00 11/18/24 08:57 Aspirin 81 Mg Chewable Tablet PO 81 mg DAILY DONNIE Administration Dextrose 12.5 gm 11/15/24 21:00 Dextrose 50% 25 Gm/50 Ml Syringe IV PUSH PRN PRN Hypoglycemia Protocol Docusate Sodium 100 mg 11/16/24 06:34 Docusate Sodium 100 Mg Capsule PO DAILY PRN constipation Ferrous Sulfate 325 mg 11/16/24 09:00 11/18/24 08:57 Ferrous Sulfate [address] BY MOUTH 325 mg DAILY DONNIE Administration Glucagon 1 mg 11/15/24 21:00 Glucagon For Inj 1 Mg Vial IM PRN PRN Hypoglycemia Protocol Glucose 15 gm 11/15/24 21:00 Glucose Oral Gel 15 Gm Of Glucse In 37.5 Gm Tube PO PRN PRN Hypoglycemia Protocol Heparin Sodium (Porcine) 4,000 units 11/15/24 19:56 11/18/24 06:08 Heparin Sodium 5,000 Units/Ml Vial IV PUSH 4,000 units PRN PRN Administration aPTT less than 55 seconds Heparin Sodium (Porcine) 2,000 units 11/15/24 19:56 Heparin Sodium 5,000 Units/Ml Vial IV PUSH PRN PRN aPTT 55 - 70 seconds Heparin Sodium/Dextrose 25,000 units in 250 mls @ 9 mls/hr 11/15/24 20:00 11/18/24 06:10 Heparin Sodium/D5w 100 Units/Ml IV CONT 900 units/hr .Q24H DONNIE 9 mls/hr Titration Protocol 900 UNITS/HR Dextrose 1,000 mls @ 100 mls/hr 11/15/24 21:00 Dextrose 5% 1,000 Ml IVPB PRN PRN Hypoglycemia Protocol Insulin Aspart 2 - 5 units 11/16/24 08:00 11/18/24 12:11 Insulin Aspart (*Bkc) 100 Units/Ml SUB-Q Not Given TIDWM DONNIE Protocol Levothyroxine Sodium 88 mcg 11/16/24 06:45 11/18/24 08:56 Levothyroxine Sodium 88 Mcg Tablet PO Not Given DAILY@0630 DONNIE Losartan Potassium 25 mg 11/16/24 09:00 11/18/24 08:57 Losartan Potassium 25 Mg Tablet PO 25 mg BID DONNIE Administration Metoprolol Tartrate 12.5 mg 11/16/24 09:00 11/18/24 08:57 Metoprolol Tartrate 12.5 Mg Tablet PO 12.5 mg Q12HR DONNIE Administration Multivitamins/Calcium 1 tablet 11/16/24 09:00 11/18/24 08:57 Therapeutic Multivitamins/Minerals Tab (*Bkc) PO 1 tablet DAILY DONNIE Administration Ondansetron HCl 4 mg 11/18/24 12:27 Ondansetron Inj 4 Mg/2 Ml Vial IV PUSH Q6H PRN Nausea And Vomiting Radiology Results: ITS Impressions Chest X-Ray 11/17/24 06:52 Impression: Moderate pulmonary edema pattern with small to moderate bilateral pleural effusions. Correlate clinically for pneumonia. Labs 11/18/24 04:46 11/18/24 04:46 Labs: Laboratory Results - last 24 hr 11/17/24 11/17/24 11/18/24 15:20 20:29 04:46 WBC 6.4 RBC 3.27 L Hgb 10.6 L Hct 33.0 L MCV 100.9 H MCH 32.4 MCHC 32.1 RDW 13.3 Plt Count 218 MPV 9.5 Immature Gran % (Auto) 0.3 Neut % (Auto) 68.6 Lymph % (Auto) 21.3 [place] % (Auto) 8.1 Eos % (Auto) 1.2 Baso % (Auto) 0.5 Lymph # (Auto) 1.37 [place] # (Auto) 0.5 Eos # (Auto) 0.1 Baso # (Auto) 0.0 Abs Immat Gran (auto) 0.02 Absolute Neuts (auto) 4.4 Absolute Nucleated RBC 0.000 Nucleated RBC % 0.0 APTT 31.4 Sodium 133 L Potassium 3.9 Chloride 105 Carbon Dioxide 19 L Anion Gap 9 BUN 14 Creatinine 0.57 L Estim Creat Clear Calc 60 Estimated GFR > 60 Glucose 98 POC Capillary Glucose 100 104 Calcium 8.3 L Phosphorus 3.2 Magnesium 2.4 H Total Bilirubin 0.8 AST 26 ALT 14 Alkaline Phosphatase 85 Total Protein 6.0 L Albumin 3.3 L 11/18/24 11/18/24 07:26 12:11 WBC RBC Hgb Hct MCV MCH MCHC RDW Plt Count MPV Immature Gran % (Auto) Neut % (Auto) Lymph % (Auto) [place] % (Auto) Eos % (Auto) Baso % (Auto) Lymph # (Auto) [place] # (Auto) Eos # (Auto) Baso # (Auto) Abs Immat Gran (auto) Absolute Neuts (auto) Absolute Nucleated RBC Nucleated RBC % APTT Sodium Potassium Chloride Carbon Dioxide Anion Gap BUN Creatinine Estim Creat Clear Calc Estimated GFR Glucose POC Capillary Glucose 111 H 89 Calcium Phosphorus Magnesium Total Bilirubin AST ALT Alkaline Phosphatase Total Protein Albumin ASA Classification/Sedation ASA Classification/Sedation ASA Class: IV Emergent: No Risks: Risks, benefits and alternatives explained and patient/family accepted plan for sedation. Patient re-evaluated immediately prior to sedation.
--- NOTE | 2024-11-18 13:07 | WPDCARDPROC ---
Cardiac Cath Procedure Note Date of procedure:: 11/18/24 Performing physician:: Rosi Cortez MD Indication:: NSTEMI Brief clinical history:: Katja Diaz is a 79-year-old female with past medical history of dementia, coronary artery disease status post PCI to LAD more than 10 years ago, moderate mitral regurgitation, moderate tricuspid regurgitation, hypertension, HFpEF, anemia, hypothyroidism, GERD, diabetes presented to the ER with chief complaint of sudden onset left-sided chest pain. She was noted to have an elevated troponin that peaked at 0.843 and a BNP of 9740. EKG showed sinus rhythm with sinus arrhythmia and nonspecific ST-T wave changes. She was started on nitro and heparin drips after which her chest pain resolved. Cardiology was consulted for further management of NSTEMI. Cardiac catheterization was planned to further evaluate the coronaries. Procedure Procedure performed:: Right radial artery access Left heart catheterization Selective right and left coronary angiogram Sedation/Medication given:: Fentanyl 50 mcg Versed 0.5 mg Sedation start time 10:10 a.m. Sedation end time 10:23 a.m. Access site:: Right radial artery Estimated blood loss:: 20 mL Procedure note:: Procedure note: Patient is brought to the cardiac grass farm laborer for angiogram and possible intervention. The risks, benefits, alternatives, and possible complications of this procedure was discussed, understood and accepted by the patient's daughter who is patient's HCPOA. Moderate sedation: I administered moderate sedation throughout the procedure. An independent trained provider pushed medications at my discretion and monitored the patient's level of consciousness and physiological status throughout under my supervision. [id number] time was provided for the entire procedure. Please refer to electronic medical record for total sedation doses provided. Intra service time: 13 minutes Catheters used for selective coronary angiograms: Six [place]ander JL 3.5 Six [place] JR4 Procedure technique: After informed consent was obtained, the patient was brought to the cardiac grass farm laborer and was placed in the supine position. The access site was prepped and draped in usual sterile manner. Right radial access was obtained using modified Seldinger technique. A 6 [place] Zealander sheath was inserted. 200 mcg of nitroglycerin was administered in the radial artery. 5000 units of heparin was administered IV. Angiography: The left coronary artery was selectively engaged using the 6 [place] JL 3.5 catheter. The RCA was selectively engaged using a 6 [place] JR4 catheter. The LV hemodynamics was obtained using the 6 [place] JR4 catheter. Hemodynamic data: Opening aortic pressure was 104/59/79 mm Hg. Closing aortic pressure 96/63/70 9 mm Hg. LVEDP 20 mm Hg. Findings:: Findings: 1. The left main coronary artery arises from the left coronary cusp and divides into the left anterior descending and left circumflex. The left main is angiographically free of significant disease. 2. The left anterior descending artery arises from the left main and it is a moderate caliber vessel extending down to the apex. There is 90% stenosis in the proximal LAD. There is 90% thrombotic stenosis in the stented segment of mid LAD with ALEXANDER 1 flow in the distal vessel. 3. The left circumflex artery arises from the left main and is a large sized anatomically dominant artery. There 90% stenosis in the ostial left circumflex. 4. The right coronary artery arises from the right coronary cusp and it is a very small caliber nondominant vessel angiographically free of significant disease. Conclusion:: Conclusion: 1. Obstructive 2 vessel coronary artery disease with 90 % ostial left circumflex stenosis, 90% proximal LAD stenosis, 90% thrombotic stenosis within prior stent in mid LAD with ALEXANDER 1 flow in distal LAD 2. NSTEMI secondary to thrombotic stenosis in mid LAD Assessment and Plan Assessment and plan (1) Non-STEMI (non-ST elevated myocardial infarction): Code(s): I21.4 - Non-ST elevation (NSTEMI) myocardial infarction Status: Acute (2) Elevated left ventricular end-diastolic pressure (LVEDP): Code(s): R94.30 - Abnormal result of cardiovascular function study, unspecified Status: Acute Plan 1. Obstructive 2 vessel coronary artery disease with 90% ostial left circumflex stenosis, 90% proximal LAD stenosis, 90% thrombotic stenosis within prior stent in mid LAD with ALEXANDER 1 flow in distal LAD 2. NSTEMI secondary to thrombotic stenosis in mid LAD-patient has onset of chest pain 3-4 days back 3. Acute on chronic heart failure: Echo shows new drop in LVEF to 35% 4. Valvular heart disease: Moderate to severe MR, moderate TR, moderate AR Plan: Recommend complex bifurcation PCI to proximal LAD and ostial LCX, PCI to mid LAD thrombotic stenosis with Impella support given complex anatomy, acute on chronic heart failure with elevated LVEDP of 20 mm Hg, echo shows new drop in LVEF to 35% and associated multiple valvular regurgitant disease. Though there is only ALEXANDER 1 flow in the LAD, given patient is chest pain free, she is electrically stable, SBP in the 90s to 100s range which is her baseline, she will be transferred to [facility] for PCI Aspirin 81 mg daily Second antiplatelet agent to be loaded at the time of her PCI Resume heparin drip after removal of TR band Avoid nitro drip given SBP in the 90s Continue statin Continue metoprolol and losartan
--- NOTE | 2024-11-18 13:21 | P.PNIM_ITS ---
Progress Note: A&P Assessment and Plan (1) Non-STEMI (non-ST elevated myocardial infarction): Code(s): I21.4 - Non-ST elevation (NSTEMI) myocardial infarction Status: Acute Assessment and Plan: NSTEMI in a patient with history of coronary disease status post stenting in the past. Her history of chest pain is not completely reliable as patient has dementia and some history was provided by patient's daughter. Patient does have elevated troponin and abnormal EKG Currently on heparin infusion aspirin Cozaar metoprolol Cardiology following the patient, 11/18: Coronary angiogram showed Obstructive 2 vessel coronary artery disease with 70-80% ostial left circumflex stenosis, 70% mid LAD stenosis, patent left circumflex stent the. Shore Worker is arranging for transfer to [facility] for high-risk PCI -discuss with knife setter grinder machine, will start heparin infusion 11/17/2024: Echocardiogram Summary 1. Left ventricular chamber dimension is mildly enlarged. 2. There is mildly increased left ventricular wall thickness. 3. Left ventricular systolic function is moderately reduced, estimated at 35-40%. 4. There is hypokinesis of the mid inferoseptum, anteroseptum. The apex is akinetic. 5. Right ventricular chamber dimension is normal. 6. Right ventricular systolic function is normal. 7. Left atrial chamber dimension is mildly enlarged. 8. There is moderate aortic valve regurgitation. 9. There is moderate to severe mitral valve regurgitation. 10. There is moderate tricuspid valve regurgitation. 11. Pulmonary hypertension, estimated pulmonary arterial systolic pressure is 47 mmHg. 12. Left pleural effusion present. (2) Type 2 diabetes mellitus with hyperglycemia: Qualifiers: Diabetes mellitus nursing home insulin use: without nursing home use Qualified Code(s): E11.65 - Type 2 diabetes mellitus with hyperglycemia Code(s): E11.65 - Type 2 diabetes mellitus with hyperglycemia Status: Acute Assessment and Plan: Continue Accu-Cheks and sliding scale insulin (3) CHF (congestive heart failure): Code(s): I50.9 - Heart failure, unspecified Status: Acute Assessment and Plan: Chest x-ray shows pulmonary edema,. Patient has bilateral crackles and lower extremity edema suggestive of CHF Echo as above Status post coronary angiogram, awaiting transfer to [facility] (4) Dementia: Qualifiers: Dementia type: Alzheimer's Alzheimer's disease onset: late onset Dementia severity: moderate Dementia behavioral or psychological symptom: without behavioral, psychotic, or mood disturbance or anxiety Qualified Code(s): G30.1 - Alzheimer's disease with late onset; F02.B0 - Dementia in other diseases classified elsewhere, moderate, without behavioral disturbance, psychotic disturbance, mood disturbance, and anxiety Code(s): F03.90 - Unspecified dementia, unspecified severity, without behavioral disturbance, psychotic disturbance, mood disturbance, and anxiety Status: Acute Assessment and Plan: Appears at baseline (5) Chest pain: Qualifiers: Chest pain type: chest pain due to myocardial ischemia Ischemic chest pain type: stable angina pectoris Qualified Code(s): I20.89 - Other forms of angina pectoris Code(s): R07.9 - Chest pain, unspecified Status: Acute Assessment and Plan: Her history of chest pain is not reliable but patient does have elevated troponin and abnormal EKG making diagnosis of NSTEMI. -11/18: Coronary angiogram showed Obstructive 2 vessel coronary artery disease with 70-80% ostial left circumflex stenosis, 70% mid LAD stenosis, patent left circumflex stent Patient was negative for influenza, RSV and SARS-CoV-2 PCR Plan DVT prophylaxis -heparin infusion Nutrition: NPO. Code Status - Full Code Due to a high probability of clinically significant, life threatening deterioration, the patient required my highest level of preparedness to intervene emergently and I personally spent this critical care time directly and personally managing the patient. This critical care time included obtaining a history; examining the patient; pulse oximetry; ordering and review of studies; arranging urgent treatment with development of a management plan; evaluation of patient's response to treatment; frequent reassessment; and discussions with other providers. It was exclusive of separately billable procedures and treating other patients and teaching time. Please see Assessment and Plan section and the rest of the note for further information on patient assessment and treatment This dictation may have been done utilizing a voice recognition system. Attempts have been made to correct errors. However, there may be uncorrected grammatical, spelling, and recognitions errors present. Subjective Date/time seen: 11/18/24 13:21 Interval history: 79-year-old female with past medical history of dementia, coronary artery disease status post PCI to LAD more than 10 years ago, moderate mitral regurg itation, moderate tricuspid regurgitation, hypertension, HFpEF, anemia, hypothyroidism, GERD, diabetes who presented to the ER along with her and daughter with chief complaint of sudden onset left-sided chest pain. Pain was substernal in nature and of intensity 8/10. In the ER, she was started on nitroglycerin and heparin drips. She was noted to have an elevated troponin that peaked at 0.843 and a BNP of 9740. EKG showed sinus rhythm with sinus arrhythmia and nonspecific ST-T wave changes. 11/18: Coronary angiogram showed Obstructive 2 vessel coronary artery disease with 70-80% ostial left circumflex stenosis, 70% mid LAD stenosis, patent left circumflex stent She is an intermediate Unit patient placed in the ICU post coronary angiogram. 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 Patient complains of back pain and finger pain on left hand. Denies any shortness of breath, chest pain at this time. Denies any nausea vomiting Review of Systems Review of Systems: All systems reviewed & are unremarkable except as noted in HPI and below Exam Narrative: General: Pt is alert awake and in NAD Lungs/Chest: Trachea central Clear BS B/L, bibasilar crackle, some pain on palpation and sternum Cardiac: RRR. Normal S1 S2. No murmurs Circulation: Pedal pulses are intact and symmetrical. Abdomen: Normal bowel sounds.. Soft. NT. ND. Extremities: No clubbing, cyanosis or bilateral lower extremity edema present. Right radial site has a TR band in place, patient able to squeeze her fingers with her right hand : Harris in place Neurologic: Follows commands. Moves all 4 extremities PERRL , alert, oriented to place only Skin: No Rash Objective Data Vital Signs Vital Signs: Vital Signs - 24 hr 11/17/24 14:00 11/17/24 15:56 11/17/24 16:00 Temperature 98.4 F Pulse Rate 86 99 Pulse Rate [Right Radial] Respiratory Rate 22 H Blood Pressure 106/65 Pulse Oximetry 96 96 Oxygen Delivery Room Air Oxygen Flow Rate 11/17/24 16:00 11/17/24 16:45 11/17/24 17:36 Temperature Pulse Rate 94 Pulse Rate [Right Radial] Respiratory Rate Blood Pressure Pulse Oximetry 88 L 96 Oxygen Delivery Nasal Cannula Nasal Cannula Oxygen Flow Rate 2 2 11/17/24 18:00 11/17/24 20:00 11/17/24 20:00 Temperature Pulse Rate 76 93 Pulse Rate [Right Radial] Respiratory Rate Blood Pressure Pulse Oximetry 96 Oxygen Delivery Nasal Cannula Oxygen Flow Rate 2 11/17/24 20:00 11/17/24 21:02 11/17/24 22:00 Temperature 97.8 F Pulse Rate 93 77 72 Pulse Rate [Right Radial] Respiratory Rate 21 H Blood Pressure 111/70 Pulse Oximetry 90 Oxygen Delivery Oxygen Flow Rate 11/18/24 00:00 11/18/24 00:00 11/18/24 00:13 Temperature 98.2 F Pulse Rate 103 H 100 Pulse Rate [Right Radial] Respiratory Rate 20 Blood Pressure 123/80 Pulse Oximetry 96 91 Oxygen Delivery Nasal Cannula Oxygen Flow Rate 2 11/18/24 02:27 11/18/24 03:41 11/18/24 04:00 Temperature Pulse Rate 80 80 Pulse Rate [Right Radial] Respiratory Rate Blood Pressure Pulse Oximetry 97 Oxygen Delivery Nasal Cannula Oxygen Flow Rate 2 11/18/24 06:02 11/18/24 06:31 11/18/24 07:57 Temperature 99.0 F 98.0 F Pulse Rate 83 60 69 Pulse Rate [Right Radial] Respiratory Rate 20 18 Blood Pressure 106/57 L 111/66 Pulse Oximetry 98 97 Oxygen Delivery Oxygen Flow Rate 11/18/24 08:57 11/18/24 11:45 11/18/24 12:00 Temperature 97.5 F L Pulse Rate 80 62 63 Pulse Rate [Right Radial] 63 Respiratory Rate 11 L 17 Blood Pressure 96/52 L 93/50 L Pulse Oximetry 92 93 Oxygen Delivery Oxygen Flow Rate 11/18/24 12:15 11/18/24 12:30 11/18/24 12:45 Temperature Pulse Rate 68 68 60 Pulse Rate [Right Radial] 68 68 60 Respiratory Rate 16 Blood Pressure 96/47 L 93/53 L 90/64 L Pulse Oximetry 92 Oxygen Delivery Oxygen Flow Rate 11/18/24 13:00 11/18/24 13:01 11/18/24 13:15 Temperature Pulse Rate 66 76 Pulse Rate [Right Radial] 66 68 76 Respiratory Rate 18 Blood Pressure 89/52 L 87/47 L Pulse Oximetry 95 95 Oxygen Delivery Oxygen Flow Rate Intake/Output Intake/Output: Intake & Output 11/15/24 11/16/24 11/17/24 11/18/24 23:59 23:59 23:59 23:59 Intake Total 1000 641.8 239.9 57.2 Output Total 1260 450 200 Balance 1000 -618.2 -210.1 -142.8 Meds/Results Medications: Active Medications Generic Name Dose Route Start Last Admin Trade Name Freq PRN Reason Stop Dose Admin Aspirin 81 mg 11/16/24 09:00 11/18/24 08:57 Aspirin 81 Mg Chewable Tablet PO 81 mg DAILY DONNIE Administration Dextrose 12.5 gm 11/15/24 21:00 Dextrose 50% 25 Gm/50 Ml Syringe IV PUSH PRN PRN Hypoglycemia Protocol Docusate Sodium 100 mg 11/16/24 06:34 Docusate Sodium 100 Mg Capsule PO DAILY PRN constipation Ferrous Sulfate 325 mg 11/16/24 09:00 11/18/24 08:57 Ferrous Sulfate [address] BY MOUTH 325 mg DAILY DONNIE Administration Glucagon 1 mg 11/15/24 21:00 Glucagon For Inj 1 Mg Vial IM PRN PRN Hypoglycemia Protocol Glucose 15 gm 11/15/24 21:00 Glucose Oral Gel 15 Gm Of Glucse In 37.5 Gm Tube PO PRN PRN Hypoglycemia Protocol Heparin Sodium (Porcine) 4,000 units 11/15/24 19:56 11/18/24 06:08 Heparin Sodium 5,000 Units/Ml Vial IV PUSH 4,000 units PRN PRN Administration aPTT less than 55 seconds Heparin Sodium (Porcine) 2,000 units 11/15/24 19:56 Heparin Sodium 5,000 Units/Ml Vial IV PUSH PRN PRN aPTT 55 - 70 seconds Heparin Sodium/Dextrose 25,000 units in 250 mls @ 9 mls/hr 11/15/24 20:00 11/18/24 06:10 Heparin Sodium/D5w 100 Units/Ml IV CONT 900 units/hr .Q24H DONNIE 9 mls/hr Titration Protocol 900 UNITS/HR Dextrose 1,000 mls @ 100 mls/hr 11/15/24 21:00 Dextrose 5% 1,000 Ml IVPB PRN PRN Hypoglycemia Protocol Insulin Aspart 2 - 5 units 11/16/24 08:00 11/18/24 12:11 Insulin Aspart (*Bkc) 100 Units/Ml SUB-Q Not Given TIDWM DONNIE Protocol Levothyroxine Sodium 88 mcg 11/16/24 06:45 11/18/24 08:56 Levothyroxine Sodium 88 Mcg Tablet PO Not Given DAILY@0630 [facility] Losartan Potassium 25 mg 11/16/24 09:00 11/18/24 08:57 Losartan Potassium 25 Mg Tablet PO 25 mg BID DONNIE Administration Metoprolol Tartrate 12.5 mg 11/16/24 09:00 11/18/24 08:57 Metoprolol Tartrate 12.5 Mg Tablet PO 12.5 mg Q12HR DONNIE Administration Multivitamins/Calcium 1 tablet 11/16/24 09:00 11/18/24 08:57 Therapeutic Multivitamins/Minerals Tab (*Bkc) PO 1 tablet DAILY DONNIE Administration Ondansetron HCl 4 mg 11/18/24 12:27 Ondansetron Inj 4 Mg/2 Ml Vial IV PUSH Q6H PRN Nausea And Vomiting Radiology Results: ITS Impressions Chest X-Ray 11/17/24 06:52 Impression: Moderate pulmonary edema pattern with small to moderate bilateral pleural effusions. Correlate clinically for pneumonia. Labs Labs: Laboratory Results - last 24 hr 11/17/24 11/17/24 11/18/24 15:20 20:29 04:46 WBC 6.4 RBC 3.27 L Hgb 10.6 L Hct 33.0 L MCV 100.9 H MCH 32.4 MCHC 32.1 RDW 13.3 Plt Count 218 MPV 9.5 Immature Gran % (Auto) 0.3 Neut % (Auto) 68.6 Lymph % (Auto) 21.3 Maverick % (Auto) 8.1 Eos % (Auto) 1.2 Baso % (Auto) 0.5 Lymph # (Auto) 1.37 [place]ick # (Auto) 0.5 Eos # (Auto) 0.1 Baso # (Auto) 0.0 Abs Immat Gran (auto) 0.02 Absolute Neuts (auto) 4.4 Absolute Nucleated RBC 0.000 Nucleated RBC % 0.0 APTT 31.4 Sodium 133 L Potassium 3.9 Chloride 105 Carbon Dioxide 19 L Anion Gap 9 BUN 14 Creatinine 0.57 L Estim Creat Clear Calc 60 Estimated GFR > 60 Glucose 98 POC Capillary Glucose 100 104 Calcium 8.3 L Phosphorus 3.2 Magnesium 2.4 H Total Bilirubin 0.8 AST 26 ALT 14 Alkaline Phosphatase 85 Total Protein 6.0 L Albumin 3.3 L 11/18/24 11/18/24 07:26 12:11 WBC RBC Hgb Hct MCV MCH MCHC RDW Plt Count MPV Immature Gran % (Auto) Neut % (Auto) Lymph % (Auto) Maverick % (Auto) Eos % (Auto) Baso % (Auto) Lymph # (Auto) Maverick # (Auto) Eos # (Auto) Baso # (Auto) Abs Immat Gran (auto) Absolute Neuts (auto) Absolute Nucleated RBC Nucleated RBC % APTT Sodium Potassium Chloride Carbon Dioxide Anion Gap BUN Creatinine Estim Creat Clear Calc Estimated GFR Glucose POC Capillary Glucose 111 H 89 Calcium Phosphorus Magnesium Total Bilirubin AST ALT Alkaline Phosphatase Total Protein Albumin
--- NOTE | 2024-11-18 13:21 | PM.PNCARD ---
Progress Note: A&P Assessment and Plan (1) Non-STEMI (non-ST elevated myocardial infarction): Code(s): I21.4 - Non-ST elevation (NSTEMI) myocardial infarction Status: Acute (2) Cardiomyopathy: Code(s): I42.9 - Cardiomyopathy, unspecified Status: Acute (3) CHF (congestive heart failure): Code(s): I50.9 - Heart failure, unspecified Status: Acute (4) Elevated left ventricular end-diastolic pressure (LVEDP): Code(s): R94.30 - Abnormal result of cardiovascular function study, unspecified Status: Acute (5) Moderate aortic regurgitation: Code(s): I35.1 - Nonrheumatic aortic (valve) insufficiency Status: Acute (6) Moderate mitral regurgitation: Code(s): I34.0 - Nonrheumatic mitral (valve) insufficiency Status: Acute (7) Moderate tricuspid regurgitation: Code(s): I07.1 - Rheumatic tricuspid insufficiency Status: Acute (8) Type 2 diabetes mellitus with hyperglycemia: Qualifiers: Diabetes mellitus penitentiary insulin use: without terminal gauger supervisor use Qualified Code(s): E11.65 - Type 2 diabetes mellitus with hyperglycemia Code(s): E11.65 - Type 2 diabetes mellitus with hyperglycemia Status: Acute Plan 1. Obstructive 2 vessel coronary artery disease with 90% ostial left circumflex stenosis, 90% proximal LAD stenosis, 90% thrombotic stenosis within prior stent in mid LAD with ALEXANDER 1 flow in distal LAD-patient without any chest pain, electrical instability, no ST elevations on EKG 2. NSTEMI secondary to thrombotic stenosis in mid LAD-patient has onset of chest pain 3-4 days back 3. Acute on chronic heart failure: Echo shows new drop in LVEF to 35% 4. Valvular heart disease: Moderate to severe MR, moderate TR, moderate AR 5. Type 2 diabetes mellitus Plan: -Recommend complex bifurcation PCI to proximal LAD and ostial LCX, PCI to mid LAD thrombotic stenosis with Impella support given complex anatomy, acute on chronic heart failure with elevated LVEDP of 20 mm Hg, echo shows new drop in LVEF to 35% and associated multiple valvular regurgitant disease. Though there is only ALEXANDER 1 flow in the LAD, patient is chest pain free, she is electrically stable, SBP in the 90s to 100s range which is her baseline, she will be transferred to higher level of care at [facility] for complex PCI -Continue Aspirin 81 mg daily -Second antiplatelet agent to be loaded at the time of her PCI -Resume heparin drip after removal of TR band -Avoid nitro drip given SBP in the 90s -Continue statin -Hold Metoprolol and losartan given low SBP in the 80s-90s range -Management of other medical issues per ICU team -Discussed the findings of cardiac catheterization and above recommendation with patient's and daughter who agree with the plan of care. A total of additional 45 minutes were spent in counseling the family and initiating transfer to [facility] Subjective Date/time seen: 11/18/24 13:21 Interval history: Katja Diaz is a 79-year-old female with past medical history of dementia, coronary artery disease status post PCI to LAD more than 10 years ago, moderate mitral regurgitation, moderate tricuspid regurgitation, hypertension, HFpEF, anemia, hypothyroidism, GERD, diabetes who presented to the ER with chief complaint of sudden onset left-sided chest pain. She was noted to have an elevated troponin that peaked at 0.843 and a BNP of 9740. EKG showed sinus rhythm with sinus arrhythmia and nonspecific ST-T wave changes. She was started on nitro and heparin drips after which her chest pain resolved. Cardiology was consulted for further management. Workup: Hemoglobin 11.2 Troponin peaked at 0.843 BNP 9740 LDL 56 EKG sinus rhythm with sinus arrhythmia, nonspecific ST-T wave changes TTE in 2018 showed LV ejection fraction of 60-65% and moderate MR and moderate TR TTE in 09/2024 showed LVEF of 58% and moderate MR and moderate AR Monitor in 09/2024 with average heart rate 65 beats per minute, low frequency ventricular ectopy, frequent supraventricular ectopy but generally in single beat form, no atrial fibrillation and no patient triggered events Catheterization in 2021 showed patent LAD stent and 60% stenosis of an ostial diagonal Interval history: Patient has dementia and hard to obtain a history. She denied any chest pain, shortness of breath, nausea, abdominal pain. She had a TTE and underwent cardiac catheterization this morning. Review of Systems Review of Systems: Complete review of systems was not performed as patient has dementia Exam Narrative: General: Alert oriented x3, no acute distress Neck: Supple, JVD + Chest: Bilaterally clear to auscultation, no rales or rhonchi Cardiac: S1, S2 +, regular rate, regular rhythm, no murmurs or rubs Extremities: Bilateral lower extremity edema 1+, no skin rash Neurologic: Alert and oriented x3, no focal neurological deficits Objective Data Vital Signs Vital Signs: Vital Signs - 24 hr 11/17/24 14:00 11/17/24 15:56 11/17/24 16:00 Temperature 36.9 C Pulse Rate 86 99 Pulse Rate [Right Radial] Respiratory Rate 22 H Blood Pressure 106/65 Pulse Oximetry 96 96 Oxygen Delivery Room Air Oxygen Flow Rate 11/17/24 16:00 11/17/24 16:45 11/17/24 17:36 Temperature Pulse Rate 94 Pulse Rate [Right Radial] Respiratory Rate Blood Pressure Pulse Oximetry 88 L 96 Oxygen Delivery Nasal Cannula Nasal Cannula Oxygen Flow Rate 2 2 11/17/24 18:00 11/17/24 20:00 11/17/24 20:00 Temperature Pulse Rate 76 93 Pulse Rate [Right Radial] Respiratory Rate Blood Pressure Pulse Oximetry 96 Oxygen Delivery Nasal Cannula Oxygen Flow Rate 2 11/17/24 20:00 11/17/24 21:02 11/17/24 22:00 Temperature 36.6 C Pulse Rate 93 77 72 Pulse Rate [Right Radial] Respiratory Rate 21 H Blood Pressure 111/70 Pulse Oximetry 90 Oxygen Delivery Oxygen Flow Rate 11/18/24 00:00 11/18/24 00:00 11/18/24 00:13 Temperature 36.8 C Pulse Rate 103 H 100 Pulse Rate [Right Radial] Respiratory Rate 20 Blood Pressure 123/80 Pulse Oximetry 96 91 Oxygen Delivery Nasal Cannula Oxygen Flow Rate 2 11/18/24 02:27 11/18/24 03:41 11/18/24 04:00 Temperature Pulse Rate 80 80 Pulse Rate [Right Radial] Respiratory Rate Blood Pressure Pulse Oximetry 97 Oxygen Delivery Nasal Cannula Oxygen Flow Rate 2 11/18/24 06:02 11/18/24 06:31 11/18/24 07:57 Temperature 37.2 C 36.7 C Pulse Rate 83 60 69 Pulse Rate [Right Radial] Respiratory Rate 20 18 Blood Pressure 106/57 L 111/66 Pulse Oximetry 98 97 Oxygen Delivery Oxygen Flow Rate 11/18/24 08:57 11/18/24 11:45 11/18/24 12:00 Temperature 36.4 C L Pulse Rate 80 62 63 Pulse Rate [Right Radial] 63 Respiratory Rate 11 L 17 Blood Pressure 96/52 L 93/50 L Pulse Oximetry 92 93 Oxygen Delivery Oxygen Flow Rate 11/18/24 12:15 11/18/24 12:30 11/18/24 12:45 Temperature Pulse Rate 68 68 60 Pulse Rate [Right Radial] 68 68 60 Respiratory Rate 16 Blood Pressure 96/47 L 93/53 L 90/64 L Pulse Oximetry 92 Oxygen Delivery Oxygen Flow Rate 11/18/24 13:00 11/18/24 13:01 11/18/24 13:15 Temperature Pulse Rate 66 76 Pulse Rate [Right Radial] 66 68 76 Respiratory Rate 18 Blood Pressure 89/52 L 87/47 L Pulse Oximetry 95 95 Oxygen Delivery Oxygen Flow Rate Intake/Output Intake/Output: Intake & Output 11/15/24 11/16/24 11/17/24 11/18/24 23:59 23:59 23:59 23:59 Intake Total 1000 641.8 239.9 57.2 Output Total 1260 450 200 Balance 1000 -618.2 -210.1 -142.8 Meds/Results Medications: Active Medications Generic Name Dose Route Start Last Admin Trade Name Freq PRN Reason Stop Dose Admin Aspirin 81 mg 11/16/24 09:00 11/18/24 08:57 Aspirin 81 Mg Chewable Tablet PO 81 mg DAILY DONNIE Administration Dextrose 12.5 gm 11/15/24 21:00 Dextrose 50% 25 Gm/50 Ml Syringe IV PUSH PRN PRN Hypoglycemia Protocol Docusate Sodium 100 mg 11/16/24 06:34 Docusate Sodium 100 Mg Capsule PO DAILY PRN constipation Ferrous Sulfate 325 mg 11/16/24 09:00 11/18/24 08:57 Ferrous Sulfate [address] BY MOUTH 325 mg DAILY DONNIE Administration Glucagon 1 mg 11/15/24 21:00 Glucagon For Inj 1 Mg Vial IM PRN PRN Hypoglycemia Protocol Glucose 15 gm 11/15/24 21:00 Glucose Oral Gel 15 Gm Of Glucse In 37.5 Gm Tube PO PRN PRN Hypoglycemia Protocol Heparin Sodium (Porcine) 4,000 units 11/15/24 19:56 11/18/24 06:08 Heparin Sodium 5,000 Units/Ml Vial IV PUSH 4,000 units PRN PRN Administration aPTT less than 55 seconds Heparin Sodium (Porcine) 2,000 units 11/15/24 19:56 Heparin Sodium 5,000 Units/Ml Vial IV PUSH PRN PRN aPTT 55 - 70 seconds Heparin Sodium/Dextrose 25,000 units in 250 mls @ 9 mls/hr 11/15/24 20:00 11/18/24 06:10 Heparin Sodium/D5w 100 Units/Ml IV CONT 900 units/hr .Q24H DONNIE 9 mls/hr Titration Protocol 900 UNITS/HR Dextrose 1,000 mls @ 100 mls/hr 11/15/24 21:00 Dextrose 5% 1,000 Ml IVPB PRN PRN Hypoglycemia Protocol Insulin Aspart 2 - 5 units 11/16/24 08:00 11/18/24 12:11 Insulin Aspart (*Bkc) 100 Units/Ml SUB-Q Not Given TIDWM [facility] Protocol Levothyroxine Sodium 88 mcg 11/16/24 06:45 11/18/24 08:56 Levothyroxine Sodium 88 Mcg Tablet PO Not Given DAILY@0630 DONNIE Losartan Potassium 25 mg 11/16/24 09:00 11/18/24 08:57 Losartan Potassium 25 Mg Tablet PO 25 mg BID DONNIE Administration Metoprolol Tartrate 12.5 mg 11/16/24 09:00 11/18/24 08:57 Metoprolol Tartrate 12.5 Mg Tablet PO 12.5 mg Q12HR DONNIE Administration Multivitamins/Calcium 1 tablet 11/16/24 09:00 11/18/24 08:57 Therapeutic Multivitamins/Minerals Tab (*Bkc) PO 1 tablet DAILY DONNIE Administration Ondansetron HCl 4 mg 11/18/24 12:27 Ondansetron Inj 4 Mg/2 Ml Vial IV PUSH Q6H PRN Nausea And Vomiting Radiology Results: ITS Impressions Chest X-Ray 11/17/24 06:52 Impression: Moderate pulmonary edema pattern with small to moderate bilateral pleural effusions. Correlate clinically for pneumonia. Labs Labs: Laboratory Results - last 24 hr 11/17/24 11/17/24 11/18/24 15:20 20:29 04:46 WBC 6.4 RBC 3.27 L Hgb 10.6 L Hct 33.0 L MCV 100.9 H MCH 32.4 MCHC 32.1 RDW 13.3 Plt Count 218 MPV 9.5 Immature Gran % (Auto) 0.3 Neut % (Auto) 68.6 Lymph % (Auto) 21.3 [place] % (Auto) 8.1 Eos % (Auto) 1.2 Baso % (Auto) 0.5 Lymph # (Auto) 1.37 [place] # (Auto) 0.5 Eos # (Auto) 0.1 Baso # (Auto) 0.0 Abs Immat Gran (auto) 0.02 Absolute Neuts (auto) 4.4 Absolute Nucleated RBC 0.000 Nucleated RBC % 0.0 APTT 31.4 Sodium 133 L Potassium 3.9 Chloride 105 Carbon Dioxide 19 L Anion Gap 9 BUN 14 Creatinine 0.57 L Estim Creat Clear Calc 60 Estimated GFR > 60 Glucose 98 POC Capillary Glucose 100 104 Calcium 8.3 L Phosphorus 3.2 Magnesium 2.4 H Total Bilirubin 0.8 AST 26 ALT 14 Alkaline Phosphatase 85 Total Protein 6.0 L Albumin 3.3 L 11/18/24 11/18/24 07:26 12:11 WBC RBC Hgb Hct MCV MCH MCHC RDW Plt Count MPV Immature Gran % (Auto) Neut % (Auto) Lymph % (Auto) [place] % (Auto) Eos % (Auto) Baso % (Auto) Lymph # (Auto) [place] # (Auto) Eos # (Auto) Baso # (Auto) Abs Immat Gran (auto) Absolute Neuts (auto) Absolute Nucleated RBC Nucleated RBC % APTT Sodium Potassium Chloride Carbon Dioxide Anion Gap BUN Creatinine Estim Creat Clear Calc Estimated GFR Glucose POC Capillary Glucose 111 H 89 Calcium Phosphorus Magnesium Total Bilirubin AST ALT Alkaline Phosphatase Total Protein Albumin
[2024-11-18] MEDS: LACTATED RINGERS 500 ML 999 ML IV CONT (14:50)
[2024-11-18] MEDS: HEPARIN SOD/D5W 100 UNITS/ML 25,000 UNITS/250 ML BAG 9 UNITS IV CONT (15:34)
[2024-11-18 17:25] LABS: Glucose Point of Care 82 mg/dl (65-105)
[2024-11-18 21:36] LABS: Glucose Point of Care 82 mg/dl (65-105)
[2024-11-18 22:16] LABS: Partial Thromboplastin Time 65.6 Seconds (22.3-36.8)
--- NOTE | 2024-11-18 22:16 | ECG_ITS ---
Test Date: 2024-11-18 22:18:46 Measurements Intervals [place] Rate: 116 P: 0 IN: 0 QRS: -7 QRSD: 102 T: 164 QT: 272 QTc: 379 Interpretive Statements ATRIAL FIBRILLATION WITH RAPID VENTRICULAR RESPONSE DELAYED PRECORDIAL R/S TRANSITION ST-T WAVE ABNORMALITY IN INF/HIGH LAT LEADS- CONSIDER ISCHEMIA BASELINE ARTIFACT- II, III, AVL, AVF ABNORMAL ECG Compared to ECG 11/18/2024 00:48:57 HEART RATE HAS INCREASED POSSIBLE ISCHEMIA NOW PRESENT Electronically Signed On 11-19-2024 07:00:34 [employer] by Faustino Díaz D.O.
[2024-11-18] MEDS: HEPARIN SODIUM 5,000 UNITS/ML VIAL 2000 UNITS IV PUSH (22:58)
[2024-11-18] MEDS: AMIODARONE 150 MG/D5W 100 ML 150 MG/100 ML BAG 600 MG IV CONT (23:15)
[2024-11-18] MEDS: AMIODARONE 360 MG/D5W 200 ML 360 MG/200 ML BAG 33.33 MG IV CONT (23:16)
[2024-11-19] VITALS (15 sets, daily range): BP systolic 85–111; BP diastolic 52–82; PULSE 66–783; RESP 15–26; TEMP 36.4–36.9; O2SAT 88–97
[2024-11-19 01:19] LABS: Glucose Point of Care 134 mg/dl (65-105)
[2024-11-19] MEDS: AMIODARONE 360 MG/D5W 200 ML 360 MG/200 ML BAG 16.67 MG IV CONT ×2 (05:03→17:14)
--- NOTE | 2024-11-19 05:09 | ECG_ITS ---
Test Date: 2024-11-19 05:20:39 Measurements Intervals [place] Rate: 79 P: 34 DC: 130 QRS: 16 QRSD: 97 T: 80 QT: 395 QTc: 454 Interpretive Statements SINUS RHYTHM NONSPECIFIC ST & T-WAVE ABNORMALITY- ANT/HIGH LAT LEADS BASELINE ARTIFACT- I, II, AVR, AVL, AVF BORDERLINE ECG Compared to ECG 11/18/2024 22:18:46 Atrial fibrillation no longer present Possible ischemia no longer present Electronically Signed On 11-19-2024 07:04:11 BULKER by Faustino Díaz D.O.
[2024-11-19] MEDS: DOCUSATE SODIUM 100 MG CAPSULE PO (05:15)
[2024-11-19 05:46] LABS: Basophils Percent Auto 0.3 % (0.2-1.2); Eosinophils Percent Auto 0.4 % (0-4.4); Hematocrit 35.2 % (37.0-47.0); Hemoglobin 11.2 g/dL (12.0-15.0); Immature Granulocyte Absolute 0.03 K/mm3 (0.00-0.031); Immature Granulocyte Percent A 0.4 % (0-0.5); Lymphocytes Absolute Auto 1.17 K/mm3 (0.9-3.2); Lymphocytes Percent Auto 15.4 % (18.3-44.2); Mean Corpuscular HGB Conc 31.8 g/dl (32-36); Mean Corpuscular Volume 100.6 fl (80-100); Mean Platelet Volume 9.6 fl (7.4-10.4); Monocytes Absolute Auto 0.6 K/mm3 (0.1-0.6); Monocytes Percent Auto 7.8 % (2.6-8.5); Neutrophils Absolute Auto 5.8 K/mm3 (1.3-6.7); Neutrophils Percent Auto 75.7 % (45.5-73.1); Platelet Count Result 246 k/mm3 (150-375); Red Cell Distribution Width 13.4 % (11.5-14.5); White Blood Count 7.6 K/mm3 (4.5-10.0)
[2024-11-19 05:57] LABS: Alanine Aminotransferase 17 U/L (6-35); Albumin Level 3.8 g/dL (3.5-5.1); Alkaline Phosphatase 91 U/L (38-126); Anion Gap 11 mmol/L (4-12); Aspartate Amino Transferase 31 U/L (14-36); Bilirubin,Total 0.6 mg/dL (0.2-1.3); Blood Urea Nitrogen 17 mg/dL (7-17); Calcium 8.4 mg/dL (8.4-10.2); Carbon Dioxide 20 mmol/L (22-30); Chloride 105 mmol/L (98-107); Estimated CRCL calculation 50 ml/min; Estimated Glomerular Filt Rate > 60; Glucose 117 mg/dL (65-110); Magnesium 2.2 mg/dL (1.6-2.3); Phosphorus 3.9 mg/dL (2.5-4.5); Potassium 4.2 mmol/L (3.4-5.0); Sodium 136 mmol/L (137-145)
[2024-11-19 06:04] LABS: Partial Thromboplastin Time 74.6 Seconds (22.3-36.8)
[2024-11-19 08:40] LABS: Glucose Point of Care 121 mg/dl (65-105)
[2024-11-19] MEDS: THERAPEUTIC MULTIVITAMINS/MINERALS TAB (*BKC) 1 TABLET PO (09:37)
[2024-11-19] MEDS: FERROUS SULFATE 325 MG TABLET DR BY MOUTH (09:37)
[2024-11-19] MEDS: ASPIRIN 81 MG CHEWABLE TABLET PO (09:37)
--- NOTE | 2024-11-19 09:54 | P.PNCA_ITS ---
Progress Note: A&P Assessment and Plan (1) Non-STEMI (non-ST elevated myocardial infarction): Code(s): I21.4 - Non-ST elevation (NSTEMI) myocardial infarction Status: Acute (2) Cardiomyopathy: Code(s): I42.9 - Cardiomyopathy, unspecified Status: Acute (3) CHF (congestive heart failure): Code(s): I50.9 - Heart failure, unspecified Status: Acute (4) Elevated left ventricular end-diastolic pressure (LVEDP): Code(s): R94.30 - Abnormal result of cardiovascular function study, unspecified Status: Acute (5) Moderate aortic regurgitation: Code(s): I35.1 - Nonrheumatic aortic (valve) insufficiency Status: Acute (6) Moderate mitral regurgitation: Code(s): I34.0 - Nonrheumatic mitral (valve) insufficiency Status: Acute (7) Moderate tricuspid regurgitation: Code(s): I07.1 - Rheumatic tricuspid insufficiency Status: Acute (8) Type 2 diabetes mellitus with hyperglycemia: Qualifiers: Diabetes mellitus usp insulin use: without lobsterman use Qualified Code(s): E11.65 - Type 2 diabetes mellitus with hyperglycemia Code(s): E11.65 - Type 2 diabetes mellitus with hyperglycemia Status: Acute Plan 1. Obstructive 2 vessel coronary artery disease with 90% ostial left circumflex stenosis, 90% proximal LAD stenosis, 90% thrombotic stenosis within prior stent in mid LAD with ALEXANDER 1 flow in distal LAD-patient without any chest pain, electrical instability, no ST elevations on EKG 2. NSTEMI secondary to thrombotic stenosis in mid LAD-patient has onset of chest pain 3-4 days back 3. Acute on chronic heart failure: Echo shows new drop in LVEF to 35% with regional wall motion abnormalities; LVEDP 20 mm Hg 4. Valvular heart disease: Moderate to severe MR, moderate TR, moderate AR 5. New AFib with RVR with rates in the 140s 6. Type 2 diabetes mellitus Plan: -awaiting transfer to [facility] for complex PCI; patient is chest pain free, she is electrically stable, SBP in the 90s -continue amiodarone drip. Her rates are better controlled this morning in the 70s. She is on heparin for anticoagulation -Continue Aspirin 81 mg daily. Second antiplatelet agent to be loaded at the time of her PCI. Continue heparin drip -Continue statin -Hold Metoprolol and losartan given low blood pressure. Unable to add any EGD MT for new cardiomyopathy given hypotension -Management of other medical issues per ICU team Subjective Date/time seen: 11/19/24 09:54 Interval history: Katja Diaz is a 79-year-old female with past medical history of dementia, coronary artery disease status post PCI to LAD more than 10 years ago, moderate mitral regurgitation, moderate tricuspid regurgitation, hypertension, HFpEF, anemia, hypothyroidism, GERD, diabetes who presented to the ER with chief complaint of sudden onset left-sided chest pain. She was noted to have an elevated troponin that peaked at 0.843 and a BNP of 9740. EKG showed sinus rhythm with sinus arrhythmia and nonspecific ST-T wave changes. She was started on nitro and heparin drips after which her chest pain resolved. Cardiology was consulted for further management. She underwent cardiac catheterization which showed 90% thrombotic stenosis in mid LAD with ALEXANDER 1 flow in distal vessel, 90% stenosis of ostial LCX and proximal LAD, non dominant RCA angiographically free of disease. She was chest pain-free and electrically stable and transfer to [place] was initiated for complex PCI with mechanical support. Workup: Hemoglobin 11.2 Troponin peaked at 0.843 BNP 9740 LDL 56 EKG sinus rhythm with sinus arrhythmia, nonspecific ST-T wave changes TTE in 2018 showed LV ejection fraction of 60-65% and moderate MR and moderate TR TTE in 09/2024 showed LVEF of 58% and moderate MR and moderate AR Monitor in 09/2024 with average heart rate 65 beats per minute, low frequency ventricular ectopy, frequent supraventricular ectopy but generally in single beat form, no atrial fibrillation and no patient triggered events Catheterization in 2021 showed patent LAD stent and 60% stenosis of an ostial diagonal Cardiac catheterization: 90% thrombotic stenosis in mid LAD with ALEXANDER 1 flow in distal vessel, 90% stenosis of ostial LCX and proximal LAD, non dominant RCA angiographically free of disease TTE this hospitalization: LVEF is depressed to 35-40% with regional wall motion abnormalities (hypokinesis of the mid inferoseptum and anteroseptum, akinetic apex), moderate to severe MR, moderate AR, moderate TR Interval history: Last night she had AFib with RVR with rates in the 140s. Amiodarone was started and her rates are better controlled in the 70s this morning. She was hypotensive with SBP in the 80s to 90s range and a map greater than 60. Review of Systems Review of Systems: Complete review of systems was not performed as patient has dementia Exam Narrative: General: Alert oriented x3, no acute distress Neck: Supple, JVD + Chest: Bilaterally clear to auscultation, no rales or rhonchi Cardiac: S1, S2 +, irregularly irregular rhythm, systolic murmur at apex, diastolic murmur best heard in the 2nd intercostal space Extremities: Bilateral lower extremity edema 1+, no skin rash Neurologic: Alert and oriented x3, no focal neurological deficits Objective Data Vital Signs Vital Signs: Vital Signs - 24 hr 11/18/24 11:45 11/18/24 12:00 11/18/24 12:00 Temperature 36.4 C L Pulse Rate 62 63 63 Pulse Rate [Right Radial] 63 Respiratory Rate 11 L 17 62 H Blood Pressure 96/52 L 93/50 L 93/50 L Pulse Oximetry 92 93 94 Oxygen Delivery Oxygen Flow Rate Fraction of Inspired Oxygen 11/18/24 12:00 11/18/24 12:15 11/18/24 12:30 Temperature Pulse Rate 63 68 68 Pulse Rate [Right Radial] 68 68 Respiratory Rate Blood Pressure 96/47 L 93/53 L Pulse Oximetry Oxygen Delivery Oxygen Flow Rate Fraction of Inspired Oxygen 11/18/24 12:45 11/18/24 13:00 11/18/24 13:01 Temperature Pulse Rate 60 66 Pulse Rate [Right Radial] 60 66 68 Respiratory Rate 16 18 Blood Pressure 90/64 L 89/52 L Pulse Oximetry 92 95 Oxygen Delivery Oxygen Flow Rate Fraction of Inspired Oxygen 11/18/24 13:15 11/18/24 13:30 11/18/24 13:45 Temperature Pulse Rate 76 69 66 Pulse Rate [Right Radial] 76 69 66 Respiratory Rate 18 18 Blood Pressure 100/53 L 92/52 L 93/46 L Pulse Oximetry 95 94 95 Oxygen Delivery Oxygen Flow Rate Fraction of Inspired Oxygen 11/18/24 14:00 11/18/24 14:00 11/18/24 14:15 Temperature Pulse Rate 68 68 67 Pulse Rate [Right Radial] 66 66 Respiratory Rate 15 18 Blood Pressure 88/54 L 90/62 L Pulse Oximetry 95 96 Oxygen Delivery Oxygen Flow Rate Fraction of Inspired Oxygen 11/18/24 14:30 11/18/24 14:45 11/18/24 15:00 Temperature Pulse Rate 71 68 66 Pulse Rate [Right Radial] 66 66 66 Respiratory Rate 21 H Blood Pressure 104/57 L 92/48 L 114/65 Pulse Oximetry 95 97 97 Oxygen Delivery Oxygen Flow Rate Fraction of Inspired Oxygen 11/18/24 15:15 11/18/24 15:30 11/18/24 16:00 Temperature Pulse Rate 66 65 Pulse Rate [Right Radial] 66 66 Respiratory Rate 18 Blood Pressure 99/47 L 83/61 L Pulse Oximetry 96 96 Oxygen Delivery Room Air Oxygen Flow Rate Fraction of Inspired Oxygen 11/18/24 16:00 11/18/24 16:00 11/18/24 16:00 Temperature 36.5 C Pulse Rate 74 68 70 Pulse Rate [Right Radial] Respiratory Rate 21 H 21 H Blood Pressure 96/51 L 96/51 L Pulse Oximetry 96 96 Oxygen Delivery Oxygen Flow Rate Fraction of Inspired Oxygen 11/18/24 16:15 11/18/24 17:00 11/18/24 18:00 Temperature Pulse Rate 71 74 72 Pulse Rate [Right Radial] 66 74 Respiratory Rate 22 H 20 Blood Pressure 101/55 L 109/56 L Pulse Oximetry 96 95 Oxygen Delivery Oxygen Flow Rate Fraction of Inspired Oxygen 11/18/24 20:00 11/18/24 20:00 11/18/24 20:00 Temperature 37.0 C Pulse Rate 78 78 Pulse Rate [Right Radial] Respiratory Rate 19 Blood Pressure 113/75 Pulse Oximetry 94 Oxygen Delivery Room Air Oxygen Flow Rate Fraction of Inspired Oxygen 11/18/24 20:21 11/18/24 22:00 11/18/24 22:50 Temperature Pulse Rate 92 116 H Pulse Rate [Right Radial] Respiratory Rate Blood Pressure Pulse Oximetry 94 Oxygen Delivery Room Air Oxygen Flow Rate Fraction of Inspired Oxygen 21 11/18/24 23:15 11/18/24 23:16 11/19/24 00:00 Temperature Pulse Rate 123 H 123 H Pulse Rate [Right Radial] Respiratory Rate Blood Pressure 112/70 112/70 Pulse Oximetry 97 Oxygen Delivery Nasal Cannula Oxygen Flow Rate 2 Fraction of Inspired Oxygen 11/19/24 00:00 11/19/24 00:00 11/19/24 00:00 Temperature 36.7 C Pulse Rate 80 80 82 Pulse Rate [Right Radial] Respiratory Rate 24 H Blood Pressure 89/63 L 89/63 L Pulse Oximetry 92 Oxygen Delivery Oxygen Flow Rate Fraction of Inspired Oxygen 11/19/24 02:00 11/19/24 02:00 11/19/24 04:00 Temperature Pulse Rate 80 83 Pulse Rate [Right Radial] Respiratory Rate Blood Pressure 92/64 L Pulse Oximetry 93 Oxygen Delivery Nasal Cannula Oxygen Flow Rate 2 Fraction of Inspired Oxygen 11/19/24 04:00 11/19/24 04:00 11/19/24 04:00 Temperature Pulse Rate 82 82 82 Pulse Rate [Right Radial] Respiratory Rate 15 Blood Pressure 94/68 L 94/68 L Pulse Oximetry 95 Oxygen Delivery Oxygen Flow Rate Fraction of Inspired Oxygen 11/19/24 05:03 11/19/24 06:00 11/19/24 06:00 Temperature Pulse Rate 84 75 75 Pulse Rate [Right Radial] Respiratory Rate Blood Pressure 99/68 L 100/58 L Pulse Oximetry Oxygen Delivery Oxygen Flow Rate Fraction of Inspired Oxygen 11/19/24 08:00 Temperature 36.4 C L Pulse Rate 67 Pulse Rate [Right Radial] Respiratory Rate 19 Blood Pressure 85/52 L Pulse Oximetry 94 Oxygen Delivery Oxygen Flow Rate Fraction of Inspired Oxygen Intake/Output Intake/Output: Intake & Output 11/16/24 11/17/24 11/18/24 11/19/24 23:59 23:59 23:59 23:59 Intake Total 641.8 239.9 208.7 206.9 Output Total 1260 450 200 250 Balance -618.2 -210.1 8.7 -43.1 Meds/Results Medications: Active Medications Generic Name Dose Route Start Last Admin Trade Name Freq PRN Reason Stop Dose Admin Aspirin 81 mg 11/16/24 09:00 11/19/24 09:37 Aspirin 81 Mg Chewable Tablet PO 81 mg DAILY DONNIE Administration Dextrose 12.5 gm 11/15/24 21:00 Dextrose 50% 25 Gm/50 Ml Syringe IV PUSH PRN PRN Hypoglycemia Protocol Docusate Sodium 100 mg 11/16/24 06:34 11/19/24 05:15 Docusate Sodium 100 Mg Capsule PO 100 mg DAILY PRN Administration constipation Ferrous Sulfate 325 mg 11/16/24 09:00 11/19/24 09:37 Ferrous Sulfate [address] BY MOUTH 325 mg DAILY DONNIE Administration Glucagon 1 mg 11/15/24 21:00 Glucagon For Inj 1 Mg Vial IM PRN PRN Hypoglycemia Protocol Glucose 15 gm 11/15/24 21:00 Glucose Oral Gel 15 Gm Of Glucse In 37.5 Gm Tube PO PRN PRN Hypoglycemia Protocol Heparin Sodium (Porcine) 4,000 units 11/15/24 19:56 11/18/24 06:08 Heparin Sodium 5,000 Units/Ml Vial IV PUSH 4,000 units PRN PRN Administration aPTT less than 55 seconds Heparin Sodium (Porcine) 2,000 units 11/15/24 19:56 11/18/24 22:58 Heparin Sodium 5,000 Units/Ml Vial IV PUSH 2,000 units PRN PRN Administration aPTT 55 - 70 seconds Heparin Sodium/Dextrose 25,000 units in 250 mls @ 10 mls/hr 11/15/24 20:00 11/18/24 23:00 Heparin Sodium/D5w 100 Units/Ml IV CONT 1,000 units/hr .Q24H DONNIE 10 mls/hr Titration Protocol 1,000 UNITS/HR Dextrose 1,000 mls @ 100 mls/hr 11/15/24 21:00 Dextrose 5% 1,000 Ml IVPB PRN PRN Hypoglycemia Protocol Amiodarone HCl/Dextrose 360 mg in 200 mls @ 16.667 mls/hr 11/19/24 04:54 11/19/24 06:00 Nexterone 360 Mg/D5w 200 Ml IV CONT 0.5 mg/min .Q12H DONNIE 16.67 mls/hr Infusion 0.5 MG/MIN Insulin Aspart 2 - 5 units 11/19/24 06:00 11/19/24 06:53 Insulin Aspart (*Bkc) 100 Units/Ml SUB-Q Not Given Q6HR [facility] Protocol Levothyroxine Sodium 88 mcg 11/16/24 06:45 11/19/24 04:10 Levothyroxine Sodium 88 Mcg Tablet PO Not Given DAILY@0630 DONNIE Losartan Potassium 25 mg 11/16/24 09:00 11/18/24 16:58 Losartan Potassium 25 Mg Tablet PO Not Given BID DONNIE Metoprolol Tartrate 12.5 mg 11/16/24 09:00 11/18/24 22:50 Metoprolol Tartrate 12.5 Mg Tablet PO 12.5 mg Q12HR DONNIE Administration Multivitamins/Calcium 1 tablet 11/16/24 09:00 11/19/24 09:37 Therapeutic Multivitamins/Minerals Tab (*Bkc) PO 1 tablet DAILY DONNIE Administration Ondansetron HCl 4 mg 11/18/24 12:27 Ondansetron Inj 4 Mg/2 Ml Vial IV PUSH Q6H PRN Nausea And Vomiting Radiology Results: ITS Impressions Chest X-Ray 11/17/24 06:52 Impression: Moderate pulmonary edema pattern with small to moderate bilateral pleural effusions. Correlate clinically for pneumonia. Labs Labs: Laboratory Results - last 24 hr 11/18/24 11/18/24 11/18/24 12:11 17:22 21:16 WBC RBC Hgb Hct MCV MCH MCHC RDW Plt Count MPV Immature Gran % (Auto) Neut % (Auto) Lymph % (Auto) [place] % (Auto) Eos % (Auto) Baso % (Auto) Lymph # (Auto) [place] # (Auto) Eos # (Auto) Baso # (Auto) Abs Immat Gran (auto) Absolute Neuts (auto) Absolute Nucleated RBC Nucleated RBC % APTT Sodium Potassium Chloride Carbon Dioxide Anion Gap BUN Creatinine Estim Creat Clear Calc Estimated GFR Glucose POC Capillary Glucose 89 82 82 Calcium Phosphorus Magnesium Total Bilirubin AST ALT Alkaline Phosphatase Total Protein Albumin 11/18/24 11/19/24 11/19/24 21:56 00:51 05:32 WBC 7.6 RBC 3.50 L Hgb 11.2 L Hct 35.2 L MCV 100.6 H MCH 32.0 MCHC 31.8 L RDW 13.4 Plt Count 246 MPV 9.6 Immature Gran % (Auto) 0.4 Neut % (Auto) 75.7 H Lymph % (Auto) 15.4 L [place] % (Auto) 7.8 Eos % (Auto) 0.4 Baso % (Auto) 0.3 Lymph # (Auto) 1.17 [place] # (Auto) 0.6 Eos # (Auto) 0.0 Baso # (Auto) 0.0 Abs Immat Gran (auto) 0.03 Absolute Neuts (auto) 5.8 Absolute Nucleated RBC 0.000 Nucleated RBC % 0.0 APTT 65.6 H 74.6 H Sodium 136 L Potassium 4.2 Chloride 105 Carbon Dioxide 20 L Anion Gap 11 BUN 17 Creatinine 0.60 L Estim Creat Clear Calc 50 Estimated GFR > 60 Glucose 117 H POC Capillary Glucose 134 H Calcium 8.4 Phosphorus 3.9 Magnesium 2.2 Total Bilirubin 0.6 AST 31 ALT 17 Alkaline Phosphatase 91 Total Protein 7.0 Albumin 3.8 11/19/24 08:37 WBC RBC Hgb Hct MCV MCH MCHC RDW Plt Count MPV Immature Gran % (Auto) Neut % (Auto) Lymph % (Auto) [place] % (Auto) Eos % (Auto) Baso % (Auto) Lymph # (Auto) [place] # (Auto) Eos # (Auto) Baso # (Auto) Abs Immat Gran (auto) Absolute Neuts (auto) Absolute Nucleated RBC Nucleated RBC % APTT Sodium Potassium Chloride Carbon Dioxide Anion Gap BUN Creatinine Estim Creat Clear Calc Estimated GFR Glucose POC Capillary Glucose 121 H Calcium Phosphorus Magnesium Total Bilirubin AST ALT Alkaline Phosphatase Total Protein Albumin
[2024-11-19 11:39] LABS: Partial Thromboplastin Time 80.5 Seconds (22.3-36.8)
--- NOTE | 2024-11-19 12:05 | P.PNIM_ITS ---
Progress Note: A&P Assessment and Plan (1) Non-STEMI (non-ST elevated myocardial infarction): Code(s): I21.4 - Non-ST elevation (NSTEMI) myocardial infarction Status: Acute Assessment and Plan: NSTEMI in a patient with history of coronary disease status post stenting in the past. Her history of chest pain is not completely reliable as patient has dementia and some history was provided by patient's daughter. Pain was substernal in nature and of intensity 8/10. In the ER, she was started on nitroglycerin and heparin drips. She was noted to have an elevated troponin that peaked at 0.843 and a BNP of 9740. EKG showed sinus rhythm with sinus arrhythmia and nonspecific ST-T wave changes. 11/18: Coronary angiogram showed obstructive 2 vessel coronary artery disease with 70-80% ostial left circumflex stenosis, 70% mid LAD stenosis, patent left circumflex stent Echo showing LV systolic function reduced with EF of 35-40%, hypokinesis of the mid inferior septum and anterior septum, akinetic apex, moderate AI, moderate- severe MR, moderate TR and pulmonary hypertension. Plan to transfer to [facility] for high risk PCI. Currently on heparin infusion and aspirin. Cozaar and metoprolol on hold Cardiology following the patient, (2) Type 2 diabetes mellitus with hyperglycemia: Qualifiers: Diabetes mellitus assistant terminal manager insulin use: without assistant terminal manager use Qualified Code(s): E11.65 - Type 2 diabetes mellitus with hyperglycemia Code(s): E11.65 - Type 2 diabetes mellitus with hyperglycemia Status: Acute Assessment and Plan: The patient's blood glucose was reviewed on 11/19 Glucose remains well controlled. Continue AccuCheks covering with sliding scale. Hypoglycemia protocol available as needed. Continue to monitor (3) CHF (congestive heart failure): Code(s): I50.9 - Heart failure, unspecified Status: Acute Assessment and Plan: Chest x-ray shows pulmonary edema,. Patient has bilateral crackles and lower extremity edema suggestive of CHF Echo as above Received Lasix IV x1 on 11/16 Status post coronary angiogram, awaiting transfer to [facility] (4) Dementia: Qualifiers: Alzheimer's disease onset: late onset Dementia behavioral or psychological symptom: without behavioral, psychotic, or mood disturbance or anxiety Dementia severity: moderate Dementia type: Alzheimer's Qualified Code(s): G30.1 - Alzheimer's disease with late onset; F02.B0 - Dementia in other diseases classified elsewhere, moderate, without behavioral disturbance, psychotic disturbance, mood disturbance, and anxiety Code(s): F03.90 - Unspecified dementia, unspecified severity, without behavioral disturbance, psychotic disturbance, mood disturbance, and anxiety Status: Acute Assessment and Plan: Stable. Not on treatment for dementia. (5) Chest pain: Qualifiers: Chest pain type: chest pain due to myocardial ischemia Ischemic chest pain type: stable angina pectoris Qualified Code(s): I20.89 - Other forms of angina pectoris Code(s): R07.9 - Chest pain, unspecified Status: Acute Assessment and Plan: As above. Patient was negative for influenza, RSV and SARS-CoV-2 PCR Plan DVT prophylaxis -heparin infusion Nutrition: Diabetic diet Code Status - Full Code Subjective Date/time seen: 11/19/24 12:05 Interval history: 79-year-old female with past medical history of dementia, CAD status post PCI to LAD more than 10 years ago, moderate mitral regurgitation, moderate tricuspid regurgitation, HTN, HFpEF, anemia, hypothyroidism, GERD, and DM who presented to the ER along with her and daughter with chief complaint of sudden onset left-sided chest pain. Assuming care. Chart reviewed. Patient is alert but confused and unable to provide a history. Review of Systems Review of Systems: ROS unobtainable: Yes unobtainable due to mental status Exam Narrative: AF 97.5 103/64 67 19 94% 2L Gen - NARD Chest -distant breath sounds bilaterally. CV - RRR S1/S2. Telemetry showing normal sinus rhythm Abd - Soft, NT/ND, Positive BS Ext - No pedal edema. 2+ DP pulses. Neuro -alert but confused. Psych - Nml mood and affect Skin - Warm and dry Objective Data Vital Signs Vital Signs: Vital Signs - 24 hr 11/18/24 12:15 11/18/24 12:30 11/18/24 12:45 Temperature Pulse Rate 68 68 60 Pulse Rate [Right Radial] 68 68 60 Respiratory Rate 16 Blood Pressure 96/47 L 93/53 L 90/64 L Pulse Oximetry 92 Oxygen Delivery Oxygen Flow Rate Fraction of Inspired Oxygen 11/18/24 13:00 11/18/24 13:01 11/18/24 13:15 Temperature Pulse Rate 66 76 Pulse Rate [Right Radial] 66 68 76 Respiratory Rate 18 Blood Pressure 89/52 L 100/53 L Pulse Oximetry 95 95 Oxygen Delivery Oxygen Flow Rate Fraction of Inspired Oxygen 11/18/24 13:30 11/18/24 13:45 11/18/24 14:00 Temperature Pulse Rate 69 66 68 Pulse Rate [Right Radial] 69 66 Respiratory Rate 18 18 Blood Pressure 92/52 L 93/46 L Pulse Oximetry 94 95 Oxygen Delivery Oxygen Flow Rate Fraction of Inspired Oxygen 11/18/24 14:00 11/18/24 14:15 11/18/24 14:30 Temperature Pulse Rate 68 67 71 Pulse Rate [Right Radial] 66 66 66 Respiratory Rate 15 18 21 H Blood Pressure 88/54 L 90/62 L 104/57 L Pulse Oximetry 95 96 95 Oxygen Delivery Oxygen Flow Rate Fraction of Inspired Oxygen 11/18/24 14:45 11/18/24 15:00 11/18/24 15:15 Temperature Pulse Rate 68 66 66 Pulse Rate [Right Radial] 66 66 66 Respiratory Rate Blood Pressure 92/48 L 114/65 99/47 L Pulse Oximetry 97 97 96 Oxygen Delivery Oxygen Flow Rate Fraction of Inspired Oxygen 11/18/24 15:30 11/18/24 16:00 11/18/24 16:00 Temperature Pulse Rate 65 74 Pulse Rate [Right Radial] 66 Respiratory Rate 18 Blood Pressure 83/61 L Pulse Oximetry 96 Oxygen Delivery Room Air Oxygen Flow Rate Fraction of Inspired Oxygen 11/18/24 16:00 11/18/24 16:00 11/18/24 16:15 Temperature 97.7 F Pulse Rate 68 70 71 Pulse Rate [Right Radial] 66 Respiratory Rate 21 H 21 H 22 H Blood Pressure 96/51 L 96/51 L 101/55 L Pulse Oximetry 96 96 96 Oxygen Delivery Oxygen Flow Rate Fraction of Inspired Oxygen 11/18/24 17:00 11/18/24 18:00 11/18/24 20:00 Temperature Pulse Rate 74 72 Pulse Rate [Right Radial] 74 Respiratory Rate 20 Blood Pressure 109/56 L Pulse Oximetry 95 Oxygen Delivery Room Air Oxygen Flow Rate Fraction of Inspired Oxygen 11/18/24 20:00 11/18/24 20:00 11/18/24 20:21 Temperature 98.6 F Pulse Rate 78 78 Pulse Rate [Right Radial] Respiratory Rate 19 Blood Pressure 113/75 Pulse Oximetry 94 94 Oxygen Delivery Room Air Oxygen Flow Rate Fraction of Inspired Oxygen 21 11/18/24 22:00 11/18/24 22:50 11/18/24 23:15 Temperature Pulse Rate 92 116 H 123 H Pulse Rate [Right Radial] Respiratory Rate Blood Pressure 112/70 Pulse Oximetry Oxygen Delivery Oxygen Flow Rate Fraction of Inspired Oxygen 11/18/24 23:16 11/19/24 00:00 11/19/24 00:00 Temperature Pulse Rate 123 H 80 Pulse Rate [Right Radial] Respiratory Rate Blood Pressure 112/70 Pulse Oximetry 97 Oxygen Delivery Nasal Cannula Oxygen Flow Rate 2 Fraction of Inspired Oxygen 11/19/24 00:00 11/19/24 00:00 11/19/24 02:00 Temperature 98.0 F Pulse Rate 80 82 80 Pulse Rate [Right Radial] Respiratory Rate 24 H Blood Pressure 89/63 L 89/63 L Pulse Oximetry 92 Oxygen Delivery Oxygen Flow Rate Fraction of Inspired Oxygen 11/19/24 02:00 11/19/24 04:00 11/19/24 04:00 Temperature Pulse Rate 83 82 Pulse Rate [Right Radial] Respiratory Rate Blood Pressure 92/64 L Pulse Oximetry 93 Oxygen Delivery Nasal Cannula Oxygen Flow Rate 2 Fraction of Inspired Oxygen 11/19/24 04:00 11/19/24 04:00 11/19/24 05:03 Temperature Pulse Rate 82 82 84 Pulse Rate [Right Radial] Respiratory Rate 15 Blood Pressure 94/68 L 94/68 L 99/68 L Pulse Oximetry 95 Oxygen Delivery Oxygen Flow Rate Fraction of Inspired Oxygen 11/19/24 06:00 11/19/24 06:00 11/19/24 08:00 Temperature 97.5 F L Pulse Rate 75 75 67 Pulse Rate [Right Radial] Respiratory Rate 19 Blood Pressure 100/58 L 85/52 L Pulse Oximetry 94 Oxygen Delivery Oxygen Flow Rate Fraction of Inspired Oxygen 11/19/24 08:00 Temperature Pulse Rate 67 Pulse Rate [Right Radial] Respiratory Rate Blood Pressure 103/64 Pulse Oximetry Oxygen Delivery Oxygen Flow Rate Fraction of Inspired Oxygen Intake/Output Intake/Output: Intake & Output 11/16/24 11/17/24 11/18/24 11/19/24 23:59 23:59 23:59 23:59 Intake Total 641.8 239.9 208.7 370.5 Output Total 1260 450 200 250 Balance -618.2 -210.1 8.7 120.5 Meds/Results Medications: Active Medications Generic Name Dose Route Start Last Admin Trade Name Freq PRN Reason Stop Dose Admin Aspirin 81 mg 11/16/24 09:00 11/19/24 09:37 Aspirin 81 Mg Chewable Tablet PO 81 mg DAILY DONNIE Administration Dextrose 12.5 gm 11/15/24 21:00 Dextrose 50% 25 Gm/50 Ml Syringe IV PUSH PRN PRN Hypoglycemia Protocol Docusate Sodium 100 mg 11/16/24 06:34 11/19/24 05:15 Docusate Sodium 100 Mg Capsule PO 100 mg DAILY PRN Administration constipation Ferrous Sulfate 325 mg 11/16/24 09:00 11/19/24 09:37 Ferrous Sulfate [address] BY MOUTH 325 mg DAILY DONNIE Administration Glucagon 1 mg 11/15/24 21:00 Glucagon For Inj 1 Mg Vial IM PRN PRN Hypoglycemia Protocol Glucose 15 gm 11/15/24 21:00 Glucose Oral Gel 15 Gm Of Glucse In 37.5 Gm Tube PO PRN PRN Hypoglycemia Protocol Heparin Sodium (Porcine) 4,000 units 11/15/24 19:56 11/18/24 06:08 Heparin Sodium 5,000 Units/Ml Vial IV PUSH 4,000 units PRN PRN Administration aPTT less than 55 seconds Heparin Sodium (Porcine) 2,000 units 11/15/24 19:56 11/18/24 22:58 Heparin Sodium 5,000 Units/Ml Vial IV PUSH 2,000 units PRN PRN Administration aPTT 55 - 70 seconds Heparin Sodium/Dextrose 25,000 units in 250 mls @ 10 mls/hr 11/15/24 20:00 11/19/24 12:02 Heparin Sodium/D5w 100 Units/Ml IV CONT 1,000 units/hr .Q24H DONNIE 10 mls/hr Titration Protocol 1,000 UNITS/HR Dextrose 1,000 mls @ 100 mls/hr 11/15/24 21:00 Dextrose 5% 1,000 Ml IVPB PRN PRN Hypoglycemia Protocol Amiodarone HCl/Dextrose 360 mg in 200 mls @ 16.667 mls/hr 11/19/24 04:54 11/19/24 08:00 Nexterone 360 Mg/D5w 200 Ml IV CONT 0.5 mg/min .Q12H DONNIE 16.67 mls/hr Infusion 0.5 MG/MIN Insulin Aspart 2 - 5 units 11/19/24 06:00 11/19/24 06:53 Insulin Aspart (*Bkc) 100 Units/Ml SUB-Q Not Given Q6HR PENDING SALE TO [facility] Protocol Levothyroxine Sodium 88 mcg 11/16/24 06:45 11/19/24 04:10 Levothyroxine Sodium 88 Mcg Tablet PO Not Given DAILY@0630 PENDING SALE TO [facility] Losartan Potassium 25 mg 11/16/24 09:00 11/18/24 16:58 Losartan Potassium 25 Mg Tablet PO Not Given BID DONNIE Metoprolol Tartrate 12.5 mg 11/16/24 09:00 11/18/24 22:50 Metoprolol Tartrate 12.5 Mg Tablet PO 12.5 mg Q12HR DONNIE Administration Multivitamins/Calcium 1 tablet 11/16/24 09:00 11/19/24 09:37 Therapeutic Multivitamins/Minerals Tab (*Bkc) PO 1 tablet DAILY DONNIE Administration Ondansetron HCl 4 mg 11/18/24 12:27 Ondansetron Inj 4 Mg/2 Ml Vial IV PUSH Q6H PRN Nausea And Vomiting Radiology Results: ITS Impressions Chest X-Ray 11/17/24 06:52 Impression: Moderate pulmonary edema pattern with small to moderate bilateral pleural effusions. Correlate clinically for pneumonia. Labs Labs: Laboratory Results - last 24 hr 11/18/24 11/18/24 11/18/24 12:11 17:22 21:16 WBC RBC Hgb Hct MCV MCH MCHC RDW Plt Count MPV Immature Gran % (Auto) Neut % (Auto) Lymph % (Auto) [place] % (Auto) Eos % (Auto) Baso % (Auto) Lymph # (Auto) [place] # (Auto) Eos # (Auto) Baso # (Auto) Abs Immat Gran (auto) Absolute Neuts (auto) Absolute Nucleated RBC Nucleated RBC % APTT Sodium Potassium Chloride Carbon Dioxide Anion Gap BUN Creatinine Estim Creat Clear Calc Estimated GFR Glucose POC Capillary Glucose 89 82 82 Calcium Phosphorus Magnesium Total Bilirubin AST ALT Alkaline Phosphatase Total Protein Albumin 11/18/24 11/19/24 11/19/24 21:56 00:51 05:32 WBC 7.6 RBC 3.50 L Hgb 11.2 L Hct 35.2 L MCV 100.6 H MCH 32.0 MCHC 31.8 L RDW 13.4 Plt Count 246 MPV 9.6 Immature Gran % (Auto) 0.4 Neut % (Auto) 75.7 H Lymph % (Auto) 15.4 L [place] % (Auto) 7.8 Eos % (Auto) 0.4 Baso % (Auto) 0.3 Lymph # (Auto) 1.17 [place] # (Auto) 0.6 Eos # (Auto) 0.0 Baso # (Auto) 0.0 Abs Immat Gran (auto) 0.03 Absolute Neuts (auto) 5.8 Absolute Nucleated RBC 0.000 Nucleated RBC % 0.0 APTT 65.6 H 74.6 H Sodium 136 L Potassium 4.2 Chloride 105 Carbon Dioxide 20 L Anion Gap 11 BUN 17 Creatinine 0.60 L Estim Creat Clear Calc 50 Estimated GFR > 60 Glucose 117 H POC Capillary Glucose 134 H Calcium 8.4 Phosphorus 3.9 Magnesium 2.2 Total Bilirubin 0.6 AST 31 ALT 17 Alkaline Phosphatase 91 Total Protein 7.0 Albumin 3.8 11/19/24 11/19/24 08:37 11:16 WBC RBC Hgb Hct MCV MCH MCHC RDW Plt Count MPV Immature Gran % (Auto) Neut % (Auto) Lymph % (Auto) [place] % (Auto) Eos % (Auto) Baso % (Auto) Lymph # (Auto) [place] # (Auto) Eos # (Auto) Baso # (Auto) Abs Immat Gran (auto) Absolute Neuts (auto) Absolute Nucleated RBC Nucleated RBC % APTT 80.5 H Sodium Potassium Chloride Carbon Dioxide Anion Gap BUN Creatinine Estim Creat Clear Calc Estimated GFR Glucose POC Capillary Glucose 121 H Calcium Phosphorus Magnesium Total Bilirubin AST ALT Alkaline Phosphatase Total Protein Albumin
[2024-11-19 12:25] LABS: Glucose Point of Care 133 mg/dl (65-105)
[2024-11-19 16:35] LABS: Glucose Point of Care 133 mg/dl (65-105)
[2024-11-19] MEDS: HEPARIN SOD/D5W 100 UNITS/ML 25,000 UNITS/250 ML BAG 10 UNITS IV CONT (17:09)
[2024-11-19 21:22] LABS: Glucose Point of Care 133 mg/dl (65-105)
[2024-11-20] VITALS (24 sets, daily range): BP systolic 96–116; BP diastolic 53–89; PULSE 75–125; RESP 20–34; TEMP 36.6–37; O2SAT 87–99
[2024-11-20] MEDS: AMIODARONE 360 MG/D5W 200 ML 360 MG/200 ML BAG 16.67 MG IV CONT (04:00)
[2024-11-20 04:35] LABS: Hematocrit 29.8 % (37.0-47.0); Hemoglobin 9.9 g/dL (12.0-15.0); Mean Corpuscular HGB Conc 33.2 g/dl (32-36); Mean Corpuscular Volume 96.4 fl (80-100); Mean Platelet Volume 9.6 fl (7.4-10.4); Platelet Count Result 238 k/mm3 (150-375); Red Blood Count 3.09 M/mm3 (4.2-5.4); Red Cell Distribution Width 13.5 % (11.5-14.5); White Blood Count 6.1 K/mm3 (4.5-10.0)
[2024-11-20 04:49] LABS: Alanine Aminotransferase 16 U/L (6-35); Albumin Level 3.1 g/dL (3.5-5.1); Alkaline Phosphatase 86 U/L (38-126); Anion Gap 10 mmol/L (4-12); Aspartate Amino Transferase 30 U/L (14-36); Bilirubin,Total 0.6 mg/dL (0.2-1.3); Blood Urea Nitrogen 15 mg/dL (7-17); Calcium 8.2 mg/dL (8.4-10.2); Carbon Dioxide 21 mmol/L (22-30); Chloride 102 mmol/L (98-107); Estimated CRCL calculation 50 ml/min; Estimated Glomerular Filt Rate > 60; Glucose 122 mg/dL (65-110); Magnesium 2.1 mg/dL (1.6-2.3); Potassium 3.2 mmol/L (3.4-5.0); Sodium 133 mmol/L (137-145)
[2024-11-20 04:53] LABS: Partial Thromboplastin Time 120.7 Seconds (22.3-36.8)
[2024-11-20] MEDS: LEVOTHYROXINE SODIUM 88 MCG TABLET PO (06:38)
[2024-11-20] MEDS: ASPIRIN 81 MG CHEWABLE TABLET PO (09:13)
[2024-11-20] MEDS: FERROUS SULFATE 325 MG TABLET DR BY MOUTH (09:13)
[2024-11-20] MEDS: THERAPEUTIC MULTIVITAMINS/MINERALS TAB (*BKC) 1 TABLET PO (09:13)
[2024-11-20] MEDS: POTASSIUM CHLORIDE 20 MEQ ER TABLET 40 MEQ PO (09:19)
[2024-11-20] MEDS: AMIODARONE HCL 200 MG TABLET PO (09:19)
[2024-11-20 09:38] LABS: Glucose Point of Care 141 mg/dl (65-105)
[2024-11-20 11:23] LABS: Partial Thromboplastin Time 78.6 Seconds (22.3-36.8)
[2024-11-20] MEDS: INSULIN ASPART (*BKC) 100 UNITS/ML SUB-Q (11:39)
[2024-11-20] MEDS: POTASSIUM CHLORIDE 20 MEQ PACKET (FOR LIQUID) PO (11:39)
[2024-11-20 11:41] LABS: Glucose Point of Care 223 mg/dl (65-105)
--- NOTE | 2024-11-20 11:45 | PM.IMPN ---
Progress Note: A&P Assessment and Plan (1) Non-STEMI (non-ST elevated myocardial infarction): Code(s): I21.4 - Non-ST elevation (NSTEMI) myocardial infarction Status: Acute Assessment and Plan: Patient presents with chest pain and found to have NSTEMI. Patient with history of CAD status post stenting in the past. Her history was not reliable due to dementia and some history was provided by patient's daughter. Pain was substernal in nature and of intensity 8/10. In the ER, she was started on nitroglycerin and heparin drip. She was noted to have an elevated troponin that peaked at 0.843 and a BNP of 9740. EKG showed sinus rhythm with sinus arrhythmia and nonspecific ST-T wave changes. Coronary angiogram 11/18 showed obstructive 2 vessel coronary artery disease with 90 % ostial left circumflex stenosis, 90% proximal LAD stenosis, 90% thrombotic stenosis within prior stent in mid LAD with ALEXANDER 1 flow in distal LAD. Echo showing LV systolic function reduced with EF of 35-40%, hypokinesis of the mid inferior septum and anterior septum, akinetic apex, moderate AI, moderate-severe MR, moderate TR and pulmonary hypertension. Plan to transfer to [place] for high risk PCI. Currently on heparin drip and aspirin. Cozaar and metoprolol on hold Cardiology following and appreciate their input (2) Type 2 diabetes mellitus with hyperglycemia: Qualifiers: Diabetes mellitus roasterman insulin use: without roasterman use Qualified Code(s): E11.65 - Type 2 diabetes mellitus with hyperglycemia Code(s): E11.65 - Type 2 diabetes mellitus with hyperglycemia Status: Acute Assessment and Plan: The patient's blood glucose was reviewed on 11/20 Glucose remains mostly well controlled. Continue AccuCheks covering with sliding scale. Hypoglycemia protocol available as needed. Continue to monitor (3) CHF (congestive heart failure): Code(s): I50.9 - Heart failure, unspecified Status: Acute Assessment and Plan: Chest x-ray shows pulmonary edema. Echo as above Received Lasix IV x1 on 11/16 Status post coronary angiogram, awaiting transfer to [facility] (4) Dementia: Qualifiers: Alzheimer's disease onset: late onset Dementia behavioral or psychological symptom: without behavioral, psychotic, or mood disturbance or anxiety Dementia severity: moderate Dementia type: Alzheimer's Qualified Code(s): G30.1 - Alzheimer's disease with late onset; F02.B0 - Dementia in other diseases classified elsewhere, moderate, without behavioral disturbance, psychotic disturbance, mood disturbance, and anxiety Code(s): F03.90 - Unspecified dementia, unspecified severity, without behavioral disturbance, psychotic disturbance, mood disturbance, and anxiety Status: Acute Assessment and Plan: Stable. Not on treatment for dementia. (5) Chest pain: Qualifiers: Chest pain type: chest pain due to myocardial ischemia Ischemic chest pain type: stable angina pectoris Qualified Code(s): I20.89 - Other forms of angina pectoris Code(s): R07.9 - Chest pain, unspecified Status: Acute Assessment and Plan: As above. Patient was negative for influenza, RSV and SARS-CoV-2 PCR (6) Moderate mitral regurgitation: Code(s): I34.0 - Nonrheumatic mitral (valve) insufficiency Status: Acute Assessment and Plan: Noted by Echo. Plan DVT prophylaxis -heparin infusion Nutrition: Diabetic diet Code Status - Full Code Subjective Date/time seen: 11/20/24 11:45 Interval history: 79-year-old female with past medical history of dementia, CAD status post PCI to LAD more than 10 years ago, moderate mitral regurgitation, moderate tricuspid regurgitation, HTN, HFpEF, anemia, hypothyroidism, GERD, and DM who presented to the ER along with her and daughter with chief complaint of sudden onset left-sided chest pain. Patient is alert but confused and unable to provide a history. in the room and he was updated. Review of Systems Review of Systems: ROS unobtainable: Yes unobtainable due to mental status Exam Narrative: AF 98 111/59 86 24 95% 2L Gen - NARD sitting up in the chair Chest - left base crackles o/w clear. CV - RRR S1/S2. Telemetry showing normal sinus rhythm Abd - Soft, NT/ND, Positive BS Ext - No pedal edema Neuro -alert but confused. Psych - Nml mood and affect Skin - Warm and dry Objective Data Vital Signs Vital Signs: Vital Signs - 24 hr 11/19/24 12:00 11/19/24 12:00 11/19/24 12:00 Temperature 97.9 F Pulse Rate 78 79 Respiratory Rate 26 H Blood Pressure 100/61 100/61 Pulse Oximetry 95 95 Oxygen Delivery Room Air Oxygen Flow Rate 11/19/24 12:00 11/19/24 14:00 11/19/24 14:00 Temperature Pulse Rate 75 78 78 Respiratory Rate Blood Pressure 104/58 L Pulse Oximetry Oxygen Delivery Oxygen Flow Rate 11/19/24 16:00 11/19/24 16:00 11/19/24 16:00 Temperature 98.4 F Pulse Rate 81 81 Respiratory Rate 18 Blood Pressure 107/67 107/67 Pulse Oximetry 96 Oxygen Delivery Room Air Oxygen Flow Rate 11/19/24 16:00 11/19/24 17:08 11/19/24 17:14 Temperature Pulse Rate 86 90 95 Respiratory Rate Blood Pressure 107/82 107/82 Pulse Oximetry Oxygen Delivery Oxygen Flow Rate 11/19/24 18:00 11/19/24 18:00 11/19/24 20:00 Temperature Pulse Rate 81 79 Respiratory Rate Blood Pressure 111/56 L Pulse Oximetry 95 Oxygen Delivery Nasal Cannula Oxygen Flow Rate 2 11/19/24 20:00 11/19/24 20:00 11/19/24 20:00 Temperature 98.2 F Pulse Rate 93 75 93 Respiratory Rate 21 H Blood Pressure 111/67 111/67 Pulse Oximetry 93 Oxygen Delivery Oxygen Flow Rate 11/19/24 22:00 11/20/24 00:00 11/20/24 00:00 Temperature Pulse Rate 88 75 Respiratory Rate Blood Pressure 107/66 Pulse Oximetry 93 Oxygen Delivery Nasal Cannula Oxygen Flow Rate 2 11/20/24 00:00 11/20/24 00:00 11/20/24 02:00 Temperature 98.6 F Pulse Rate 93 75 75 Respiratory Rate 20 Blood Pressure 96/54 L 96/54 L 97/53 L Pulse Oximetry 94 Oxygen Delivery Oxygen Flow Rate 11/20/24 03:59 11/20/24 04:00 11/20/24 04:00 Temperature Pulse Rate 88 88 Respiratory Rate Blood Pressure 96/62 L 96/62 L Pulse Oximetry 93 Oxygen Delivery Nasal Cannula Oxygen Flow Rate 2 11/20/24 04:00 11/20/24 04:00 11/20/24 06:00 Temperature 98.1 F Pulse Rate 88 88 83 Respiratory Rate 25 H Blood Pressure 96/62 L 112/70 Pulse Oximetry 95 Oxygen Delivery Oxygen Flow Rate 11/20/24 06:00 11/20/24 08:00 11/20/24 08:00 Temperature 98 F Pulse Rate 83 84 84 Respiratory Rate 24 H Blood Pressure 111/59 L 111/59 L Pulse Oximetry 95 Oxygen Delivery Oxygen Flow Rate 11/20/24 09:19 11/20/24 09:28 Temperature Pulse Rate 83 86 Respiratory Rate Blood Pressure 111/59 L Pulse Oximetry Oxygen Delivery Oxygen Flow Rate Intake/Output Intake/Output: Intake & Output 11/17/24 11/18/24 11/19/24 11/20/24 23:59 23:59 23:59 23:59 Intake Total 239.9 208.7 1052.0 468.4 Output Total 450 200 500 400 Balance -210.1 8.7 552.0 68.4 Meds/Results Medications: Active Medications Generic Name Dose Route Start Last Admin Trade Name Freq PRN Reason Stop Dose Admin Amiodarone HCl 200 mg 11/20/24 09:15 11/20/24 09:19 Amiodarone Hcl 200 Mg Tablet PO 200 mg DAILY@0800 DONNIE Administration Aspirin 81 mg 11/16/24 09:00 11/20/24 09:13 Aspirin 81 Mg Chewable Tablet PO 81 mg DAILY DONNIE Administration Dextrose 12.5 gm 11/15/24 21:00 Dextrose 50% 25 Gm/50 Ml Syringe IV PUSH PRN PRN Hypoglycemia Protocol Docusate Sodium 100 mg 11/16/24 06:34 11/19/24 05:15 Docusate Sodium 100 Mg Capsule PO 100 mg DAILY PRN Administration constipation Ferrous Sulfate 325 mg 11/16/24 09:00 11/20/24 09:13 Ferrous Sulfate [address] BY MOUTH 325 mg DAILY DONNIE Administration Glucagon 1 mg 11/15/24 21:00 Glucagon For Inj 1 Mg Vial IM PRN PRN Hypoglycemia Protocol Glucose 15 gm 11/15/24 21:00 Glucose Oral Gel 15 Gm Of Glucse In 37.5 Gm Tube PO PRN PRN Hypoglycemia Protocol Heparin Sodium (Porcine) 4,000 units 11/15/24 19:56 11/18/24 06:08 Heparin Sodium 5,000 Units/Ml Vial IV PUSH 4,000 units PRN PRN Administration aPTT less than 55 seconds Heparin Sodium (Porcine) 2,000 units 11/15/24 19:56 11/18/24 22:58 Heparin Sodium 5,000 Units/Ml Vial IV PUSH 2,000 units PRN PRN Administration aPTT 55 - 70 seconds Heparin Sodium/Dextrose 25,000 units in 250 mls @ 9 mls/hr 11/15/24 20:00 11/20/24 11:33 Heparin Sodium/D5w 100 Units/Ml IV CONT 900 units/hr .Q24H DONNIE 9 mls/hr Titration Protocol 900 UNITS/HR Dextrose 1,000 mls @ 100 mls/hr 11/15/24 21:00 Dextrose 5% 1,000 Ml IVPB PRN PRN Hypoglycemia Protocol Insulin Aspart 2 - 5 units 11/20/24 08:00 11/20/24 11:39 Insulin Aspart (*Bkc) 100 Units/Ml SUB-Q 2 units TIDWM DONNIE Administration Protocol Levothyroxine Sodium 88 mcg 11/16/24 06:45 11/20/24 06:38 Levothyroxine Sodium 88 Mcg Tablet PO 88 mcg DAILY@0630 DONNIE Administration Losartan Potassium 25 mg 11/16/24 09:00 11/18/24 16:58 Losartan Potassium 25 Mg Tablet PO Not Given BID DONNIE Metoprolol Tartrate 12.5 mg 11/16/24 09:00 11/18/24 22:50 Metoprolol Tartrate 12.5 Mg Tablet PO 12.5 mg Q12HR DONNIE Administration Multivitamins/Calcium 1 tablet 11/16/24 09:00 11/20/24 09:13 Therapeutic Multivitamins/Minerals Tab (*Bkc) PO 1 tablet DAILY DONNIE Administration Ondansetron HCl 4 mg 11/18/24 12:27 Ondansetron Inj 4 Mg/2 Ml Vial IV PUSH Q6H PRN Nausea And Vomiting Radiology Results: ITS Impressions Chest X-Ray 11/17/24 06:52 Impression: Moderate pulmonary edema pattern with small to moderate bilateral pleural effusions. Correlate clinically for pneumonia. Labs Labs: Laboratory Results - last 24 hr 11/19/24 11/19/24 11/19/24 12:04 16:14 21:11 WBC RBC Hgb Hct MCV MCH MCHC RDW Plt Count MPV APTT Sodium Potassium Chloride Carbon Dioxide Anion Gap BUN Creatinine Estim Creat Clear Calc Estimated GFR Glucose POC Capillary Glucose 133 H 133 H 133 H Calcium Magnesium Total Bilirubin AST ALT Alkaline Phosphatase Total Protein Albumin 11/20/24 11/20/24 11/20/24 04:07 08:46 10:53 WBC 6.1 RBC 3.09 L Hgb 9.9 L Hct 29.8 L MCV 96.4 MCH 32.0 MCHC 33.2 RDW 13.5 Plt Count 238 MPV 9.6 APTT 120.7 H 78.6 H Sodium 133 L Potassium 3.2 L Chloride 102 Carbon Dioxide 21 L Anion Gap 10 BUN 15 Creatinine 0.60 L Estim Creat Clear Calc 50 Estimated GFR > 60 Glucose 122 H POC Capillary Glucose 141 H Calcium 8.2 L Magnesium 2.1 Total Bilirubin 0.6 AST 30 ALT 16 Alkaline Phosphatase 86 Total Protein 6.0 L Albumin 3.1 L 11/20/24 11:36 WBC RBC Hgb Hct MCV MCH MCHC RDW Plt Count MPV APTT Sodium Potassium Chloride Carbon Dioxide Anion Gap BUN Creatinine Estim Creat Clear Calc Estimated GFR Glucose POC Capillary Glucose 223 H Calcium Magnesium Total Bilirubin AST ALT Alkaline Phosphatase Total Protein Albumin
--- NOTE | 2024-11-20 12:54 | PM.PNCARD ---
Progress Note: A&P Assessment and Plan (1) Non-STEMI (non-ST elevated myocardial infarction): Code(s): I21.4 - Non-ST elevation (NSTEMI) myocardial infarction Status: Acute (2) Cardiomyopathy: Code(s): I42.9 - Cardiomyopathy, unspecified Status: Acute (3) CHF (congestive heart failure): Code(s): I50.9 - Heart failure, unspecified Status: Acute (4) Elevated left ventricular end-diastolic pressure (LVEDP): Code(s): R94.30 - Abnormal result of cardiovascular function study, unspecified Status: Acute (5) Moderate aortic regurgitation: Code(s): I35.1 - Nonrheumatic aortic (valve) insufficiency Status: Acute (6) Moderate mitral regurgitation: Code(s): I34.0 - Nonrheumatic mitral (valve) insufficiency Status: Acute (7) Moderate tricuspid regurgitation: Code(s): I07.1 - Rheumatic tricuspid insufficiency Status: Acute (8) Type 2 diabetes mellitus with hyperglycemia: Qualifiers: Diabetes mellitus snf insulin use: without phlebotomy director use Qualified Code(s): E11.65 - Type 2 diabetes mellitus with hyperglycemia Code(s): E11.65 - Type 2 diabetes mellitus with hyperglycemia Status: Acute Plan 1. Obstructive 2 vessel coronary artery disease with 90% ostial left circumflex stenosis, 90% proximal LAD stenosis, 90% thrombotic stenosis within prior stent in mid LAD with ALEXANDER 1 flow in distal LAD-patient without any chest pain, electrical instability, no ST elevations on EKG 2. NSTEMI secondary to thrombotic stenosis in mid LAD-patient has onset of chest pain 3-4 days back 3. Acute on chronic heart failure: Echo shows new drop in LVEF to 35% with regional wall motion abnormalities; LVEDP 20 mm Hg 4. Valvular heart disease: Moderate to severe MR, moderate TR, moderate AR 5. New AFib with RVR with rates in the 140s initially; rate better controlled with amiodarone (was started becuase pt had low blood pressure precluding use of AV grace blockers) 6. Type 2 diabetes mellitus Plan: -awaiting transfer to [facility] for complex PCI; we contacted them again and possible transfer today -patient is chest pain free, she is electrically stable, BP improved with SBP in the 110s -switch to PO amiodarone 200mg daily -continue heparin for anticoagulation -Continue Aspirin 81 mg daily. Second antiplatelet agent to be loaded at the time of her PCI -Continue statin -Holding Metoprolol and losartan given low blood pressure. Unable to add any GDMT for new cardiomyopathy given hypotension -Management of other medical issues per ICU team -Family was at bedside this morning to discuss the delay in transfer. I discussed patient's medical condition and all efforts for transfer Subjective Date/time seen: 11/20/24 12:54 Interval history: Katja Diaz is a 79-year-old female with past medical history of dementia, coronary artery disease status post PCI to LAD more than 10 years ago, moderate mitral regurgitation, moderate tricuspid regurgitation, hypertension, HFpEF, anemia, hypothyroidism, GERD, diabetes who presented to the ER with chief complaint of sudden onset left-sided chest pain. She was noted to have an elevated troponin that peaked at 0.843 and a BNP of 9740. EKG showed sinus rhythm with sinus arrhythmia and nonspecific ST-T wave changes. She was started on nitro and heparin drips after which her chest pain resolved. Cardiology was consulted for further management. She underwent cardiac catheterization which showed 90% thrombotic stenosis in mid LAD with ALEXANDER 1 flow in distal vessel, 90% stenosis of ostial LCX and proximal LAD, non dominant RCA angiographically free of disease. She was chest pain-free and electrically stable and transfer to [facility] was initiated for complex PCI with mechanical support. Workup: Hemoglobin 11.2 Troponin peaked at 0.843 BNP 9740 LDL 56 EKG sinus rhythm with sinus arrhythmia, nonspecific ST-T wave changes TTE in 2018 showed LV ejection fraction of 60-65% and moderate MR and moderate TR TTE in 09/2024 showed LVEF of 58% and moderate MR and moderate AR Monitor in 09/2024 with average heart rate 65 beats per minute, low frequency ventricular ectopy, frequent supraventricular ectopy but generally in single beat form, no atrial fibrillation and no patient triggered events Catheterization in 2021 showed patent LAD stent and 60% stenosis of an ostial diagonal Cardiac catheterization: 90% thrombotic stenosis in mid LAD with ALEXANDER 1 flow in distal vessel, 90% stenosis of ostial LCX and proximal LAD, non dominant RCA angiographically free of disease TTE this hospitalization: LVEF is depressed to 35-40% with regional wall motion abnormalities (hypokinesis of the mid inferoseptum and anteroseptum, akinetic apex), moderate to severe MR, moderate AR, moderate TR Interval history: A fib is rate controlled this morning. SBP in the 110s range. She is sitting up in a chair and eating breakfast. She denies any chest pain, SOB, dizziness, LH, nausea, emesis, abdominal pain. Review of Systems Review of Systems: Complete review of systems was not performed as patient has dementia Exam Narrative: General: Alert oriented x3, no acute distress Neck: Supple, JVD + Chest: Bilaterally clear to auscultation, no rales or rhonchi Cardiac: S1, S2 +, irregularly irregular rhythm, systolic murmur at apex, diastolic murmur best heard in the 2nd intercostal space Extremities: Bilateral lower extremity edema 1+, no skin rash Neurologic: Alert and oriented x3, no focal neurological deficits Objective Data Vital Signs Vital Signs: Vital Signs - 24 hr 11/19/24 14:00 11/19/24 14:00 11/19/24 16:00 Temperature 36.9 C Pulse Rate 78 78 81 Respiratory Rate 18 Blood Pressure 104/58 L 107/67 Pulse Oximetry 96 Oxygen Delivery Oxygen Flow Rate 11/19/24 16:00 11/19/24 16:00 11/19/24 16:00 Temperature Pulse Rate 81 86 Respiratory Rate Blood Pressure 107/67 Pulse Oximetry Oxygen Delivery Room Air Oxygen Flow Rate 11/19/24 17:08 11/19/24 17:14 11/19/24 18:00 Temperature Pulse Rate 90 95 81 Respiratory Rate Blood Pressure 107/82 107/82 111/56 L Pulse Oximetry Oxygen Delivery Oxygen Flow Rate 11/19/24 18:00 11/19/24 20:00 11/19/24 20:00 Temperature Pulse Rate 79 93 Respiratory Rate Blood Pressure Pulse Oximetry 95 Oxygen Delivery Nasal Cannula Oxygen Flow Rate 2 11/19/24 20:00 11/19/24 20:00 11/19/24 22:00 Temperature 36.8 C Pulse Rate 75 93 88 Respiratory Rate 21 H Blood Pressure 111/67 111/67 107/66 Pulse Oximetry 93 Oxygen Delivery Oxygen Flow Rate 11/20/24 00:00 11/20/24 00:00 11/20/24 00:00 Temperature 37.0 C Pulse Rate 75 93 Respiratory Rate 20 Blood Pressure 96/54 L Pulse Oximetry 93 94 Oxygen Delivery Nasal Cannula Oxygen Flow Rate 2 11/20/24 00:00 11/20/24 02:00 11/20/24 03:59 Temperature Pulse Rate 75 75 Respiratory Rate Blood Pressure 96/54 L 97/53 L Pulse Oximetry 93 Oxygen Delivery Nasal Cannula Oxygen Flow Rate 2 11/20/24 04:00 11/20/24 04:00 11/20/24 04:00 Temperature 36.7 C Pulse Rate 88 88 88 Respiratory Rate 25 H Blood Pressure 96/62 L 96/62 L 96/62 L Pulse Oximetry 95 Oxygen Delivery Oxygen Flow Rate 11/20/24 04:00 11/20/24 06:00 11/20/24 06:00 Temperature Pulse Rate 88 83 83 Respiratory Rate Blood Pressure 112/70 Pulse Oximetry Oxygen Delivery Oxygen Flow Rate 11/20/24 08:00 11/20/24 08:00 11/20/24 09:19 Temperature 36.6 C Pulse Rate 84 84 83 Respiratory Rate 24 H Blood Pressure 111/59 L 111/59 L Pulse Oximetry 95 Oxygen Delivery Oxygen Flow Rate 11/20/24 09:28 Temperature Pulse Rate 86 Respiratory Rate Blood Pressure 111/59 L Pulse Oximetry Oxygen Delivery Oxygen Flow Rate Intake/Output Intake/Output: Intake & Output 11/17/24 11/18/24 11/19/24 11/20/24 23:59 23:59 23:59 23:59 Intake Total 239.9 208.7 1052.0 468.4 Output Total 450 200 500 400 Balance -210.1 8.7 552.0 68.4 Meds/Results Medications: Active Medications Generic Name Dose Route Start Last Admin Trade Name Freq PRN Reason Stop Dose Admin Amiodarone HCl 200 mg 11/20/24 09:15 11/20/24 09:19 Amiodarone Hcl 200 Mg Tablet PO 200 mg DAILY@0800 DONNIE Administration Aspirin 81 mg 11/16/24 09:00 11/20/24 09:13 Aspirin 81 Mg Chewable Tablet PO 81 mg DAILY ODNNIE Administration Dextrose 12.5 gm 11/15/24 21:00 Dextrose 50% 25 Gm/50 Ml Syringe IV PUSH PRN PRN Hypoglycemia Protocol Docusate Sodium 100 mg 11/16/24 06:34 11/19/24 05:15 Docusate Sodium 100 Mg Capsule PO 100 mg DAILY PRN Administration constipation Ferrous Sulfate 325 mg 11/16/24 09:00 11/20/24 09:13 Ferrous Sulfate [address] BY MOUTH 325 mg DAILY DONNIE Administration Glucagon 1 mg 11/15/24 21:00 Glucagon For Inj 1 Mg Vial IM PRN PRN Hypoglycemia Protocol Glucose 15 gm 11/15/24 21:00 Glucose Oral Gel 15 Gm Of Glucse In 37.5 Gm Tube PO PRN PRN Hypoglycemia Protocol Heparin Sodium (Porcine) 4,000 units 11/15/24 19:56 11/18/24 06:08 Heparin Sodium 5,000 Units/Ml Vial IV PUSH 4,000 units PRN PRN Administration aPTT less than 55 seconds Heparin Sodium (Porcine) 2,000 units 11/15/24 19:56 11/18/24 22:58 Heparin Sodium 5,000 Units/Ml Vial IV PUSH 2,000 units PRN PRN Administration aPTT 55 - 70 seconds Heparin Sodium/Dextrose 25,000 units in 250 mls @ 9 mls/hr 11/15/24 20:00 11/20/24 11:33 Heparin Sodium/D5w 100 Units/Ml IV CONT 900 units/hr .Q24H DONNIE 9 mls/hr Titration Protocol 900 UNITS/HR Dextrose 1,000 mls @ 100 mls/hr 11/15/24 21:00 Dextrose 5% 1,000 Ml IVPB PRN PRN Hypoglycemia Protocol Insulin Aspart 2 - 5 units 11/20/24 08:00 11/20/24 11:39 Insulin Aspart (*Bkc) 100 Units/Ml SUB-Q 2 units TIDWM DONNIE Administration Protocol Levothyroxine Sodium 88 mcg 11/16/24 06:45 11/20/24 06:38 Levothyroxine Sodium 88 Mcg Tablet PO 88 mcg DAILY@0630 DONNIE Administration Losartan Potassium 25 mg 11/16/24 09:00 11/18/24 16:58 Losartan Potassium 25 Mg Tablet PO Not Given BID DONNIE Metoprolol Tartrate 12.5 mg 11/16/24 09:00 11/18/24 22:50 Metoprolol Tartrate 12.5 Mg Tablet PO 12.5 mg Q12HR DONNIE Administration Multivitamins/Calcium 1 tablet 11/16/24 09:00 11/20/24 09:13 Therapeutic Multivitamins/Minerals Tab (*Bkc) PO 1 tablet DAILY DONNIE Administration Ondansetron HCl 4 mg 11/18/24 12:27 Ondansetron Inj 4 Mg/2 Ml Vial IV PUSH Q6H PRN Nausea And Vomiting Radiology Results: ITS Impressions Chest X-Ray 11/17/24 06:52 Impression: Moderate pulmonary edema pattern with small to moderate bilateral pleural effusions. Correlate clinically for pneumonia. Labs Labs: Laboratory Results - last 24 hr 11/19/24 11/19/24 11/20/24 16:14 21:11 04:07 WBC 6.1 RBC 3.09 L Hgb 9.9 L Hct 29.8 L MCV 96.4 MCH 32.0 MCHC 33.2 RDW 13.5 Plt Count 238 MPV 9.6 APTT 120.7 H Sodium 133 L Potassium 3.2 L Chloride 102 Carbon Dioxide 21 L Anion Gap 10 BUN 15 Creatinine 0.60 L Estim Creat Clear Calc 50 Estimated GFR > 60 Glucose 122 H POC Capillary Glucose 133 H 133 H Calcium 8.2 L Magnesium 2.1 Total Bilirubin 0.6 AST 30 ALT 16 Alkaline Phosphatase 86 Total Protein 6.0 L Albumin 3.1 L 11/20/24 11/20/24 11/20/24 08:46 10:53 11:36 WBC RBC Hgb Hct MCV MCH MCHC RDW Plt Count MPV APTT 78.6 H Sodium Potassium Chloride Carbon Dioxide Anion Gap BUN Creatinine Estim Creat Clear Calc Estimated GFR Glucose POC Capillary Glucose 141 H 223 H Calcium Magnesium Total Bilirubin AST ALT Alkaline Phosphatase Total Protein Albumin
[2024-11-20] MEDS: ONDANSETRON INJ 4 MG/2 ML VIAL IV PUSH ×2 (13:51→21:02)
[2024-11-20 17:10] LABS: Partial Thromboplastin Time 38.8 Seconds (22.3-36.8)
--- NOTE | 2024-11-20 17:25 | PC.NURSE ---
1325- patient transferred from commode to bed. Patient had no complaints of CP at this time. Patient resting comfortably. 1330- Patient complaining of chest pain radating down left arm. Patient SOB. See vital signs. Patient complain of nausea. Patient had large projectile emesis. 3L Venti mask applied for oxygen sats and work of breathing. EKG obtained. Dr Cortez paged to bedside. 1400- Diego orders 2nd ekg now that patient cp resolved and HR is lower. ISchemia resolved. Bedrest orders put in. Diego updates family at bedside. Awaiting transfer to [facility]. Patient resting comfortably.
[2024-11-20] MEDS: HEPARIN SODIUM 5,000 UNITS/ML VIAL 4000 UNITS IV PUSH (17:51)
[2024-11-20 18:41] LABS: Glucose Point of Care 114 mg/dl (65-105)
--- NOTE | 2024-11-20 18:57 | PM.TDS ---
Transfer Discharge Sum: Prov Provider Date of admission: 11/16/24 08:01 Primary care physician: Zora Chavez MD Admitting clinician: Brittni Dominique DO Consults: 11/16/24 Consult to Physician Routine Comment: Consulting Provider: Pablo Casey Reason for consultation: NSTEMI Has provider been notified: Yes Consult to Physician Routine Comment: Consulting Provider: Alexis Go Reason for consultation: NSTEMI Has provider been notified: Yes 11/17/24 Care Coordination Consult Routine Reason for Consult:: Skilled Nursing Placement Home Health Receiving physician/facility: [facility] DS: Admitting Diagnosis Discharge Date 11/20/24 Admitting Diagnosis Chest pain DS: Discharge Diagnosis Discharge Diagnosis (1) Non-STEMI (non-ST elevated myocardial infarction): Code(s): I21.4 - Non-ST elevation (NSTEMI) myocardial infarction Status: Acute (2) Type 2 diabetes mellitus with hyperglycemia: 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: without fci use Qualified Code(s): E11.65 - Type 2 diabetes mellitus with hyperglycemia Code(s): E11.65 - Type 2 diabetes mellitus with hyperglycemia Status: Acute (3) CHF (congestive heart failure): Code(s): I50.9 - Heart failure, unspecified Status: Acute (4) Dementia: Qualifiers: Alzheimer's disease onset: late onset Dementia behavioral or psychological symptom: without behavioral, psychotic, or mood disturbance or anxiety Dementia severity: moderate Dementia type: Alzheimer's Qualified Code(s): G30.1 - Alzheimer's disease with late onset; F02.B0 - Dementia in other diseases classified elsewhere, moderate, without behavioral disturbance, psychotic disturbance, mood disturbance, and anxiety Code(s): F03.90 - Unspecified dementia, unspecified severity, without behavioral disturbance, psychotic disturbance, mood disturbance, and anxiety Status: Acute (5) Chest pain: Qualifiers: Chest pain type: chest pain due to myocardial ischemia Ischemic chest pain type: stable angina pectoris Qualified Code(s): I20.89 - Other forms of angina pectoris Code(s): R07.9 - Chest pain, unspecified Status: Acute (6) Moderate mitral regurgitation: Code(s): I34.0 - Nonrheumatic mitral (valve) insufficiency Status: Acute Transfer Discharge Sum: Med Medications Active and Home Medications: Home Medications losartan 25 mg tablet 25 mg PO BID 08/25/19 [History Confirmed 11/16/24] metoprolol tartrate 25 mg tablet 12.5 mg PO BID 08/25/19 [History Confirmed 11/16/24] ambyyzpzychi-Xe-dkhg-minerals (Multiple Vitamin, Womens tablet) 1 tablet PO DAILY 03/05/20 [History Confirmed 11/16/24] lancets (Accu-Chek Fastclix Lancet Drum) #100 ea 10/04/21 [Rx Confirmed 11/16/24] blood sugar diagnostic (B2B-Center Ultra Test strips) #100 ea 04/12/22 [Rx Confirmed 11/16/24] ferrous sulfate 325 mg (65 mg iron) tablet 325 mg PO DAILY #1 tablet 02/14/24 [Rx Confirmed 11/16/24] metformin 500 mg tablet,extended release 24 hr 500 mg PO DAILY #90 tabs 05/25/24 [Rx Confirmed 11/16/24] aspirin 81 mg chewable tablet (Maxime Chewable Low Dose Aspirin) 81 mg PO DAILY 11/16/24 [History Confirmed 11/16/24] docusate sodium 100 mg capsule (Colace) 100 mg PO DAILY PRN constipation 11/16/24 [History Confirmed 11/16/24] levothyroxine 88 mcg tablet See Rx Instructions .Route .COMPLEX 11/16/24 [History Confirmed 11/16/24] Active Medications Amiodarone HCl (Amiodarone Hcl 200 Mg Tablet) 200 mg PO DAILY@0800 [facility] Last Admin: 11/20/24 09:19 Dose: 200 mg Aspirin (Aspirin 81 Mg Chewable Tablet) 81 mg PO DAILY [facility] Last Admin: 11/20/24 09:13 Dose: 81 mg Dextrose (Dextrose 50% 25 Gm/50 Ml Syringe) 12.5 gm IV PUSH PRN PRN; Protocol PRN Reason: Hypoglycemia Docusate Sodium (Docusate Sodium 100 Mg Capsule) 100 mg PO DAILY PRN PRN Reason: constipation Last Admin: 11/19/24 05:15 Dose: 100 mg Ferrous Sulfate (Ferrous Sulfate [address]) 325 mg BY MOUTH DAILY [facility] Last Admin: 11/20/24 09:13 Dose: 325 mg Glucagon (Glucagon For Inj 1 Mg Vial) 1 mg IM PRN PRN; Protocol PRN Reason: Hypoglycemia Glucose (Glucose Oral Gel 15 Gm Of Glucse In 37.5 Gm Tube) 15 gm PO PRN PRN; Protocol PRN Reason: Hypoglycemia Heparin Sodium (Porcine) (Heparin Sodium 5,000 Units/Ml Vial) 4,000 units IV PUSH PRN PRN PRN Reason: aPTT less than 55 seconds Last Admin: 11/20/24 17:51 Dose: 4,000 units Heparin Sodium (Porcine) (Heparin Sodium 5,000 Units/Ml Vial) 2,000 units IV PUSH PRN PRN PRN Reason: aPTT 55 - 70 seconds Last Admin: 11/18/24 22:58 Dose: 2,000 units Heparin Sodium/Dextrose (Heparin Sodium/D5w 100 Units/Ml) 25,000 units in 250 mls @ 11 mls/hr IV CONT .[id number] [facility]; Protocol Last Titration: 11/20/24 17:58 Dose: 1,100 units/hr, 11 mls/hr Dextrose (Dextrose 5% 1,000 Ml) 1,000 mls @ 100 mls/hr IVPB PRN PRN; Protocol PRN Reason: Hypoglycemia Insulin Aspart (Insulin Aspart (*Bkc) 100 Units/Ml) 2 - 5 units SUB-Q TIDWM [facility]; Protocol Last Admin: 11/20/24 17:58 Dose: Not Given Levothyroxine Sodium (Levothyroxine Sodium 88 Mcg Tablet) 88 mcg PO DAILY@0630 [facility] Last Admin: 11/20/24 06:38 Dose: 88 mcg Losartan Potassium (Losartan Potassium 25 Mg Tablet) 25 mg PO BID [facility] Last Admin: 11/18/24 16:58 Dose: Not Given Metoprolol Tartrate (Metoprolol Tartrate 12.5 Mg Tablet) 12.5 mg PO Q12HR [facility] Last Admin: 11/18/24 22:50 Dose: 12.5 mg Multivitamins/Calcium (Therapeutic Multivitamins/Minerals Tab (*Bkc)) 1 tablet PO DAILY [facility] Last Admin: 11/20/24 09:13 Dose: 1 tablet Ondansetron HCl (Ondansetron Inj 4 Mg/2 Ml Vial) 4 mg IV PUSH Q6H PRN PRN Reason: Nausea And Vomiting Last Admin: 11/20/24 13:51 Dose: 4 mg Transfer Discharge Sum: Hosp Hospital Course Hospital course: Katja Diaz is a 79 year old female with history of dementia, CAD status post PCI to LAD more than 10 years ago, moderate mitral regurgitation, moderate tricuspid regurgitation, HTN, HFpEF, anemia, hypothyroidism, GERD, and DM who presented to the ER along with her and daughter with chief complaint of sudden onset left-sided chest pain. Please see H&P for details. Patient presented with chest pain and found to have NSTEMI. Her history was not reliable due to dementia and some history was provided by patient's daughter. Pain was substernal in nature and of intensity 8/10. In the ER, she was started on nitroglycerin and heparin drip. Patient was negative for influenza, RSV and SARS-CoV-2 PCR. She was noted to have an elevated troponin that peaked at 0.843 and a BNP of 9740. EKG showed sinus rhythm with sinus arrhythmia and nonspecific ST-T wave changes. 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 Coronary angiogram 11/18 showed obstructive 2 vessel coronary artery disease with 90% ostial left circumflex stenosis, 90% proximal LAD stenosis, 90% thrombotic stenosis within prior stent in mid LAD with ALEXANDER 1 flow in distal LAD. Echo showing LV systolic function reduced with EF of 35-40%, hypokinesis of the mid inferior septum and anterior septum, akinetic apex, moderate AI, moderate-severe MR, moderate TR and pulmonary hypertension. She remained on heparin drip and aspirin. Cozaar and metoprolol were on hold. Chest x-ray shows pulmonary edema. She received Lasix IV x1 but this was not continued. She remained on room air. Plan was for transfer to [facility] for high risk PCI and this was arranged. Patient was accepted and transferred in stable condition on 11/20/24. Time Spent with Patient Time attestation: Total time spent providing and/or coordinating transfer services: 34 minutes Total time spent: Greater than 30 minutes Exam Narrative: AF 98 111/59 86 24 95% 2L Gen - NARD sitting up in the chair Chest - left base crackles o/w clear. CV - RRR S1/S2. Telemetry showing normal sinus rhythm Abd - Soft, NT/ND, Positive BS Ext - No pedal edema Neuro -alert but confused. Psych - Nml mood and affect Skin - Warm and dry DS: Data Data Completed and Pending Labs on day of discharge: Labs from last 24 hours 11/20/24 11/20/24 11/20/24 17:57 16:40 11:36 WBC RBC Hgb Hct MCV MCH MCHC RDW Plt Count MPV APTT 38.8 H Sodium Potassium Chloride Carbon Dioxide Anion Gap BUN Creatinine Estim Creat Clear Calc Estimated GFR Glucose POC Capillary Glucose 114 H 223 H Calcium Magnesium Total Bilirubin AST ALT Alkaline Phosphatase Total Protein Albumin 11/20/24 11/20/24 11/20/24 10:53 08:46 04:07 WBC 6.1 RBC 3.09 L Hgb 9.9 L Hct 29.8 L MCV 96.4 MCH 32.0 MCHC 33.2 RDW 13.5 Plt Count 238 MPV 9.6 APTT 78.6 H 120.7 H Sodium 133 L Potassium 3.2 L Chloride 102 Carbon Dioxide 21 L Anion Gap 10 BUN 15 Creatinine 0.60 L Estim Creat Clear Calc 50 Estimated GFR > 60 Glucose 122 H POC Capillary Glucose 141 H Calcium 8.2 L Magnesium 2.1 Total Bilirubin 0.6 AST 30 ALT 16 Alkaline Phosphatase 86 Total Protein 6.0 L Albumin 3.1 L 11/19/24 21:11 WBC RBC Hgb Hct MCV MCH MCHC RDW Plt Count MPV APTT Sodium Potassium Chloride Carbon Dioxide Anion Gap BUN Creatinine Estim Creat Clear Calc Estimated GFR Glucose POC Capillary Glucose 133 H Calcium Magnesium Total Bilirubin AST ALT Alkaline Phosphatase Total Protein Albumin
[2024-11-20 20:31] LABS: Glucose Point of Care 144 mg/dl (65-105)
[2024-11-20] MEDS: NITROGLYCERIN SL 0.4 MG TABLET SUBLINGUAL ×2 (21:10→21:15)
[2024-11-20 21:36] LABS: Anion Gap 10 mmol/L (4-12); Blood Urea Nitrogen 14 mg/dL (7-17); Calcium 8.8 mg/dL (8.4-10.2); Carbon Dioxide 23 mmol/L (22-30); Chloride 101 mmol/L (98-107); Estimated CRCL calculation 48 ml/min; Estimated Glomerular Filt Rate > 60; Glucose 173 mg/dL (65-110); Magnesium 2.2 mg/dL (1.6-2.3); Phosphorus 2.5 mg/dL (2.5-4.5); Potassium 4.3 mmol/L (3.4-5.0); Sodium 134 mmol/L (137-145)
--- NOTE | 2024-11-20 22:50 | PC.NURSE ---
Pt transfered to [facility] via [facility]. Updated report given to [facility] RN. Pt comfortable verb no complaints. HR 99-101, RR 24, Sat 95% on 4 l NC. BP 110-63. Daughter updated at bedside.
== END 2024-11-20 22:46 | disposition short-term general hospital (02) | DRG 280 ==
LOC: ANHED 20:14 → ANHICU 23:54 → ANHIMU 11-17 23:16 → ANHICU 11-18 11:38
PROVIDERS: Emergency Medicine; Internal Medicine; Internal Medicine Interventional Cardiology; Student in an Organized Health Care Education/Training Program; Admitting Provider Internal Medicine; Emergency Provider Emergency Medicine; PCP Family Medicine; Visit Provider Internal Medicine
PROC: 4A023N7 Measurement of Cardiac Sampling and Pressure, Left Heart, Percutaneous Approach (ICD-10-PCS; CPT 93452; principal; 2024-11-18 10:00)
DX: I21.4 Non-ST elevation (NSTEMI) myocardial infarction (principal); I50.33 Acute on chronic diastolic (congestive) heart failure; I42.9 Cardiomyopathy, unspecified; T82.855A Stenosis of coronary artery stent, initial encounter; I25.10 Atherosclerotic heart disease of native coronary artery without angina pectoris; E11.65 Type 2 diabetes mellitus with hyperglycemia; I34.0 Nonrheumatic mitral (valve) insufficiency; F03.90 Unspecified dementia, unspecified severity, without behavioral disturbance, psychotic disturbance, mood disturbance, and anxiety; D64.9 Anemia, unspecified; E03.9 Hypothyroidism, unspecified; K21.9 Gastro-esophageal reflux disease without esophagitis; I35.1 Nonrheumatic aortic (valve) insufficiency; M19.90 Unspecified osteoarthritis, unspecified site; I73.00 Raynaud's syndrome without gangrene; K44.9 Diaphragmatic hernia without obstruction or gangrene; Z95.5 Presence of coronary angioplasty implant and graft; Z90.710 Acquired absence of both cervix and uterus
CPT/HCPCS: 36415; 71045; 71046; 80048; 80053; 80061; 82948; 83690; 83735; 83880; 84100; 84484; 85025; 85027; 85610; 85730; 87637; 87641; 93005; 93458; 96361; 96374; 99291; A9270; C1769; C1887; C1894; C8929; G0378; J0282; J1644; J1815; J1940; J2003; J2250; J2305; J2405; J3010; J7030; J7040; J7120; Q9957